=== PATIENT | female | born 1950 | race Two or more races ===

== ENCOUNTER 2020-07-25 13:25 | Outpatient (REF) | payer MEDICARE, SELFPAY ==
--- NOTE | 2020-07-25 | MM_ITS ---
EXAMINATION: MM SCREENING DIGITAL BREAST TOMOSYNTHESIS, BILATERAL CLINICAL INFORMATION: Screening. Asymptomatic. The lifetime risk of breast cancer based on the Tyrer-Cuzick Model is 3%. COMPARISON: Mammography: 09/08/2018, 08/18/2017 TECHNIQUE: Digital breast tomosynthesis is performed in both the craniocaudal and mediolateral oblique views along with computer-aided detection (CAD). Synthesized 2D images are generated from the tomosynthesis. FINDINGS: There are scattered areas of fibroglandular density (ACR BI-RADS breast composition Category b). Parenchymal pattern is similar to prior studies. There is a stable circumscribed nodule central outer left breast and intramammary node posterior upper outer right breast again seen. Bilateral parenchymal asymmetries are similar to prior studies. No developing density or interval mass or architectural abnormality. No abnormal calcifications. MM/MM tomosynthesis screening BI IMPRESSION: No significant changes from prior studies. ASSESSMENT: BI-RADS 2: Benign RECOMMENDATION: Routine annual mammography screening. This patient's information was entered into a reminder system with a target due date for their next mammogram.
== END 2020-07-25 13:26 | disposition home or self-care (01) ==
LOC: HO.MAMMO 13:25
PROVIDERS: PCP Internal Medicine; Visit Provider Internal Medicine
DX: Z12.31 Encounter for screening mammogram for malignant neoplasm of breast (principal)
CPT/HCPCS: 77063; 77067

== ENCOUNTER 2020-08-04 12:34 | Outpatient (REF) | payer MEDICARE, SELFPAY ==
[2020-08-04 13:17] LABS: MANUAL DIFF FLAG NO
[2020-08-04 13:19] LABS: Basophils Absolute Auto 0.1 X10*3/uL (0.0-0.2); Basophils Percent Auto 0.7 % (0-2); Eosinophils Absolute Auto 0.2 X10*3/uL (0.0-0.4); Eosinophils Percent Auto 1.9 % (0-4); Hematocrit 40.3 % (37-47); Hemoglobin 12.8 g/dl (12.0-16.0); Imm Gran Abs Auto 0.04 X10*3/uL (0.00-0.03); Imm Gran Pct Auto 0.4 % (0.0-0.4); Lymphocytes Absolute Auto 2.2 X10*3/uL (1.2-4.9); Lymphocytes Percent Auto 24.7 % (20-40); Mean Corpuscular HGB Conc 31.8 g/dl (31.0-35.0); Mean Corpuscular Hemoglobin 27.8 pg (27.0-33.0); Mean Corpuscular Volume 87.6 fL (80-98); Monocytes Absolute Auto 0.5 X10*3/uL (0.1-1.2); Neutrophils Absolute Auto 5.9 X10*3/uL (2.0-8.3); Neutrophils Percent Auto 66.3 % (45-73); Platelet Count 254 X10*3/uL (160-400); Red Cell Distribution Width 13.3 % (11.0-16.0)
[2020-08-04 13:37] LABS: Estimated Average Glucose 166 mg/dL; Hemoglobin A1c % 7.4 %
[2020-08-04 13:50] LABS: Alanine Aminotransferase 15 U/L (0-31); Albumin Level 4.3 g/dL (3.5-5.0); Alkaline Phosphatase 70 U/L (39-117); Anion Gap 13 (12-20); Aspartate Amino Transferase 17 U/L (5-31); Bilirubin Total 0.5 mg/dL (0.0-1.0); Blood Urea Nitrogen 19 mg/dL (9-16); Calcium 9.6 mg/dL (8.4-10.2); Carbon Dioxide 30 mmol/L (22-29); Chloride 103 mmol/L (96-108); Cholesterol 171 mg/dL; Estimated Glomerular Filt Rate 55; Glucose Fasting 136 mg/dL (60-99); HDL Cholesterol 47 mg/dL; LDL Cholesterol Calculated 96 mg/dl; Potassium 4.9 mmol/l (3.3-5.1); Sodium 141 mmol/L (135-145); Total Protein 7.5 g/dL (6.5-8.0); Triglycerides 140 mg/dL
[2020-08-04 14:01] LABS: Creatinine Urine 162.68 mg/dL; Microalbum/Creatinine Ratio Ur 39.3 ug/mg cr
== END 2020-08-04 12:35 | disposition home or self-care (01) ==
LOC: HO.LAB 12:34
PROVIDERS: PCP Internal Medicine; Visit Provider Physician Assistant
DX: E11.9 Type 2 diabetes mellitus without complications (principal); I10 Essential (primary) hypertension
CPT/HCPCS: 36415; 80053; 80061; 82043; 83036; 85025

== ENCOUNTER 2020-08-14 10:24 | Day surgery (SDC) | payer MEDICARE, SELFPAY ==
[2020-08-07 14:38] VITALS: BMI 34.5
--- NOTE | 2020-08-10 09:00 | MHC.SHP ---
Pre-Procedural Eval Section A The patient is an INPATIENT: No The History & Physical has been completed within 30 days and I have reviewed it.: Yes Section B Chief Complaint: Cataract Left Eye Allergies: Allergies Allergy/AdvReac Type Severity Reaction Status Date / Time codeine [CODEINE] Allergy Intermediate RASH Verified 08/02/20 13:56 Plan Diagnosis/Plan: Unchanged Patient has been examined and remains a candidate for the planned procedure
--- NOTE | 2020-08-11 11:25 | HO.ANESPROP2 ---
Documented by User: Kenya Navarro 08/11/20 11:27 HPI - Anesthesia Eval Consult details Narrative: 70yo F for Cataract Extraction PCP cleared Right eye done 2018; Fent 100, Midaz 20, Prop 40 [facility] Past Medical History Medical History Angina pectoris Arthritis Asthma Diabetes Elevated cholesterol GERD (gastroesophageal reflux disease) Hx of renal calculi Hx of simple renal cyst Family History Family History Father Stroke Mother Cancer Surgical History Surgical History H/O colonoscopy History of right cataract surgery History of tubal ligation History of varicose veins Social History Social History Alcohol intake: never Smoking Status: Former smoker Tobacco Type: Cigarette Smoked in Last 30 Days: No Smoking Quit Date: 1996 Use of substances other than those prescribed or required for medical reasons: No Have you been hit, kicked, punched, or otherwise hurt by someone within the past year? If so, by whom?: No Advance Directives Information Provided: No Recently lost weight without trying: No Meds Allergies Allergy/AdvReac Type Severity Reaction Status Date / Time codeine [CODEINE] Allergy Intermediate RASH Verified 08/02/20 13:56 Home Medications Medication Instructions Recorded Confirmed Type hydrochlorothiazide 12.5 mg tablet 12.5 mg PO DAILY 08/02/20 08/07/20 History amlodipine 5 mg PO DAILY 08/07/20 08/07/20 History insulin glargine [Lantus Solostar 30 unit SUBCUT QPM 08/07/20 08/07/20 History U-100 Insulin] Exam Exam Date and Time: August 11, 2020 1125 Height,Weight and Vital Signs: Height 5 ft 3 in Weight 88.451 kg Assessment and Plan Assessment Anesthesia Assessment: Chart Reviewed Documented by User: Madeline Croft 08/14/20 11:27 [facility] Past Medical History Medical History Angina pectoris Arthritis Asthma Diabetes Elevated cholesterol GERD (gastroesophageal reflux disease) Hx of renal calculi Hx of simple renal cyst Family History Family History Father Stroke Mother Cancer Surgical History Surgical History H/O colonoscopy History of right cataract surgery History of tubal ligation History of varicose veins Social History Social History Alcohol intake: never Smoking Status: Former smoker Tobacco Type: Cigarette Smoked in Last 30 Days: No Smoking Quit Date: 1996 Use of substances other than those prescribed or required for medical reasons: No Have you been hit, kicked, punched, or otherwise hurt by someone within the past year? If so, by whom?: No Advance Directives Information Provided: No Recently lost weight without trying: No Meds Allergies Allergy/AdvReac Type Severity Reaction Status Date / Time codeine [CODEINE] Allergy Intermediate RASH Verified 08/02/20 13:56 Home Medications Medication Instructions Recorded Confirmed Type hydrochlorothiazide 12.5 mg tablet 12.5 mg PO DAILY 08/02/20 08/07/20 History amlodipine 5 mg PO DAILY 08/07/20 08/07/20 History insulin glargine [Lantus Solostar 30 unit SUBCUT QPM 08/07/20 08/07/20 History U-100 Insulin] Exam Airway Mallampati Class: I TM Dist: >3cm Neck ROM: Full Loose/Missing/Broken Teeth: No Heart: RRR Lungs: CTA Assessment and Plan Assessment Anesthesia Assessment: Anesthesia Plan Discussed and Chart Reviewed Final Anesthetic Review NPO: Yes ASA Class: III Final Preanesthetic Review: Meds/Allgs Chart Reviewed, Consent Obtained/Reviewed and Anes Risks/Benef Reviewed Patient Risk: Intermediate Procedure Risk: Low Anesthetic Plan Anesthetic Plan: MAC: Disposition: Standard PACU
[2020-08-14 11:14] VITALS: BP 163/65; PULSE 56; RESP 18; TEMP 36.1; O2SAT 99
[2020-08-14 11:16] LABS: Glucose, Whole Blood 88 mg/dL (60-115)
[2020-08-14] MEDS: Tetracaine HCl/PF 0.5% Oph Sol 4 ML DROPS 1 DROP EYE-LEFT (11:27)
[2020-08-14] MEDS: Tropicamide 1 % Ophth Sol 3 ML BTL 1 DROP EYE-LEFT ×3 (11:28→11:37)
[2020-08-14] MEDS: Phenylephrine HCL 2.5% Oph SoL 2 ML BOTTLE 1 DROP EYE-LEFT ×3 (11:31→11:39)
--- NOTE | 2020-08-14 12:45 | HO.PNOPHT ---
Ophthalmology Procedure Procedure Date of Service: 08/14/20 Ophthalmology Viscoelastic: Healon Duet Dual Pack Pro Ophthalmology Lenses: TECNIS [id number] (23.5) Procedure Notes: PREOPERATIVE DIAGNOSIS: Decreased visual acuity left eye secondary to cataract POSTOPERATIVE DIAGNOSIS: Same PROCEDURE: Left cataract extraction with intraocular lens insertion SURGEON: Darius Quiroga M.D. ANESTHESIA: Topical/MAC ESTIMATED BLOOD LOSS: None COMPLICATIONS: None After obtaining informed consent, the patient was brought to the operation room suite and placed in the supine position. After adequate sedation per anesthesia, topical drops of Tetracaine were given to the left eye. The eye was then prepped and draped in the usual sterile fashion. The operating room microscope was then positioned over the operative eye and a lid speculum placed. A paracentesis was created. Viscoelastic was then instilled into the anterior chamber. A three plane incision was then created temporally, utilizing a 2.85 mm keratome. Capsulotomy forceps were then utilized to create a circular tear capsulotomy. Hydrodissection and hydrodelineation were carried out until adequate mobilization of the nucleus occurred. Phacoemulsification was then utilized to remove the dense central nucleus followed by removal of the cortical material utilizing the automated aspiration irrigation unit. Viscoat elastic was instilled into the posterior capsular bag followed by placement of a posterior chamber intraocular lens without difficulty. The residual Viscoat elastic was then removed utilizing the automated IA machine. The wound was check and found to be watertight. The patient tolerated the procedure well and the lid speculum was removed. Intracameral injection of Vigamox 0.1 mL followed by a subtenon injection of Kenalog-40 0.2 mL were administered. The patient will be seen in the a.m.
[2020-08-14 12:52] VITALS: BP 157/70; PULSE 58; RESP 18; TEMP 36.3; O2SAT 100
--- NOTE | 2020-08-14 12:55 | HO.POSTANES ---
Post Anesthesia Evaluation Post Anesthesia Evaluation Vital Signs: Vital Signs Temp Pulse Resp BP Pulse Ox 08/14/20 12:52 97.3 F 58 18 157/70 H 100 08/14/20 11:14 96.9 F 56 18 163/65 H 99 Anesthesia: Monitored Mental Status: Awake Pain Control: Satisfactory Nausea/Vomiting: None Hydration: Adequate Anesthesia-Related Issues: No Anes. Related Issues
== END 2020-08-14 14:06 | disposition home or self-care (01) ==
PROVIDERS: PCP Internal Medicine; Visit Provider Ophthalmology
PROC: (CPT 66985; principal; 2020-08-14 12:10)
DX: H25.12 Age-related nuclear cataract, left eye (principal); H54.7 Unspecified visual loss; Z96.1 Presence of intraocular lens; I10 Essential (primary) hypertension; J45.909 Unspecified asthma, uncomplicated; E11.9 Type 2 diabetes mellitus without complications; Z79.899 Other long term (current) drug therapy; Z79.4 Long term (current) use of insulin; Z87.891 Personal history of nicotine dependence
CPT/HCPCS: 66984; 82947; J2250; J3010; J3300; V2632

== ENCOUNTER → 2020-09-14 13:29 | Outpatient (BNVA) | payer MEDICARE, SELFPAY | PROVIDERS: Visit Provider Obstetrics & Gynecology | DX: Z76.89 Persons encountering health services in other specified circumstances (principal) ==

== ENCOUNTER 2020-09-19 13:25 | Outpatient (REF) | payer MEDICARE, SELFPAY ==
--- NOTE | 2020-09-19 13:29 | MM_ITS ---
EXAMINATION: BONE DENSITOMETRY CLINICAL INDICATION: Encounter for screening for osteoporosis. COMPARISON: Baseline BD dated 08/15/2016. TECHNIQUE: Using a [employer] DXA System (software version: 13.1) manufactured by [employer], dual-energy x-ray absorptiometry was performed of the lumbar spine and left hip. The images are of good technical quality. Summary results are attached. FINDINGS: AP SPINE L1-L4: Current: BMD 1.114 g/cm2, Z-score 0.5, T-score -0.5, normal, 4.1% increase from baseline (<5% change is not significant). Baseline: BMD 1.070 g/cm2. LEFT FEMUR, NECK: Current: BMD 0.858 g/cm2, Z-score 0.0, T-score -1.3, osteopenia. Baseline: BMD 0.904 g/cm2. LEFT FEMUR, TOTAL: Current: BMD 1.038 g/cm2, Z-score 1.2, T-score 0.2, normal, 3.3% decrease from baseline (<5% change is not significant). Baseline: BMD 1.073 g/cm2. IDENTIFIED RISK FACTORS: Menopause. Height loss. Low calcium intake. HISTORY OF FRACTURE: None listed. MEDICATIONS: Calcium supplement and/or multivitamin. Vitamin D. MM/XR DEXA axial skeleton IMPRESSION: 1. DIAGNOSIS: Osteopenia based on the lowest T-score value of -1.3 in the femoral neck applying World Health Organization criteria. 2. 10-YEAR FRACTURE RISK PREDICTION, FRAX: Major osteoporotic fracture (clinical spine, forearm, hip or shoulder) 4.9%. Hip fracture 0.6%. 3. Treatment Recommendations: NOF guidelines recommend consideration for treatment in postmenopausal women and men age 50 and older presenting with the following: -A hip or vertebral (clinical or morphometric) fracture. -T-score less than or equal to -2.5 at the femoral neck or spine after appropriate evaluation to exclude secondary causes. -Low bone mass at the hip or spine and a 10-year fracture probability by FRAX of greater than or equal to 3% for hip fracture or greater than or equal to 20% for major osteoporotic fracture based on the [place] adapted WHO algorithm. 4. Other Recommendations: All treatment decisions require clinical judgment and consideration of individual patient factors, including patient preferences, comorbidities, previous drug use, risk factors not captured in the FRAX model (e.g. frailty, falls, vitamin D deficiency, increased bone turnover, interval significant decline in bone density) and possible under or overestimation of fracture risk by FRAX. Additional medical evaluation for secondary cause of low bone mineral density may be appropriate. FUTURE SCAN RECOMMENDATION: People with diagnosed cases of osteoporosis or at high risk for fracture should have regular bone mineral density tests. For patients eligible for Medicare, routine testing is allowed once every 2 years. The testing frequency can be increased to one year for patients who have rapidly progressing disease, those who are receiving or discontinuing medical therapy to restore bone mass, or have additional risk factors.
== END 2020-09-19 13:26 | disposition home or self-care (01) ==
LOC: HO.MAMMO 13:25
PROVIDERS: PCP Internal Medicine; Visit Provider Obstetrics & Gynecology
DX: Z13.820 Encounter for screening for osteoporosis (principal); Z78.0 Asymptomatic menopausal state; R29.890 Loss of height; Z79.899 Other long term (current) drug therapy
CPT/HCPCS: 77080

== ENCOUNTER → 2020-10-05 15:11 | Outpatient (BNVA) | payer MEDICARE, SELFPAY | PROVIDERS: PCP Internal Medicine; Visit Provider Obstetrics & Gynecology | DX: Z13.89 Encounter for screening for other disorder (principal) | CPT/HCPCS: Q3014 ==

== ENCOUNTER 2020-10-12 13:39 | Outpatient (REF) | payer MEDICARE, SELFPAY ==
--- NOTE | ~2020-10-12 | US_ITS ---
EXAMINATION: US PELVIS COMPLETE US TRANSVAGINAL CLINICAL INFORMATION: Benign neoplasm, fibroma. COMPARISON: None TECHNIQUE: Transabdominal and transvaginal ultrasound of the pelvis is performed. FINDINGS: The uterus is anteverted and anteflexed measuring 6.5 cm in length, 2.5 cm in AP and 5.2 cm in transverse dimension. Endometrial thickness measures 0.3 cm. There are 2 hypoechoic lesions. The lesion in the posterior body of uterus measures 1.0 x 0.6 x 0.8 cm. Previously, it measured 1.0 x 0.6 x 0.7 cm. The second lesion in left body of uterus measures 1.8 x 1.5 x 1.6 cm. Previously, it measured 2.0 x 1.7 x 1.7 cm. There are small nabothian cysts seen in the endometrial canal. There are a few echogenic foci in the endometrium. Both ovaries are not seen. There is no free fluid in the pelvis. US/US transvaginal IMPRESSION: Stable uterine fibroids. Ovaries are not seen. Trace free fluid within the endometrial canal. Small nabothian cysts are seen.
--- NOTE | ~2020-10-12 | US_ITS ---
EXAMINATION: US PELVIS COMPLETE US TRANSVAGINAL CLINICAL INFORMATION: Benign neoplasm, fibroma. COMPARISON: None TECHNIQUE: Transabdominal and transvaginal ultrasound of the pelvis is performed. FINDINGS: The uterus is anteverted and anteflexed measuring 6.5 cm in length, 2.5 cm in AP and 5.2 cm in transverse dimension. Endometrial thickness measures 0.3 cm. There are 2 hypoechoic lesions. The lesion in the posterior body of uterus measures 1.0 x 0.6 x 0.8 cm. Previously, it measured 1.0 x 0.6 x 0.7 cm. The second lesion in left body of uterus measures 1.8 x 1.5 x 1.6 cm. Previously, it measured 2.0 x 1.7 x 1.7 cm. There are small nabothian cysts seen in the endometrial canal. There are a few echogenic foci in the endometrium. Both ovaries are not seen. There is no free fluid in the pelvis. US/US pelvic complete IMPRESSION: Stable uterine fibroids. Ovaries are not seen. Trace free fluid within the endometrial canal. Small nabothian cysts are seen.
== END 2020-10-12 13:40 | disposition home or self-care (01) ==
LOC: HO.US 13:39
PROVIDERS: PCP Internal Medicine; Visit Provider Obstetrics & Gynecology
DX: D21.9 Benign neoplasm of connective and other soft tissue, unspecified (principal)
CPT/HCPCS: 76830; 76856

== ENCOUNTER → 2020-10-24 11:29 | Outpatient (BNVA) | payer MEDICARE, SELFPAY | PROVIDERS: PCP Internal Medicine; Visit Provider Obstetrics & Gynecology | CPT/HCPCS: Q3014 ==

== ENCOUNTER → 2020-10-30 11:37 | Outpatient (BNVA) | payer MEDICARE, SELFPAY | PROVIDERS: PCP Internal Medicine; Visit Provider Physician Assistant | DX: K59.09 Other constipation (principal); Z12.11 Encounter for screening for malignant neoplasm of colon | CPT/HCPCS: Q3014 ==

== ENCOUNTER → 2020-11-07 14:25 | Outpatient (BNVA) | payer MEDICARE, SELFPAY | PROVIDERS: PCP Internal Medicine; Visit Provider Surgery Vascular Surgery | DX: I83.11 Varicose veins of right lower extremity with inflammation (principal) | CPT/HCPCS: 99202 ==

== ENCOUNTER 2020-11-13 12:28 | Outpatient (REF) | payer MEDICARE, MEDICAID, SELFPAY ==
--- NOTE | ~2020-11-13 | US_ITS ---
EXAMINATION: US ABDOMEN COMPLETE CLINICAL INFORMATION: Unspecified abdominal pain. COMPARISON: Ultrasound renals 04/06/2019. Ultrasound renals only 06/17/2018. CT abdomen pelvis 05/18/2018. X-ray abdomen 06/30/2014. TECHNIQUE: Real-time imaging of the abdominal viscera. FINDINGS: PANCREAS: Normal. ABDOMINAL AORTA: The proximal, mid, and distal segments are normal in caliber. INFERIOR VENA CAVA: Visualized portions are normal. LIVER: The liver is diffusely increased in echogenicity. The liver contour is normal. No focal hepatic lesion. There is no intrahepatic biliary duct dilatation seen. GALLBLADDER: The gallbladder is physiologically distended. Multiple mobile echogenic gallstones are present. No evidence of gallbladder wall thickening or pericholecystic fluid. COMMON BILE DUCT: Normal in caliber measuring 0.23 cm in diameter. RIGHT KIDNEY: Normal. No hydronephrosis. No renal calculi or focal parenchymal lesions. The kidney measures 10.7 cm in maximum dimension. LEFT KIDNEY: There are several anechoic cysts, all lower pole cyst measures 2.3 x 2.7 x 1.9 cm,, upper pole cyst measures 2.2 x 2.7 x 2.5 cm and midpole cyst measures 0.9 x 0.45 a 0.47 cm. No hydronephrosis or renal calculi. The kidney measures 12.1 cm in maximum dimension. SPLEEN: Normal. The spleen measures 10.3 cm in maximum dimension. FREE FLUID: None. US/US abdomen complete IMPRESSION: Gallstones without wall thickening. Hepatic steatosis without focal lesion. Multiple left renal cysts.
== END 2020-11-13 12:29 | disposition home or self-care (01) ==
LOC: HO.US 12:28
PROVIDERS: PCP Internal Medicine; Visit Provider Internal Medicine
DX: R10.9 Unspecified abdominal pain (principal)
CPT/HCPCS: 76700

== ENCOUNTER 2020-11-14 12:31 | Outpatient (REF) | payer MEDICARE, MEDICAID, SELFPAY ==
--- NOTE | ~2020-11-14 | US_ITS ---
EXAMINATION: RIGHT and LEFT LOWER EXTREMITY VENOUS ULTRASOUND (Reflux Exam) CLINICAL INDICATION: Varicose veins of the right lower extremity. Patient states history of laser ablation of bilateral greater saphenous veins. COMPARISON: Previous exam October 2017. TECHNIQUE: Color flow triplex imaging and compression Doppler was performed to evaluate both the deep and the superficial systems bilaterally. To evaluate the superficial system, the examination was performed in the upright position. Color-flow Doppler ultrasound and compression ultrasound were utilized. In addition, maneuvers were utilized to demonstrate reflux. FINDINGS: 1. DEEP VENOUS ULTRASOUND OF THE RIGHT LOWER EXTREMITY: Respiratory variation, normal compression and augmented flow are noted in the right common femoral vein as well as the right popliteal vein and there is no evidence of deep venous thrombosis at these locations. There is no evidence of reflux in the deep system in either the common femoral vein or the popliteal vein. There is no evidence of a Cuello's cyst. 2. SUPERFICIAL ULTRASOUND WITH DOPPLER OF RIGHT LOWER EXTREMITY: The right great saphenous vein at the saphenofemoral junction measures 8 mm, at the mid thigh 3 mm and 6 mm in the proximal thigh. The remainder of the right greater saphenous vein is not seen. There is a medial accessory right greater saphenous vein that measures 3 mm. There is no reflux demonstrated in the right great saphenous vein. The right small saphenous vein measures 1 mm and shows no reflux. There is a varicosity in the proximal thigh that travels anterolaterally into the lateral calf. This measures 3 - 4 mm and demonstrates greater than 3.2 seconds reflux. 3. DEEP VENOUS ULTRASOUND OF THE LEFT LOWER EXTREMITY: Respiratory variation, normal compression and augmented flow are noted in the left common femoral vein as well as the left popliteal vein and there is no evidence of deep venous thrombosis at these locations. There is no evidence of reflux in the deep system in either the common femoral vein or the popliteal vein. . There is no evidence of a Cuello's cyst. 4. SUPERFICIAL ULTRASOUND WITH DOPPLER OF LEFT LOWER EXTREMITY: Left great saphenous vein at the saphenofemoral junction measures 5 mm, at the mid thigh to mm, above the knee 2 mm, below the knee 2 mm, at mid calf 2 mm and at the ankle measures 3 mm. There is no reflux demonstrated in the left great saphenous vein. There is a medial accessory greater saphenous vein that measures 3 to 4 mm and does not demonstrate reflux. The left small saphenous vein is not visualized. US/US venous duplex LE BI IMPRESSION: 1. No evidence of reflux or thrombus in the common femoral veins or popliteal veins bilaterally. 2. Right greater saphenous vein visualized at the saphenofemoral junction to the mid thigh. No right greater saphenous vein reflux. Varicosity in the left thigh and calf that demonstrates greater than 3.2 seconds reflux. Left greater saphenous vein visualized in entirety. No left greater saphenous vein reflux or varicosities seen.
== END 2020-11-14 12:32 | disposition home or self-care (01) ==
LOC: HO.US 12:31
PROVIDERS: Visit Provider Surgery Vascular Surgery
DX: I83.11 Varicose veins of right lower extremity with inflammation (principal)
CPT/HCPCS: 93970

== ENCOUNTER → 2020-11-28 13:27 | Outpatient (BNVA) | payer MEDICARE, MEDICAID, SELFPAY | PROVIDERS: PCP Internal Medicine; Visit Provider Surgery Vascular Surgery | DX: I83.11 Varicose veins of right lower extremity with inflammation (principal) | CPT/HCPCS: 99212 ==

== ENCOUNTER → 2020-12-25 11:21 | Outpatient (BNVA) | payer MEDICARE, SELFPAY | PROVIDERS: PCP Internal Medicine; Visit Provider Physician Assistant | DX: K59.09 Other constipation (principal) | CPT/HCPCS: 99202 ==

== ENCOUNTER → 2021-03-14 13:36 | Outpatient (BNVA) | payer MEDICARE, SELFPAY | PROVIDERS: PCP Internal Medicine; Visit Provider Internal Medicine Endocrinology, Diabetes & Metabolism | DX: E11.21 Type 2 diabetes mellitus with diabetic nephropathy (principal); E11.42 Type 2 diabetes mellitus with diabetic polyneuropathy; E11.3299 Type 2 diabetes mellitus with mild nonproliferative diabetic retinopathy without macular edema, unspecified eye; E78.5 Hyperlipidemia, unspecified; I10 Essential (primary) hypertension | CPT/HCPCS: 82947; 99212 ==

== ENCOUNTER → 2021-03-21 13:31 | Outpatient (BNVA) | payer MEDICARE, SELFPAY | PROVIDERS: PCP Internal Medicine; Referring Provider Internal Medicine; Visit Provider Physician Assistant | DX: K59.09 Other constipation (principal); K80.20 Calculus of gallbladder without cholecystitis without obstruction; K76.0 Fatty (change of) liver, not elsewhere classified; E11.21 Type 2 diabetes mellitus with diabetic nephropathy; E11.42 Type 2 diabetes mellitus with diabetic polyneuropathy; E11.3299 Type 2 diabetes mellitus with mild nonproliferative diabetic retinopathy without macular edema, unspecified eye; Z87.891 Personal history of nicotine dependence; Z88.5 Allergy status to narcotic agent; Z79.4 Long term (current) use of insulin; Z79.899 Other long term (current) drug therapy | CPT/HCPCS: Q3014 ==

== ENCOUNTER → 2021-04-05 13:29 | Outpatient (BNVA) | payer MEDICARE, SELFPAY | PROVIDERS: PCP Internal Medicine; Referring Provider Internal Medicine; Visit Provider Surgery | DX: K80.20 Calculus of gallbladder without cholecystitis without obstruction (principal) | CPT/HCPCS: 99202 ==

== ENCOUNTER 2021-06-27 11:37 | Outpatient (REF) | payer MEDICARE, SELFPAY ==
[2021-06-27 11:59] LABS: MANUAL DIFF FLAG NO
[2021-06-27 13:01] LABS: Basophils Absolute Auto 0.1 X10*3/uL (0.0-0.2); Basophils Percent Auto 0.6 % (0-2); Eosinophils Absolute Auto 0.2 X10*3/uL (0.0-0.4); Eosinophils Percent Auto 2.2 % (0-4); Hemoglobin 12.8 g/dl (12.0-16.0); Imm Gran Abs Auto 0.03 X10*3/uL (0.00-0.03); Imm Gran Pct Auto 0.4 % (0.0-0.4); Lymphocytes Absolute Auto 2.1 X10*3/uL (1.2-4.9); Lymphocytes Percent Auto 25.9 % (20-40); Mean Corpuscular HGB Conc 31.2 g/dl (31.0-35.0); Mean Corpuscular Hemoglobin 27.7 pg (27.0-33.0); Mean Corpuscular Volume 88.7 fL (80-98); Mean Platelet Volume 10.9 fL (9.4-12.3); Monocytes Absolute Auto 0.5 X10*3/uL (0.1-1.2); Monocytes Percent Auto 6.4 % (2-11); Neutrophils Absolute Auto 5.2 X10*3/uL (2.0-8.3); Neutrophils Percent Auto 64.5 % (45-73); Platelet Count 283 X10*3/uL (160-400); Red Blood Count 4.62 X10*6/uL (4.20-5.50); Red Cell Distribution Width 12.5 % (11.0-16.0); White Blood Count 8.1 X10*3/uL (4.8-10.8)
[2021-06-27 13:24] LABS: Alanine Aminotransferase 11 U/L (0-31); Albumin Level 4.3 g/dL (3.5-5.0); Alkaline Phosphatase 60 U/L (39-117); Anion Gap 14 (12-20); Aspartate Amino Transferase 16 U/L (5-31); Bilirubin Total 0.6 mg/dL (0.0-1.0); Blood Urea Nitrogen 26 mg/dL (9-16); Calcium 9.8 mg/dL (8.4-10.2); Carbon Dioxide 27 mmol/L (22-29); Chloride 105 mmol/L (96-108); Cholesterol 159 mg/dL; Estimated Glomerular Filt Rate 39; Glucose Fasting 132 mg/dL (60-99); HDL Cholesterol 42 mg/dL; LDL Cholesterol Calculated 86 mg/dl; Potassium 4.9 mmol/L (3.3-5.1); Sodium 141 mmol/L (135-145); Total Protein 7.5 g/dL (6.5-8.0); Triglycerides 159 mg/dL
[2021-06-27 13:26] LABS: Creatinine Urine 140.25 mg/dL; Microalbum/Creatinine Ratio Ur 29.9 ug/mg cr
[2021-06-27 13:50] LABS: SARS COV2 IgG Negative (Negative)
[2021-07-02 14:51] LABS: Vitamin D 25-OH, D2 <4 ng/mL; Vitamin D 25-OH, D3 39 ng/mL; Vitamin D 25-OH, Total 39 ng/mL (30-100)
== END 2021-06-27 11:38 | disposition home or self-care (01) ==
LOC: HO.LAB 11:37
PROVIDERS: PCP Internal Medicine; Visit Provider Internal Medicine
DX: R05.9 Cough, unspecified (principal); E55.9 Vitamin D deficiency, unspecified; E11.9 Type 2 diabetes mellitus without complications; D64.9 Anemia, unspecified; E78.5 Hyperlipidemia, unspecified
CPT/HCPCS: 36415; 80053; 80061; 82043; 82306; 85025; 86769

== ENCOUNTER → 2021-07-23 13:30 | Outpatient (BNVA) | payer MEDICARE, SELFPAY | PROVIDERS: PCP Internal Medicine; Visit Provider Nurse Practitioner Gerontology | DX: E11.21 Type 2 diabetes mellitus with diabetic nephropathy (principal); E11.3299 Type 2 diabetes mellitus with mild nonproliferative diabetic retinopathy without macular edema, unspecified eye; E78.5 Hyperlipidemia, unspecified; E66.09 Other obesity due to excess calories; I10 Essential (primary) hypertension; Z68.34 Body mass index [BMI] 34.0-34.9, adult | CPT/HCPCS: 82947; 99212 ==

== ENCOUNTER → 2021-08-06 12:33 | Outpatient (BNVA) | payer MEDICARE, SELFPAY | PROVIDERS: PCP Internal Medicine; Visit Provider Dietitian, Registered | DX: E11.21 Type 2 diabetes mellitus with diabetic nephropathy (principal) | CPT/HCPCS: 97803 ==

== ENCOUNTER → 2021-08-16 13:32 | Outpatient (BNVA) | payer MEDICARE, SELFPAY | PROVIDERS: PCP Internal Medicine; Visit Provider Obstetrics & Gynecology | DX: N81.10 Cystocele, unspecified (principal) | CPT/HCPCS: 99212 ==

== ENCOUNTER → 2021-09-18 13:32 | Outpatient (BNVA) | payer MEDICARE, SELFPAY | PROVIDERS: PCP Internal Medicine; Visit Provider Obstetrics & Gynecology ==

== ENCOUNTER 2021-11-06 12:27 | Outpatient (REF) | payer MEDICARE, SELFPAY ==
[2021-11-06 13:50] LABS: Alanine Aminotransferase 13 U/L (0-31); Albumin Level 4.1 g/dL (3.5-5.0); Alkaline Phosphatase 60 U/L (39-117); Anion Gap 15 (12-20); Aspartate Amino Transferase 18 U/L (5-31); Bilirubin Total 0.5 mg/dL (0.0-1.0); Blood Urea Nitrogen 29 mg/dL (9-16); Calcium 9.8 mg/dL (8.4-10.2); Carbon Dioxide 27 mmol/L (22-29); Chloride 105 mmol/L (96-108); Cholesterol 197 mg/dL; Estimated Glomerular Filt Rate 45; Glucose Fasting 143 mg/dL (60-99); HDL Cholesterol 48 mg/dL; LDL Cholesterol Calculated 117 mg/dl; Potassium 4.6 mmol/L (3.3-5.1); Sodium 142 mmol/L (135-145); Total Protein 7.4 g/dL (6.5-8.0); Triglycerides 161 mg/dL
[2021-11-06 14:31] LABS: Creatinine Urine 196.24 mg/dL; Microalbum/Creatinine Ratio Ur 10.1 ug/mg cr
[2021-11-10 08:23] LABS: SARS COV2 IgG Negative (Negative)
[2021-11-10 13:21] LABS: Vitamin D 25-OH, D2 <4 ng/mL; Vitamin D 25-OH, D3 41 ng/mL; Vitamin D 25-OH, Total 41 ng/mL (30-100)
== END 2021-11-06 12:28 | disposition home or self-care (01) ==
LOC: HO.LAB 12:27
PROVIDERS: PCP Internal Medicine; Visit Provider Internal Medicine
DX: Z20.822 Contact with and (suspected) exposure to COVID-19 (principal); E11.42 Type 2 diabetes mellitus with diabetic polyneuropathy; E78.5 Hyperlipidemia, unspecified; E55.9 Vitamin D deficiency, unspecified
CPT/HCPCS: 36415; 80053; 80061; 82043; 82306; 86769

== ENCOUNTER 2021-11-15 14:42 | Outpatient (REF) | payer MEDICARE, SELFPAY ==
--- NOTE | ~2021-11-15 | MR_ITS ---
EXAMINATION: MR BRAIN WITHOUT CONTRAST CLINICAL INFORMATION: Headaches COMPARISON: None. TECHNIQUE: Multiplanar, multisequence imaging of the brain was performed without contrast. FINDINGS: No diffusion abnormalities are identified to suggest an acute infarct. The ventricles are normal in size. No mass effect or midline shift is seen. Mild chronic white matter microangiopathic changes are visible. There is a small chronic infarct in the anterior right frontal periventricular white matter. No extra-axial fluid collections are seen. The brainstem and cerebellum are normal. The gradient refocused acquisition is normal. There is a small chronic infarct in the anterior body of the corpus callosum. The craniovertebral junction, marrow signal, and remaining midline structures are normal. The major intracranial flow voids at the level of the stebbins of K[place] are preserved. The dural venous sinus flow voids are maintained. The mastoid air cells are well aerated. There are retention cysts in the maxillary sinuses, measuring up to 2.4 cm in diameter on the right side with mild ethmoid sinus mucosal thickening. There is exuberant right-sided facet arthropathy partially visualized on sagittal imaging at the C4-C5 level. MR/MR head/brain wo con IMPRESSION: No acute intracranial process. Mild chronic white matter microangiopathic changes. 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
== END 2021-11-15 14:43 | disposition home or self-care (01) ==
LOC: HO.MRI 14:42
PROVIDERS: Visit Provider Internal Medicine
DX: R51.9 Headache, unspecified (principal)
CPT/HCPCS: 70551

== ENCOUNTER 2021-11-23 13:25 | Outpatient (REF) | payer MEDICARE, SELFPAY ==
--- NOTE | ~2021-11-23 | MM_ITS ---
EXAMINATION: MM SCREENING DIGITAL BREAST TOMOSYNTHESIS, BILATERAL CLINICAL INFORMATION: Screening. Asymptomatic. The lifetime risk of breast cancer based on the Tyrer-Cuzick Model is 3%. COMPARISON: Mammography: 07/25/2020, 09/08/2018, 08/18/2017, 07/17/2016 TECHNIQUE: Digital breast tomosynthesis is performed in both the craniocaudal and mediolateral oblique views along with computer-aided detection (CAD). Synthesized 2D images are generated from the tomosynthesis. FINDINGS: There are scattered areas of fibroglandular density (ACR BI-RADS breast composition Category b). Parenchymal pattern is similar to prior studies. There is a stable circumscribed nodule central mid upper outer left breast and stable nodule posterior upper outer right breast. There is no developing density or interval mass or architectural abnormality. No abnormal calcifications. The axilla and skin contours are unremarkable. No significant changes from prior studies. MM/MM tomosynthesis screening BI IMPRESSION: No mammographic evidence of malignancy. ASSESSMENT: BI-RADS 2: Benign RECOMMENDATION: Routine annual mammography screening. This patient's information was entered into a reminder system with a target due date for their next mammogram.
== END 2021-11-23 13:26 | disposition home or self-care (01) ==
LOC: HO.MAMMO 13:25
PROVIDERS: PCP Internal Medicine; Visit Provider Internal Medicine
DX: Z12.31 Encounter for screening mammogram for malignant neoplasm of breast (principal)
CPT/HCPCS: 77063; 77067

== ENCOUNTER 2022-03-26 12:30 | Outpatient (REF) | payer OTHER, SELFPAY ==
[2022-03-26 12:51] LABS: MANUAL DIFF FLAG NO
[2022-03-26 13:03] LABS: Basophils Absolute Auto 0.1 X10*3/uL (0.0-0.2); Basophils Percent Auto 0.7 % (0-2); Eosinophils Absolute Auto 0.2 X10*3/uL (0.0-0.4); Eosinophils Percent Auto 2.6 % (0-4); Hematocrit 40.9 % (37.0-47.0); Hemoglobin 12.7 g/dl (12.0-16.0); Imm Gran Abs Auto 0.03 X10*3/uL (0.00-0.03); Imm Gran Pct Auto 0.4 % (0.0-0.4); Lymphocytes Absolute Auto 1.8 X10*3/uL (1.2-4.9); Lymphocytes Percent Auto 21.5 % (20-40); Mean Corpuscular HGB Conc 31.1 g/dl (31.0-35.0); Mean Corpuscular Hemoglobin 27.1 pg (27.0-33.0); Mean Corpuscular Volume 87.2 fL (80.0-98.0); Mean Platelet Volume 10.5 fL (9.4-12.3); Monocytes Absolute Auto 0.5 X10*3/uL (0.1-1.2); Neutrophils Absolute Auto 5.9 x10*3/uL (2.0-8.3); Neutrophils Percent Auto 68.8 % (45-73); Platelet Count 297 X10*3/uL (160-400); Red Blood Count 4.69 X10*6/uL (4.20-5.50); Red Cell Distribution Width 13.2 % (11.0-16.0); White Blood Count 8.6 X10*3/uL (4.8-10.8)
[2022-03-26 16:05] LABS: Alanine Aminotransferase 12 U/L (0-31); Albumin Level 4.3 g/dL (3.5-5.0); Alkaline Phosphatase 57 U/L (39-117); Anion Gap 12 (12-20); Aspartate Amino Transferase 15 U/L (5-31); Bilirubin Direct 0.2 mg/dL (0.0-0.5); Bilirubin Total 0.5 mg/dL (0.0-1.0); Blood Urea Nitrogen 25 mg/dL (9-16); Calcium 9.7 mg/dL (8.4-10.2); Carbon Dioxide 28 mmol/L (22-29); Chloride 106 mmol/L (96-108); Cholesterol 179 mg/dL; Estimated Glomerular Filt Rate 44; Glucose Fasting 156 mg/dL (60-99); HDL Cholesterol 47 mg/dL; LDL Cholesterol Calculated 96 mg/dl; Potassium 4.9 mmol/L (3.3-5.1); Sodium 141 mmol/L (135-145); Total Protein 7.7 g/dL (6.5-8.0); Triglycerides 183 mg/dL
[2022-03-27 08:10] LABS: HBS Num1 1.16 mIU/mL (0-7.99); HBc Num1 0.11 S/CO (0.00-0.79); HBsAGNum1 0.14 S/CO (0.00-0.99); Hepatitis A Antibody IgM 0.27 Index (0-0.79); Hepatitis B Core Antibody Nonreactive (Nonreactive); Hepatitis B Surface Antigen Negative (Negative); ~HepC Num1 0.12 S/CO (0.00-0.79); ~Hepatitis A Antibody IgM Nonreactive (Nonreactive); ~Hepatitis B Surface Antibody NONREACTIVE (Nonreactive); ~Hepatitis C Antibody Nonreactive (Nonreactive)
== END 2022-03-26 12:31 | disposition home or self-care (01) ==
LOC: HO.LAB 12:30
PROVIDERS: PCP Internal Medicine; Visit Provider Nurse Practitioner Family
DX: I10 Essential (primary) hypertension (principal); K76.0 Fatty (change of) liver, not elsewhere classified; N81.2 Incomplete uterovaginal prolapse; E78.00 Pure hypercholesterolemia, unspecified
CPT/HCPCS: 36415; 80053; 80061; 80076; 82248; 85025; 86704; 86706; 86709; 86803; 87340

== ENCOUNTER 2022-07-09 12:54 | Outpatient (REF) | payer OTHER, SELFPAY ==
[2022-07-09 16:08] LABS: Alanine Aminotransferase 12 U/L (0-31); Albumin Level 4.3 g/dL (3.5-5.0); Alkaline Phosphatase 69 U/L (39-117); Anion Gap 17 (12-20); Aspartate Amino Transferase 18 U/L (5-31); Bilirubin Total 0.4 mg/dL (0.0-1.0); Blood Urea Nitrogen 26 mg/dL (9-16); Calcium 9.8 mg/dL (8.4-10.2); Carbon Dioxide 28 mmol/L (22-29); Chloride 102 mmol/L (96-108); Cholesterol 163 mg/dL; Estimated Glomerular Filt Rate 47; Glucose Fasting 161 mg/dL (60-99); HDL Cholesterol 48 mg/dL; LDL Cholesterol Calculated 83 mg/dl; Potassium 4.4 mmol/L (3.3-5.1); Sodium 143 mmol/L (135-145); Total Protein 7.7 g/dL (6.5-8.0); Triglycerides 163 mg/dL
[2022-07-09 16:29] LABS: Vitamin D 25-OH Total 66.2 ng/mL (>30)
[2022-07-09 17:32] LABS: Creatinine Urine 190.83 mg/dL; Microalbum/Creatinine Ratio Ur 43.4 ug/mg cr
== END 2022-07-09 12:55 | disposition home or self-care (01) ==
LOC: HO.LAB 12:54
PROVIDERS: PCP Internal Medicine; Visit Provider Internal Medicine
DX: E11.42 Type 2 diabetes mellitus with diabetic polyneuropathy (principal); E55.9 Vitamin D deficiency, unspecified; E78.5 Hyperlipidemia, unspecified
CPT/HCPCS: 36415; 80053; 80061; 82043; 82306

== ENCOUNTER 2022-10-01 13:25 | Outpatient (REF) | payer OTHER, SELFPAY ==
--- NOTE | ~2022-10-01 | XR_ITS ---
EXAMINATION: XR RIGHT HAND, LEFT RIBS AND CHEST X- CLINICAL INFORMATION: Pleurodynia. Right hand pain. COMPARISON: None. TECHNIQUE: Right hand 3 views. Left ribs 3 views. Chest 2 views. FINDINGS: Right Hand: There is no visible acute fracture, dislocation or subluxation. The MCP, PIP and DIP joints are normal. No bony erosive changes or spurring. A 4 mm lucency is seen in the mid 2nd metacarpal bone marrow. Chest: The lungs are well expanded and clear. The heart size and pulmonary vascularity is normal. No gross bony abnormality seen. Left Ribs: Multiple views of left ribs reveal no visible bony abnormality. No acute fracture or lytic process seen. XR/XR chest 2V IMPRESSION: There is is no visible acute fracture, dislocation. MCP, PIP and DIP joints are normal. The soft tissues are normal. Unremarkable chest x-ray and left rib exam.
--- NOTE | ~2022-10-01 | XR_ITS ---
EXAMINATION: XR RIGHT HAND, LEFT RIBS AND CHEST X- CLINICAL INFORMATION: Pleurodynia. Right hand pain. COMPARISON: None. TECHNIQUE: Right hand 3 views. Left ribs 3 views. Chest 2 views. FINDINGS: Right Hand: There is no visible acute fracture, dislocation or subluxation. The MCP, PIP and DIP joints are normal. No bony erosive changes or spurring. A 4 mm lucency is seen in the mid 2nd metacarpal bone marrow. Chest: The lungs are well expanded and clear. The heart size and pulmonary vascularity is normal. No gross bony abnormality seen. Left Ribs: Multiple views of left ribs reveal no visible bony abnormality. No acute fracture or lytic process seen. XR/XR hand RT 2V IMPRESSION: There is is no visible acute fracture, dislocation. MCP, PIP and DIP joints are normal. The soft tissues are normal. Unremarkable chest x-ray and left rib exam.
--- NOTE | ~2022-10-01 | XR_ITS ---
EXAMINATION: XR RIGHT HAND, LEFT RIBS AND CHEST X- CLINICAL INFORMATION: Pleurodynia. Right hand pain. COMPARISON: None. TECHNIQUE: Right hand 3 views. Left ribs 3 views. Chest 2 views. FINDINGS: Right Hand: There is no visible acute fracture, dislocation or subluxation. The MCP, PIP and DIP joints are normal. No bony erosive changes or spurring. A 4 mm lucency is seen in the mid 2nd metacarpal bone marrow. Chest: The lungs are well expanded and clear. The heart size and pulmonary vascularity is normal. No gross bony abnormality seen. Left Ribs: Multiple views of left ribs reveal no visible bony abnormality. No acute fracture or lytic process seen. XR/XR ribs LT 2V IMPRESSION: There is is no visible acute fracture, dislocation. MCP, PIP and DIP joints are normal. The soft tissues are normal. Unremarkable chest x-ray and left rib exam.
== END 2022-10-01 13:26 | disposition home or self-care (01) ==
LOC: HO.XRAY 13:25
PROVIDERS: PCP Internal Medicine; Visit Provider Internal Medicine
DX: R07.81 Pleurodynia (principal); R06.00 Dyspnea, unspecified; M79.641 Pain in right hand
CPT/HCPCS: 71046; 71100; 73120

== ENCOUNTER 2023-03-12 11:44 | Outpatient (AMB) | payer OTHER, SELFPAY ==
[2023-03-12 11:47] VITALS: BP 132/80; PULSE 78; O2SAT 98; BMI 32.6
--- NOTE | 2023-03-12 11:47 | A.OFFPC_ITS ---
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 Required: No Accompanied by: Self / Same As Patient Allergies codeine [CODEINE] Allergy (Intermediate, Verified 03/12/23 11:59) RASH Seasonal Allergies Allergy (Mild, Verified 03/12/23 11:59) itchy eye Medication List - Last Reconciled 03/12/23 by Roxanne Glaser MD acetaminophen 1,000 mg (2 x 500 mg) PO Q6H PRN alcohol swabs (Alcohol Prep Pads) 1 pad topical BID 90 days amlodipine 5 mg PO DAILY 90 days blood sugar diagnostic (Accu-Chek Isabela Plus test strips) twice a day blood sugar diagnostic ([employer] Ultra Test strips) USE 1 TO TEST BLOOD SUGAR THREE TIMES DAILY blood-glucose meter (LPATH Ultra2 Meter kit) As directed calcium carbonate-vitamin D3 500 mg-10 mcg (400 unit) (Oyster Shell Calcium- Vitamin D3) 1 tab PO BID calcium polycarbophil (Fiber-Lax) 1,250 mg (2 x 625 mg) PO DAILY 90 days chlorthalidone 12.5 mg PO DAILY cholecalciferol (vitamin D3) 25 mcg PO DAILY 90 days docusate sodium (Colace) 100 mg PO BID 30 days hydrochlorothiazide 12.5 mg PO DAILY 90 days hydroquinone 4% 1 appl topical DAILY 30 days insulin glargine (Lantus Solostar U-100 Insulin) 35 units (0.35 mL) subcut QPM 90 days lactulose 15 mL PO BEDTIME 30 days lancets ([employer] UltraSoft Lancets) Use 1 lancet three times a day lidocaine 5% 1 appl topical BEDTIME PRN 30 days lisinopril 20 mg (2 x 10 mg) PO DAILY 90 days magnesium oxide 500 mg PO DAILY 90 days melatonin 3 mg PO BEDTIME PRN methylcellulose (laxative) (Fiber Laxative (methylcellulose)) 500 mg PO BID nystatin 1 appl topical DAILY 30 days pen needle, diabetic (1st Tier Unifine Pentips Plus) Use 1 pen needle once a day polyethylene glycol 3350 (Miralax) 17 grams PO DAILY rosuvastatin 40 mg PO DAILY 90 days vitamin E (dl, acetate) 90 mg PO DAILY 90 days Tobacco use date assessed: 03/12/23 Fall risk assessment: No Falls in past year Last assessed Fall Risk: 03/12/23 Dental Screening Dental Screen Date: 03/12/23 Did you have a dental visit in the last 12 months?: Yes Did you have a dental problem in the last 6 months where you did not have access to dental care?: No Was dental information given to patient?: Patient has dentist HPI HPI Comments History of Present Illness Details This is a 72-year-old female with diabetes mellitus type 2 on long-term current use of insulin, hypertension and hyperlipidemia that comes today complaining of left foot pain with a small lump after something drop on her foot back in November. A1c elevated and I will increase insulin. Blood pressure stable. I will order lipid panel and her LDL goal should be less than 70. No chest pain or shortness of breath. Has full range of motion left foot. [facility] Medical History Abdominal pain Angina pectoris Arthritis Asthma Chronic constipation Diabetes Diabetic nephropathy associated with type 2 diabetes mellitus Diabetic polyneuropathy associated with type 2 diabetes mellitus Dyslipidemia Dyslipidemia Elevated cholesterol Gallstones GERD (gastroesophageal reflux disease) Headache Hx of renal calculi Hx of simple renal cyst Insomnia Mild nonproliferative diabetic retinopathy associated with type 2 diabetes mellitus Obesity due to excess calories Skin lesion Venous (peripheral) insufficiency Surgical History H/O colonoscopy History of right cataract surgery History of tubal ligation History of varicose veins Family History Father Stroke Mother Cancer Brother Mental health disorder Social History Household Members: None Household Members Other:: Lives alone Housing: Apartment Alcohol intake: never Patient Tobacco Use Status: Former Tobacco user Tobacco use type: Cigarette e-Cigarette/Vaping Use: Never Used Second Hand Smoke Exposure: No service: No Current occupational status: disabled Cognitive needs: No Hearing needs: No Vision needs: Yes Female Reproductive History Menstrual Age of Menarche: 13 Questionnaire Thrive Questionnaire Date Thrive assessed: 03/12/23 I am a: Patient What is your living situation today?: I have a steady place to live Within the past 12 months, did the food you bought not last and you didn't have the money to get more?: Never true Within the past 12 months, did you worry whether your food would run out before you got money to buy more?: Never true Do you have trouble paying for medicines?: No Do you have trouble getting transportation to medical appointments?: No Do you have trouble paying your heating and electricity bill?: No Do you have trouble taking care of your child, family member or friend?: No Do you have trouble with day-to-day activities such as bathing, preparing meals, shopping, managing finances, etc.?: No Are you currently unemployed and looking for a job?: No Are you interested in more education?: No Please select the resources that you would like help with: None Currently or been in a relationship where the following occur: no concerns repor megha AUDIT C Alcohol Use Questionnaire (AUDIT-C) 1. How often do you have a drink containing alcohol?: Never Total Score: 0 DINESH-7 AMB Questionnaire DINESH-7 Date DINESH - 7 assessed: 03/12/23 Feeling nervous, anxious, or on edge: 3 = Nearly every day Not being able to stop or control worryin = Several days Worrying too much about different things: 3 = Nearly every day Trouble relaxin = Not at all Being so restless that it is hard to sit still: 0 = Not at all Becoming easily annoyed or irritable: 3 = Nearly every day Feeling afraid as if something awful might happen: 0 = Not at all Total DINESH-7 score (0-4 normal; 5-9 mild; 10-14 moderate; 15-21 severe): 10 Source: Developed by Drs. Cyril Mesa, Yvette Granados, Norberto Mcrae and colleagues, with an educational irene from [employer]. DINESH-7 Assessment Billing DINESH-7 Assessment Tool: DINESH-7 Assessment 41680 Review of Systems Const All systems reviewed & are unremarkable except as noted in HPI and below Eyes Reports no additional complaints, Denies change in vision and Denies other visual disturbances Card Denies chest pain at rest, Denies chest pain with activity, Denies edema, Denies irregular heart rhythm, Denies claudication, Denies dyspnea, Denies dyspnea on exertion, Denies orthopnea, Denies paroxysmal nocturnal dyspnea and Denies slow heart rate Resp Denies cough, Denies dyspnea and Denies dyspnea on exertion GI Denies abdominal pain, Denies change in bowel habits, Denies excessive flatus, Denies nausea and Denies vomiting Denies urinary incontinence, Denies urinary hesitancy and Denies urinary urgency Musc Denies abnormal gait, Denies atrophy, Denies deformity and Denies limited range of motion Skin/Breast Denies bleeding lesions, Denies changing lesions and Denies rash Neuro Denies abnormal gait and Denies lack of coordination Physical exam (Primary Care) Vital Signs: Last Vital Signs Pulse 78 03/12/23 11:47 BP 132/80 03/12/23 11:47 Pulse Ox 98 03/12/23 11:47 Oxygen Delivery Method Room Air 03/12/23 11:47 BMI result Body Mass Index 32.6 Tobacco/Smoking Status: Tobacco use Status Tobacco use date assessed 03/12/23 03/12/23 11:55 Patient Tobacco Use Status Former Tobacco user 03/12/23 11:55 Tobacco use type Cigarette 03/12/23 11:55 e-Cigarette/Vaping Use Never Used 03/12/23 11:55 Thrive Assessment: Date of Thrive Assessment Date Thrive assessed 03/12/23 03/12/23 11:55 Currently or been in a relationship where the following occur: no concerns reported Eyes General: appearance normal, both eyes and all related structures Eyelids: Yes eyelids normal Conjunctivae: conjunctivae normal Neck Neck: Yes normal visual inspection and Yes supple Resp Effort & Inspection: normal respiratory effort Auscultation: clear to auscultation bilaterally Cardio Jugular venous distension: no JVD Rate: regular rate Rhythm: regular rhythm Heart sounds: S1 normal heart sound present and S2 normal heart sound present Extrem General: Yes full ROM Results AMB Hemoglobin A1c AMB Hemoglobin A1c 8.5 % Last Edit by Keely Mir on 03/12/23 11:59 Assessment and Plan Assessment & Plan (1) DMII (diabetes mellitus, type 2): Code(s): E11.9 - Type 2 diabetes mellitus without complications Qualifiers: Diabetes mellitus termite exterminator insulin use: without termite exterminator use Diabetes mellitus complication status: with kidney complications Diabetes mellitus complication detail: with nephropathy Qualified Code(s): E11.21 - Type 2 diabetes mellitus with diabetic nephropathy Plan: Increase Lantus from 35 units to 40 units. A1c goal is equal or less than 7%. (2) HTN (hypertension): Code(s): I10 - Essential (primary) hypertension Qualifiers: Hypertension type: essential hypertension Qualified Code(s): I10 - Essential (primary) hypertension Plan: Continue amlodipine. Blood pressure goal is equal or less than 130/80. Continue lisinopril. (3) Dyslipidemia: Code(s): E78.5 - Hyperlipidemia, unspecified Plan: Continue statins. LDL goal is less than 70. (4) Left foot pain: Code(s): M79.672 - Pain in left foot Plan: X-ray ordered Orders: Orders Vitamin B12 and Folate Today E53.8 - Deficiency of other specified B group dionte mins Comprehensive [place]. Panel Fast Today E78.5 - Hyperlipidemia, unspecified Lipid Panel Today E78.5 - Hyperlipidemia, unspecified Vitamin D 25-OH Total Today E55.9 - Vitamin D deficiency, unspecified Microalbumin, Random (w Creat) Today E11.9 - Type 2 diabetes mellitus without complications XR foot LT 2V Today M79.672 - Pain in left foot AMB Hemoglobin A1c Today E11.9 - Type 2 diabetes mellitus without complications Medications: Changed From insulin glargine (Lantus Solostar U-100 Insulin) 35 units (0.35 mL) subcut QPM 90 days 31.5 mL 1RF E78.5 - Hyperlipidemia, unspecified To insulin glargine (Lantus Solostar U-100 Insulin) 40 units (0.4 mL) subcut QPM 90 days 36 mL 1RF E78.5 - Hyperlipidemia, unspecified Coding Level of Care Code Est Pt Level 4 (93081) Diagnoses DMII (diabetes mellitus, type 2) E11.21 Diabetes mellitus assisted insulin use: without assisted use Diabetes mellitus complication status: with kidney complications Diabetes mellitus complication detail: with nephropathy HTN (hypertension) I10 Hypertension type: essential hypertension Dyslipidemia E78.5 Left foot pain M79.672 Additional Codes DINESH-7 Assessment Billing - DINESH-7 Assessment Tool: DINESH-7 Assessment 82829 ([id number]) Time Spent (min) 24
== END 2023-03-12 12:13 | disposition home or self-care (01) ==
PROVIDERS: PCP Internal Medicine; Visit Provider Internal Medicine
DX: E11.21 Type 2 diabetes mellitus with diabetic nephropathy (principal); I10 Essential (primary) hypertension; E78.5 Hyperlipidemia, unspecified; M79.672 Pain in left foot
CPT/HCPCS: 83036; 99214

== ENCOUNTER 2023-03-12 12:21 | Outpatient (REF) | payer OTHER, SELFPAY ==
[2023-03-12 14:29] LABS: Alanine Aminotransferase 13 U/L (0-31); Albumin Level 4.3 g/dL (3.5-5.0); Alkaline Phosphatase 65 U/L (39-117); Anion Gap 15 (12-20); Aspartate Amino Transferase 20 U/L (5-31); Bilirubin Total 0.6 mg/dL (0.0-1.0); Blood Urea Nitrogen 22 mg/dL (9-16); Calcium 10.4 mg/dL (8.4-10.2); Carbon Dioxide 27 mmol/L (22-29); Chloride 106 mmol/L (96-108); Cholesterol 142 mg/dL; Estimated Glomerular Filt Rate 46; Glucose Fasting 104 mg/dL (60-99); HDL Cholesterol 61 mg/dL; LDL Cholesterol Calculated 63 mg/dl; Potassium 4.2 mmol/L (3.3-5.1); Sodium 144 mmol/L (135-145); Total Protein 8.1 g/dL (6.5-8.0); Triglycerides 91 mg/dL
[2023-03-12 14:33] LABS: Vitamin D 25-OH Total 104.8 ng/mL (>30)
[2023-03-12 14:37] LABS: Microalbum/Creatinine Ratio Ur 189.2 ug/mg cr
[2023-03-12 14:50] LABS: Vitamin B12 673 pg/mL (200-900)
== END 2023-03-12 12:22 | disposition home or self-care (01) ==
LOC: HO.LAB 12:21
PROVIDERS: PCP Internal Medicine; Visit Provider Internal Medicine
DX: E55.9 Vitamin D deficiency, unspecified (principal); E53.8 Deficiency of other specified B group vitamins; E11.9 Type 2 diabetes mellitus without complications; E78.5 Hyperlipidemia, unspecified
CPT/HCPCS: 36415; 80053; 80061; 82043; 82306; 82607; 82746

== ENCOUNTER 2023-05-20 09:26 | Outpatient (REF) | payer OTHER, SELFPAY ==
[2023-05-20 11:04] LABS: Albumin Level 3.9 g/dL (3.5-5.0)
[2023-05-21 17:58] LABS: Calcium (PTHI) 9.3 mg/dL (8.6-10.4); PTHI 57 pg/mL (16-77)
[2023-05-21 18:13] LABS: Calcium, Random Urine 2.8 mg/dL
[2023-05-22 16:17] LABS: Prot Elec - Albumin 3.7 g/dL (3.8-4.8); Prot Elec - Alpha1 0.3 g/dL (0.2-0.3); Prot Elec - Alpha2 0.9 g/dL (0.5-0.9); Prot Elec - Beta 1 0.5 g/dL (0.4-0.6); Prot Elec - Beta 2 0.5 g/dL (0.2-0.5); Prot Elec - Gamma 1.2 g/dL (0.8-1.7)
== END 2023-05-20 09:27 | disposition home or self-care (01) ==
LOC: HO.LAB 09:26
PROVIDERS: PCP Internal Medicine; Visit Provider Internal Medicine
DX: R77.8 Other specified abnormalities of plasma proteins (principal); E83.52 Hypercalcemia
CPT/HCPCS: 36415; 82040; 82310; 82330; 83970; 84165

== ENCOUNTER → 2023-06-16 14:30 | Outpatient (BNV) | payer OTHER, SELFPAY | PROVIDERS: PCP Internal Medicine; Visit Provider Radiology Diagnostic Radiology | DX: Z12.31 Encounter for screening mammogram for malignant neoplasm of breast (principal) | CPT/HCPCS: 77063; 77067 ==

== ENCOUNTER 2023-06-16 14:37 | Outpatient (REF) | payer OTHER, SELFPAY | END 2023-06-16 14:38 | disposition home or self-care (01) | LOC: HO.MAMMO 14:37 | PROVIDERS: PCP Internal Medicine; Visit Provider Internal Medicine | DX: Z12.31 Encounter for screening mammogram for malignant neoplasm of breast (principal) | CPT/HCPCS: 77063; 77067 ==

== ENCOUNTER 2023-10-14 13:24 | Outpatient (AMB) | payer OTHER, SELFPAY ==
--- NOTE | 2023-10-14 13:43 | MHC.PC.OV ---
Vital Signs 10/14/23 13:47 Height 5 ft 3 in Weight 192 lb BMI 34.0 BP 124/70 Blood Pressure Location Lt brachial Position Sitting Intake Visit Reasons: f/u Intake Note: Patient here follow up Dm, referral request Dr Jama Analytics Associate Required: No Accompanied by: Self / Same As Patient Allergies codeine [CODEINE] Allergy (Intermediate, Verified 10/14/23 14:05) RASH Seasonal Allergies Allergy (Mild, Verified 10/14/23 14:05) itchy eye Medication List - Last Reconciled 10/14/23 by Roxanne Glaser MD acetaminophen 1,000 mg (2 x 500 mg) PO Q6H PRN alcohol swabs (Alcohol Prep Pads) 1 pad topical BID 90 days amlodipine 5 mg PO DAILY 90 days blood sugar diagnostic (Accu-Chek Isabela Plus test strips) twice a day blood sugar diagnostic (OneTouch Ultra Test strips) USE 1 TO TEST BLOOD SUGAR THREE TIMES DAILY blood-glucose meter ([employer] of MarylandTouch Ultra2 Meter kit) As directed calcium polycarbophil (Fiber-Lax) 1,250 mg (2 x 625 mg) PO DAILY 90 days docusate sodium (Colace) 100 mg PO BID 30 days hydrochlorothiazide 12.5 mg PO DAILY 90 days hydroquinone 4% 1 appl topical DAILY 30 days insulin glargine (Lantus Solostar U-100 Insulin) 40 units (0.4 mL) subcut QPM 90 days lactulose 15 mL PO BEDTIME 30 days lancets (OneTouch UltraSoft Lancets) Use 1 lancet three times a day magnesium oxide 500 mg PO DAILY 90 days melatonin 3 mg PO BEDTIME PRN methylcellulose (laxative) (Fiber Laxative (methylcellulose)) 500 mg PO BID nystatin 1 appl topical DAILY 30 days pen needle, diabetic (1st Tier Unifine Pentips Plus) Use 1 pen needle once a day polyethylene glycol 3350 (Miralax) 17 grams PO DAILY rosuvastatin 40 mg PO DAILY 90 days vitamin E (dl, acetate) 90 mg PO DAILY 90 days Tobacco use date assessed: 10/14/23 Fall risk assessment: 1 Fall in past year Last assessed Fall Risk: 10/14/23 Dental Screening Dental Screen Date: 10/14/23 Did you have a dental visit in the last 12 months?: Yes Did you have a dental problem in the last 6 months where you did not have access to dental care?: No Was dental information given to patient?: Patient has dentist HPI HPI Comments History of Present Illness Details This is a 73-year-old female with hypertension, diabetes mellitus type 2 on long-term current use of insulin, dyslipidemia and chronic constipation that comes today for follow-up on her conditions. Blood pressure stable. A1c elevated and I will increase Lantus from 40 units to 45 Units once a day. Lipid panel was ordered. Constipation stable with medications. Has uterine prolapse and wants Dr. Jama from Urology to evaluate her. Has female cystocele and was referred to urogynecology by OBGYN but was not able to see them and I will refer her. [facility] Medical History Dyslipidemia Headache Obesity due to excess calories Insomnia Diabetic polyneuropathy associated with type 2 diabetes mellitus Diabetic nephropathy associated with type 2 diabetes mellitus Mild nonproliferative diabetic retinopathy associated with type 2 diabetes mellitus Gallstones Chronic constipation Abdominal pain Dyslipidemia Skin lesion Venous (peripheral) insufficiency Arthritis Diabetes GERD (gastroesophageal reflux disease) Hx of simple renal cyst Hx of renal calculi Asthma Angina pectoris Elevated cholesterol Surgical History History of right cataract surgery H/O colonoscopy History of varicose veins History of tubal ligation Family History Father Stroke Mother Cancer Brother Mental health disorder Social History Household Members: None Household Members Other:: Lives alone Housing: Apartment Alcohol intake: never Patient Tobacco Use Status: Former Tobacco user Tobacco use type: Cigarette e-Cigarette/Vaping Use: Never Used Second Hand Smoke Exposure: No service: No Current occupational status: disabled Cognitive needs: No Hearing needs: No Vision needs: Yes Female Reproductive History Menstrual Age of Menarche: 13 Questionnaire PHQ-9 Over the last 2 weeks, how often have you been bothered by any of the following problems? 1. Little interest or pleasure in doing things: not at all 2. Feeling down, depressed, or hopeless: more than half the days 3. Trouble falling or staying asleep, or sleeping too much: not at all 4. Feeling tired or having little energy: not at all 5. Poor appetite or overeating: not at all 6. Feeling bad about yourself - or that you are a failure or have let yourself or your family down: not at all 7. Trouble concentrating on things, such as reading the newspaper or watching television: not at all 8. Moving or speaking so slowly that other people could have noticed. Or the opposite - being so fidgety or restless that you have been moving around a lot more than usual: not at all 9. Thoughts that you would be better off or of hurting yourself in some way: not at all Total score: 2 Depression Screening Interpretation: Negative Depression Screening Done: Yes [id number] - PHQ-9 Billing: Yes Source: Developed by Drs. Cyril Mesa, Yvette Granados, Norberto Mcrae and colleagues, with an educational irene from [employer]. Thrive Questionnaire Date Thrive assessed: 10/14/23 I am a: Patient What is your living situation today?: I have a steady place to live Within the past 12 months, did the food you bought not last and you didn't have the money to get more?: Never true Within the past 12 months, did you worry whether your food would run out before you got money to buy more?: Never true Do you have trouble paying for medicines?: No Do you have trouble getting transportation to medical appointments?: No Do you have trouble paying your heating and electricity bill?: No Do you have trouble taking care of your child, family member or friend?: No Do you have trouble with day-to-day activities such as bathing, preparing meals, shopping, managing finances, etc.?: No Are you currently unemployed and looking for a job?: No Are you interested in more education?: No Please select the resources that you would like help with: None Currently or been in a relationship where the following occur: no concerns reported THRIVE Score: 0 AUDIT C Alcohol Use Questionnaire (AUDIT-C) 1. How often do you have a drink containing alcohol?: Never Total Score: 0 DINESH-7 AMB Questionnaire DINESH-7 Date DINESH - 7 assessed: 10/14/23 Feeling nervous, anxious, or on edge: 0 = Not at all Not being able to stop or control worryin = Not at all Worrying too much about different things: 0 = Not at all Trouble relaxin = Not at all Being so restless that it is hard to sit still: 0 = Not at all Becoming easily annoyed or irritable: 0 = Not at all Feeling afraid as if something awful might happen: 0 = Not at all Total DINESH-7 score (0-4 normal; 5-9 mild; 10-14 moderate; 15-21 severe): 0 Source: Developed by Drs. Cyril Mesa, Yvette Granados, Norberto Mcrae and colleagues, with an educational irene from [employer]. DINESH-7 Assessment Billing DINESH-7 Assessment Tool: DINESH-7 Assessment 66209 Review of Systems Const All systems reviewed & are unremarkable except as noted in HPI and below Eyes Reports no additional complaints, Denies change in vision and Denies other visual disturbances Card Denies chest pain at rest, Denies chest pain with activity, Denies edema, Denies irregular heart rhythm, Denies claudication, Denies dyspnea, Denies dyspnea on exertion, Denies orthopnea, Denies paroxysmal nocturnal dyspnea and Denies slow heart rate Resp Denies cough, Denies dyspnea and Denies dyspnea on exertion GI Denies abdominal pain, Denies change in bowel habits, Denies excessive flatus, Denies nausea and Denies vomiting Denies urinary incontinence, Denies urinary hesitancy and Denies urinary urgency Musc Denies abnormal gait, Denies atrophy, Denies deformity and Denies limited range of motion Skin/Breast Denies bleeding lesions, Denies changing lesions and Denies rash Neuro Denies abnormal gait and Denies lack of coordination Physical exam (Primary Care) Vital Signs: Last Vital Signs BP 124/70 10/14/23 13:47 BMI result Body Mass Index 34.0 Tobacco/Smoking Status: Tobacco use Status Tobacco use date assessed 10/14/23 10/14/23 13:57 Patient Tobacco Use Status Former Tobacco user 10/14/23 13:44 Tobacco use type Cigarette 10/14/23 13:44 e-Cigarette/Vaping Use Never Used 10/14/23 13:44 PHQ-9: PHQ-9 Score PHQ-9: Total score 2 10/14/23 13:57 Depression Screening Interpretation: Negative Thrive Assessment: Date of Thrive Assessment Date Thrive assessed 10/14/23 10/14/23 13:57 Currently or been in a relationship where the following occur: no concerns reported Eyes General: appearance normal, both eyes and all related structures Eyelids: Yes eyelids normal Conjunctivae: conjunctivae normal Neck Neck: Yes normal visual inspection and Yes supple Resp Effort & Inspection: normal respiratory effort Auscultation: clear to auscultation bilaterally Cardio Jugular venous distension: no JVD Rate: regular rate Rhythm: regular rhythm Heart sounds: S1 normal heart sound present and S2 normal heart sound present Extrem General: Yes full ROM Results AMB Hemoglobin A1c AMB Hemoglobin A1c 9.5 % Last Edit by CESIA Johnson on 10/14/23 13:59 Results Reviewed Results Reviewed: Laboratory Last Values Hgb A1c (Clinic) 9.5 % (4.0-6.0) H 10/14/23 13:42 Assessment and Plan Assessment & Plan (1) DMII (diabetes mellitus, type 2): Code(s): E11.9 - Type 2 diabetes mellitus without complications Qualifiers: Diabetes mellitus snf insulin use: without truck terminal manager use Diabetes mellitus complication status: with kidney complications Diabetes mellitus complication detail: with nephropathy Qualified Code(s): E11.21 - Type 2 diabetes mellitus with diabetic nephropathy Plan: Increase Lantus to 45 units once a day. A1c goal is equal or less than 7%. (2) HTN (hypertension): Code(s): I10 - Essential (primary) hypertension Qualifiers: Hypertension type: essential hypertension Qualified Code(s): I10 - Essential (primary) hypertension Plan: Continue amlodipine. Blood pressure goal is equal or less than 130/80. (3) Chronic constipation: Comment: A 70-year-old female diabetic, chronic constipation-following regimen miralax, dulcolax, high fiber diet, lactulose she alternates, she will continue Reviewed colonoscopy from 04/2018- with normal biopsy- no colon cancer-she will be due for [id number] Code(s): K59.09 - Other constipation Plan: Continue Colace as needed. (4) Dyslipidemia: Code(s): E78.5 - Hyperlipidemia, unspecified Plan: Continue statins. LDL goal is less than 70. Orders: Orders Lipid Panel Today E78.5 - Hyperlipidemia, unspecified Microalbumin, Random (w Creat) Today E11.9 - Type 2 diabetes mellitus without complications Comprehensive [place]. Panel Fast Today E11.9 - Type 2 diabetes mellitus without complications AMB Hemoglobin A1c Today E11.9 - Type 2 diabetes mellitus without complications Vitamin D 25-OH Total Today E55.9 - Vitamin D deficiency, unspecified Referrals Urogynecology Referral N81.10 - Cystocele, unspecified Urology Referral N81.2 - Incomplete uterovaginal prolapse, N81.4 - Uterovaginal prolapse, unspecified Medications: Changed From insulin glargine (Lantus Solostar U-100 Insulin) 40 units (0.4 mL) subcut QPM 90 days 36 mL 1RF E78.5 - Hyperlipidemia, unspecified To insulin glargine (Lantus Solostar U-100 Insulin) 50 units (0.5 mL) subcut QPM 90 days 45 mL 1RF E78.5 - Hyperlipidemia, unspecified Coding Level of Care Code Est Pt Level 4 (41495) Diagnoses Type 2 diabetes mellitus with diabetic nephropathy, without long-term current use of insulin E11.21 Diabetes mellitus snf insulin use: without truck terminal manager use Diabetes mellitus complication status: with kidney complications Diabetes mellitus complication detail: with nephropathy Essential hypertension I10 Hypertension type: essential hypertension Chronic constipation K59.09 Dyslipidemia E78.5 Additional Codes DINESH-7 Assessment Billing - DINESH-7 Assessment Tool: DINESH-7 Assessment 18497 ([id number]) Time Spent (min) 26
[2023-10-14 13:47] VITALS: BP 124/70; BMI 34.0
== END 2023-10-14 14:18 | disposition home or self-care (01) ==
PROVIDERS: PCP Internal Medicine; Visit Provider Internal Medicine
DX: E11.21 Type 2 diabetes mellitus with diabetic nephropathy (principal); I10 Essential (primary) hypertension; K59.09 Other constipation; E78.5 Hyperlipidemia, unspecified
CPT/HCPCS: 83036; 99214

== ENCOUNTER 2023-10-15 14:28 | Outpatient (AMB) | payer OTHER, SELFPAY ==
[2023-10-15 14:36] VITALS: BP 124/70; PULSE 62; O2SAT 97; BMI 34.3
--- NOTE | 2023-10-15 14:36 | HO.NEPHOV_ITS ---
HPI HPI Comments History of Present Illness Details 73-year-old female with hypertension, di abetes mellitus type 2 on long- term current use of insulin, dyslipidemia and mild proteinuric chronic kidney disease with several an echoic cysts on the left kidney was seen in follow-up. Her lower pole cyst measured 2.3 x 2.7 x 1.9 cm, upper pole cyst measuring 2.2 x 2.7 x 2.5cm and mid pole cyst measures 0.9 x 0.45 a 0.47 cm. Her blood pressure stable. A1c had been elevated and Lantus was increased from 40 units to 45 Units once a day. She has uterine prolapse and is going to see Dr. Jama from Urology. She has cystocele and was referred to urogynecology by OBGYN. Her renal functions have been stable. She denies chest pain, shortness of breath, paroxysmal nocturnal dyspnea, orthopnea, pedal edema, orthostatic symptoms. She does not take any excessive nonsteroidal anti-inflammatories. She tries to keep up with good hydration. Her renal functions have been stable. She has not on any JASWANT inhibitor or ARB or SGLT2 inhibitor. [facility] Medical History Dyslipidemia Headache Obesity due to excess calories Insomnia Diabetic polyneuropathy associated with type 2 diabetes mellitus Diabetic nephropathy associated with type 2 diabetes mellitus Mild nonproliferative diabetic retinopathy associated with type 2 diabetes mellitus Gallstones Chronic constipation Abdominal pain Dyslipidemia Skin lesion Venous (peripheral) insufficiency Arthritis Diabetes GERD (gastroesophageal reflux disease) Hx of simple renal cyst Hx of renal calculi Asthma Angina pectoris Elevated cholesterol Surgical History History of right cataract surgery H/O colonoscopy History of varicose veins History of tubal ligation Family History Father Stroke Mother Cancer Brother Mental health disorder Social History Household Members: None Household Members Other:: Lives alone Housing: Apartment Alcohol intake: never Patient Tobacco Use Status: Former Tobacco user Tobacco use type: Cigarette e-Cigarette/Vaping Use: Never Used Second Hand Smoke Exposure: No service: No Current occupational status: disabled Cognitive needs: No Hearing needs: No Vision needs: Yes Female Reproductive History Menstrual Age of Menarche: 13 Vital Signs 10/15/23 14:36 Height 5 ft 3 in Weight 193 lb 6 oz BMI 34.3 BP 124/70 Blood Pressure Location Rt brachial Position Sitting Pulse 62 Pulse Source Pulse Oximeter Pulse Oximetry (%) 97 Oxygen Delivery Method Room Air Physical Exam Vital Signs: Last Vital Signs Pulse 62 10/15/23 14:36 BP 124/70 10/15/23 14:36 Pulse Ox 97 10/15/23 14:36 Oxygen Delivery Method Room Air 10/15/23 14:36 BMI result Body Mass Index 34.3 Const General: comfortable and no acute distress Orientation/consciousness: patient oriented x3 HEENT Head: Yes normocephalic Mouth: Normal oral and palatal mucosa present Eyes EOM: EOMs intact bilaterally Neck Neck: Yes supple Resp Auscultation: clear to auscultation bilaterally Cardio Jugular venous distension: no JVD Rate: regular rate GI Palpation (GI): Soft to palpation Auscultation: normal bowel sounds General: Yes no CVA tenderness Back/Spine/Pelvis Back: no CVA tenderness Skin General skin exam: no rashes or lesions noted Neuro General: patient oriented x3 and moves all extremities Extrem General: Yes no pedal edema Assessment & Plan Assessment & Plan (1) Renal cyst: Code(s): N28.1 - Cyst of kidney, acquired (2) Diabetic nephropathy: Code(s): E11.21 - Type 2 diabetes mellitus with diabetic nephropathy Qualifiers: Diabetes mellitus type: type 2 Qualified Code(s): E11.21 - Type 2 diabetes mellitus with diabetic nephropathy (3) HTN (hypertension): Code(s): I10 - Essential (primary) hypertension Qualifiers: Hypertension type: essential hypertension Qualified Code(s): I10 - Essential (primary) hypertension (4) CKD (chronic kidney disease) stage 3, GFR 30-59 ml/min: Code(s): N18.30 - Chronic kidney disease, stage 3 unspecified Qualifiers: Chronic kidney disease stage 3 subtype: stage 3a (GFR 45-59) Qualified Code(s): N18.31 - Chronic kidney disease, stage 3a Arnulfo Graff has 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 She is proteinuria. She has not on any JASWANT inhibitor or ARB. Her blood sugar control has been suboptimal. She has a great candidate for SGLT2 inhibitor. I ordered imaging studies for follow-up. I will consider initiating her on JASWANT inhibitor or ARB. She avoids nonsteroidal anti-inflammatories and tries to maintain good hydration which I encouraged. She is going to follow-up with urology. I did not make any medication changes today. Follow-up lab work ordered. All questions answered. Follow-up appointment given. Orders: Orders Blood Urea Nitrogen 10/15/23 N18.30 - Chronic kidney disease, stage 3 unspecified, E11.21 - Type 2 diabetes mellitus with diabetic nephropathy, N28.1 - Cyst of kidney, acquired Creatinine 10/15/23 N18.30 - Chronic kidney disease, stage 3 unspecified, E11.21 - Type 2 diabetes mellitus with diabetic nephropathy, N28.1 - Cyst of kidney, acquired Calcium 10/15/23 N18.30 - Chronic kidney disease, stage 3 unspecified, E11.21 - Type 2 diabetes mellitus with diabetic nephropathy, N28.1 - Cyst of kidney, acquired US renal BI 10/15/23 N28.1 - Cyst of kidney, acquired Electrolytes 10/15/23 N18.30 - Chronic kidney disease, stage 3 unspecified, E11.21 - Type 2 diabetes mellitus with diabetic nephropathy, N28.1 - Cyst of kidney, acquired Protein Creatinine Ratio, Ur 10/15/23 N18.30 - Chronic kidney disease, stage 3 unspecified, E11.21 - Type 2 diabetes mellitus with diabetic nephropathy, N28.1 - Cyst of kidney, acquired Coding Level of Care Code Est Pt Level 3 (72022) Diagnoses Renal cyst N28.1 Diabetic nephropathy associated with type 2 diabetes mellitus E11.21 Diabetes mellitus type: type 2 Essential hypertension I10 Hypertension type: essential hypertension Stage 3a chronic kidney disease N18.31 Chronic kidney disease stage 3 subtype: stage 3a (GFR 45-59) Results Reviewed Nephrology Results: Sodium 144 mmol/L (135-145) 03/12/23 Potassium 4.2 mmol/L (3.3-5.1) 03/12/23 Chloride 106 mmol/L (96-108) 03/12/23 Carbon Dioxide 27 mmol/L (22-29) 03/12/23 BUN 22 mg/dL (9-16) H 03/12/23 Creatinine 1.17 mg/dL (0.5-1.4) 03/12/23 Calcium 10.4 mg/dL (8.4-10.2) H 03/12/23 PTH Intact 57 pg/mL (16-77) 05/20/23 Urine Creatinine 163.80 mg/dL 03/12/23
== END 2023-10-15 15:18 | disposition home or self-care (01) ==
PROVIDERS: PCP Internal Medicine; Visit Provider Internal Medicine Nephrology
DX: N28.1 Cyst of kidney, acquired (principal); E11.21 Type 2 diabetes mellitus with diabetic nephropathy; I10 Essential (primary) hypertension; N18.31 Chronic kidney disease, stage 3a
CPT/HCPCS: 99213

== ENCOUNTER → 2023-10-15 14:28 | Outpatient (BNVA) | payer OTHER, SELFPAY | PROVIDERS: PCP Internal Medicine; Visit Provider Internal Medicine Nephrology | DX: E11.22 Type 2 diabetes mellitus with diabetic chronic kidney disease (principal); I12.9 Hypertensive chronic kidney disease with stage 1 through stage 4 chronic kidney disease, or unspecified chronic kidney disease; N18.31 Chronic kidney disease, stage 3a; N28.1 Cyst of kidney, acquired; E11.21 Type 2 diabetes mellitus with diabetic nephropathy | CPT/HCPCS: 99212 ==

== ENCOUNTER 2023-11-12 14:27 | Outpatient (REF) | payer OTHER, SELFPAY ==
--- NOTE | ~2023-11-12 | US_ITS ---
EXAMINATION: US RETROPERITONEAL LIMITED (RENAL ONLY) CLINICAL INFORMATION: Cyst of kidneys. COMPARISON: Ultrasound abdomen complete 11/13/2020 TECHNIQUE: Routine grayscale imaging of kidneys is performed. FINDINGS: RIGHT KIDNEY: 10.6 x 4.9 x 5.0 cm (SAG x AP x TRV). The kidney is normal in size, contour, and echogenicity. Renal cortical thickness is normal. No calculi or focal parenchymal lesions. No hydronephrosis. LEFT KIDNEY: 11.2 x 4.7 x 3.8 cm (SAG x AP x TRV). The kidney is normal in size, contour, and echogenicity. Renal cortical thickness is normal. No calculi or focal parenchymal lesions. No hydronephrosis. There are multiple anechoic cysts. The largest cyst in lower pole measures 2.8 x 2.4 x 2.8 cm. US/US renal BI IMPRESSION: 1. Multiple left renal cysts. 2. The right kidney is unremarkable.
== END 2023-11-12 14:28 | disposition home or self-care (01) ==
LOC: HO.US 14:27
PROVIDERS: PCP Internal Medicine; Visit Provider Internal Medicine Nephrology
DX: N28.1 Cyst of kidney, acquired (principal)
CPT/HCPCS: 76775

== ENCOUNTER 2023-12-10 13:43 | Outpatient (AMB) | payer OTHER, SELFPAY ==
--- NOTE | 2023-12-10 13:44 | HO.NEPHOV_ITS ---
HPI HPI Comments History of Present Illness Details 73-year-old female with hypertension, di abetes mellitus type 2 on long- term current use of insulin, dyslipidemia and mild proteinuric chronic kidney disease with several an echoic cysts on the left kidney was seen in follow-up. She had repeat USS which showed left renal cysts. Her blood pressure stable. She is going to see Dr. Jama from Urology. She has cystocele and was referred to urogynecology by OBGYN. Her renal functions have been stable. She denies chest pain, shortness of breath, paroxysmal nocturnal dyspnea, orthopnea, pedal edema, orthostatic symptoms. She does not take any excessive nonsteroidal anti- inflammatories. She tries to keep up with good hydration. Her renal functions had been stable. She has not on any JASWANT inhibitor or ARB or SGLT2 inhibitor. [facility] Medical History Dyslipidemia Headache Obesity due to excess calories Insomnia Diabetic polyneuropathy associated with type 2 diabetes mellitus Diabetic nephropathy associated with type 2 diabetes mellitus Mild nonproliferative diabetic retinopathy associated with type 2 diabetes mellitus Gallstones Chronic constipation Abdominal pain Dyslipidemia Skin lesion Venous (peripheral) insufficiency Arthritis Diabetes GERD (gastroesophageal reflux disease) Hx of simple renal cyst Hx of renal calculi Asthma Angina pectoris Elevated cholesterol Surgical History History of right cataract surgery H/O colonoscopy History of varicose veins History of tubal ligation Family History Father Stroke Mother Cancer Brother Mental health disorder Social History Household Members: None Household Members Other:: Lives alone Housing: Apartment Alcohol intake: never Patient Tobacco Use Status: Former Tobacco user Tobacco use type: Cigarette e-Cigarette/Vaping Use: Never Used Second Hand Smoke Exposure: No service: No Current occupational status: disabled Cognitive needs: No Hearing needs: No Vision needs: Yes Female Reproductive History Menstrual Age of Menarche: 13 Vital Signs 12/10/23 13:45 Height 5 ft 3 in Weight 193 lb 8 oz BMI 34.3 BP 130/70 Blood Pressure Location Rt brachial Position Sitting Pulse 60 Pulse Source Pulse Oximeter Pulse Oximetry (%) 98 Oxygen Delivery Method Room Air Physical Exam Const General: comfortable and no acute distress Orientation/consciousness: patient oriented x3 HEENT Head: Yes normocephalic Mouth: Normal oral and palatal mucosa present Eyes EOM: EOMs intact bilaterally Neck Neck: Yes supple Resp Auscultation: clear to auscultation bilaterally Cardio Jugular venous distension: no JVD Rate: regular rate GI Palpation (GI): Soft to palpation Auscultation: normal bowel sounds General: Yes no CVA tenderness Back/Spine/Pelvis Back: no CVA tenderness Skin General skin exam: no rashes or lesions noted Neuro General: patient oriented x3 and moves all extremities Extrem General: Yes no pedal edema Assessment & Plan Assessment & Plan (1) CKD (chronic kidney disease) stage 3, GFR 30-59 ml/min: Code(s): N18.30 - Chronic kidney disease, stage 3 unspecified Qualifiers: Chronic kidney disease stage 3 subtype: stage 3a (GFR 45-59) Qualified Code(s): N18.31 - Chronic kidney disease, stage 3a (2) Diabetic nephropathy: Code(s): E11.21 - Type 2 diabetes mellitus with diabetic nephropathy Qualifiers: Diabetes mellitus type: type 2 Qualified Code(s): E11.21 - Type 2 diabetes mellitus with diabetic nephropathy (3) Renal cyst: Code(s): N28.1 - Cyst of kidney, acquired Plan 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 She is proteinuria. She has not on any JASWANT inhibitor or ARB. Her blood sugar control has been suboptimal. She has a great candidate for SGLT2 inhibito which I plan to start at next visit. I will consider initiating her on JASWANT inhibitor or ARB. She avoids nonsteroidal anti-inflammatories and tries to maintain good hydration which I encouraged. She is going to follow-up with urology. I did not make any medication changes today. Follow-up lab work ordered. All questions answered. Follow-up appointment given. Orders: Orders Blood Urea Nitrogen Today E11.21 - Type 2 diabetes mellitus with diabetic nephropathy, N18.31 - Chronic kidney disease, stage 3a, N28.1 - Cyst of kidney, acquired Protein Creatinine Ratio, Ur Today E11.21 - Type 2 diabetes mellitus with diabetic nephropathy, N18.31 - Chronic kidney disease, stage 3a, N28.1 - Cyst of kidney, acquired Hemoglobin A1c Today E11.21 - Type 2 diabetes mellitus with diabetic nephropathy, N18.31 - Chronic kidney disease, stage 3a, N28.1 - Cyst of kidney, acquired Creatinine Today E11.21 - Type 2 diabetes mellitus with diabetic nephropathy, N18.31 - Chronic kidney disease, stage 3a, N28.1 - Cyst of kidney, acquired Electrolytes Today E11.21 - Type 2 diabetes mellitus with diabetic nephropathy, N18.31 - Chronic kidney disease, stage 3a, N28.1 - Cyst of kidney, acquired Coding Level of Care Code Est Pt Level 4 (19280) Diagnoses Stage 3a chronic kidney disease N18.31 Chronic kidney disease stage 3 subtype: stage 3a (GFR 45-59) Diabetic nephropathy associated with type 2 diabetes mellitus E11.21 Diabetes mellitus type: type 2 Renal cyst N28.1 Results Reviewed Nephrology Results: Renal US 11/12/23
[2023-12-10 13:45] VITALS: BP 130/70; PULSE 60; O2SAT 98; BMI 34.3
== END 2023-12-10 14:18 | disposition home or self-care (01) ==
PROVIDERS: PCP Internal Medicine; Visit Provider Internal Medicine Nephrology
DX: N18.31 Chronic kidney disease, stage 3a (principal); E11.21 Type 2 diabetes mellitus with diabetic nephropathy; N28.1 Cyst of kidney, acquired
CPT/HCPCS: 99214

== ENCOUNTER → 2023-12-10 13:43 | Outpatient (BNVA) | payer OTHER, SELFPAY | PROVIDERS: PCP Internal Medicine; Visit Provider Internal Medicine Nephrology | DX: E11.22 Type 2 diabetes mellitus with diabetic chronic kidney disease (principal); N18.31 Chronic kidney disease, stage 3a; N28.1 Cyst of kidney, acquired; E11.21 Type 2 diabetes mellitus with diabetic nephropathy | CPT/HCPCS: 99212 ==

== ENCOUNTER 2024-04-26 08:34 | Outpatient (REF) | payer OTHER, SELFPAY ==
[2024-04-26 11:04] LABS: Estimated Average Glucose 229 mg/dL; Hemoglobin A1c % 9.6 % (<6.0)
[2024-04-26 11:11] LABS: Alanine Aminotransferase 14 U/L (0-31); Albumin Level 4.1 g/dL (3.5-5.0); Alkaline Phosphatase 62 U/L (39-117); Anion Gap 15 (12-20); Aspartate Amino Transferase 17 U/L (5-31); Bilirubin Total 0.3 mg/dL (0.0-1.0); Blood Urea Nitrogen 24 mg/dL (9-16); Carbon Dioxide 27 mmol/L (22-29); Chloride 104 mmol/L (96-108); Cholesterol 145 mg/dL (<200); Estimated Glomerular Filt Rate 49; Glucose Fasting 191 mg/dL (60-99); HDL Cholesterol 58 mg/dL (>40); LDL Cholesterol Calculated 66 mg/dL (<100); Potassium 4.5 mmol/L (3.3-5.1); Sodium 141 mmol/L (135-145); Total Protein 7.7 g/dL (6.5-8.0); Triglycerides 108 mg/dL (<150); Vitamin D 25-OH Total 41.4 ng/mL (>30)
[2024-04-26 11:20] LABS: Blood Urea Nitrogen 24 mg/dL (9-16); Calcium 10.1 mg/dL (8.4-10.2)
[2024-04-26 12:05] LABS: Creatinine Urine 112.27 mg/dL; Microalbum/Creatinine Ratio Ur 283.2 ug/mg cr (<30)
[2024-04-26 12:07] LABS: Creatinine Urine 111.85 mg/dL; Protein/Creatinine Ratio, Ur 0.51 (<0.2); Total Protein Urine Random 57 mg/dL (<12)
== END 2024-04-26 08:35 | disposition home or self-care (01) ==
LOC: HO.LAB 08:34
PROVIDERS: Internal Medicine Nephrology; PCP Internal Medicine; Visit Provider Internal Medicine
DX: N18.31 Chronic kidney disease, stage 3a (principal); E78.5 Hyperlipidemia, unspecified; E11.9 Type 2 diabetes mellitus without complications; E55.9 Vitamin D deficiency, unspecified; N18.30 Chronic kidney disease, stage 3 unspecified; E11.21 Type 2 diabetes mellitus with diabetic nephropathy; N28.1 Cyst of kidney, acquired
CPT/HCPCS: 36415; 80053; 80061; 82043; 82306; 82310; 82570; 83036; 84156; 84520

== ENCOUNTER 2024-04-27 13:36 | Outpatient (AMB) | payer OTHER, SELFPAY ==
--- NOTE | 2024-04-27 13:50 | A.OFFVIS_ITS ---
Vital Signs 04/27/24 13:59 Height 5 ft 3 in Weight 197 lb 8.547 oz BMI 35.0 BP 148/60 H Blood Pressure Location Rt brachial Position Sitting Pulse 60 Pulse Source Pulse Oximeter Intake Visit Reasons: DM/UNABLE TO LVM Intake Note: New Patient presents today to establish treatment for Type 2 Diabetes Mellitus: Last Diabetic eye exam was on: October 2023, Has an appointment 05/04/24. Last Podiatry exam was on: Does not see a [employer] Policy Specialist Most recent HbA1c: 9.6% 04/26/24 Random Glucose- 141 mg/dL, Today Dielectric Tester Required: Yes Dielectric Tester Language: Qc Analyst Services: Dielectric Tester Present Dielectric Tester Name: Tabitha [id number] Information Interpreted: non-clinical & clinical Accompanied by: Self / Same As Patient Allergies codeine [CODEINE] Allergy (Intermediate, Verified 04/27/24 13:59) RASH Seasonal Allergies Allergy (Mild, Verified 04/27/24 13:59) itchy eye Medication List - Last Reconciled 04/27/24 by KENDRICK Branch acetaminophen 1,000 mg (2 x 500 mg) PO Q6H PRN alcohol swabs (Alcohol Prep Pads) 1 pad topical BID 90 days amitriptyline 50 mg PO BEDTIME amlodipine 5 mg PO DAILY 90 days blood pressure test kit-medium As directed blood sugar diagnostic (OneTouch Ultra Test strips) USE 1 TO TEST BLOOD SUGAR THREE TIMES DAILY blood sugar diagnostic (Accu-Chek Isabela Plus test strips) twice a day blood-glucose meter (OneTouch Ultra2 Meter kit) As directed [id number] 50-325-40 mg 1 tab PO Q8H PRN calcium polycarbophil (Fiber-Lax) 1,250 mg (2 x 625 mg) PO DAILY 90 days docusate sodium (Colace) 100 mg PO BID 30 days hydrochlorothiazide 12.5 mg PO DAILY 90 days hydroquinone 4% 1 appl topical DAILY 30 days lactulose 15 mL PO BEDTIME 90 days lancets Use 1 lancet three times a day magnesium oxide 500 mg PO DAILY 90 days melatonin 3 mg PO BEDTIME PRN methylcellulose (laxative) (Fiber Laxative (methylcellulose)) 500 mg PO BID multivitamin 1 tab PO DAILY nystatin 1 appl topical DAILY 30 days pen needle, diabetic (1st Tier Unifine Pentips Plus) Use 1 pen needle once a day polyethylene glycol 3350 (Miralax) 17 grams PO DAILY rosuvastatin 40 mg PO DAILY 90 days vitamin E (dl, acetate) 90 mg PO DAILY 90 days HPI Comments Details: This is a 74-year-old female with a past medical history of CKD stage 3, NAFLD, type 2 diabetes, obesity, dyslipidemia and hypertension presenting for diabetic management. She was last seen in the endocrinology department on 07/23/2021. The patient was focused on several issues not pertaining to endocrinology today. She requested a referral to vascular surgery for varicose veins. Requested referral to hand surgeon for locking of her fingers on her left hand in the morning. Patient says she has also tried getting in touch with her PCP office for referral to Urogynecology at [facility] for uterine prolapse. I placed the referrals as a courtesy to the patient today. She did not bring her glucomeer to the visit. I was not told to bring it. Hemoglobin a1c 9.6% 04/26/2024. POC 141. Patient says her glucose reading are varying a lot. The highest are in the low 300s. Denies glucose <70. Trends higher in the afternoon and evening Current medication regimen: Lantus 50 mg. Will not take Metformin due to concerns about side effects. The patient wants to discuss changing her Lantus because she does not feel like it does anything. She wants Actos. Hypoglycemia symptoms: none Hyperglycemia symptoms: body aches, dizzy, thirsty and weak Eye exam: NE Retina with Dr. Jarrett. Microvascular complications: neuropathy, nephropathy (CKD stage 3, microalbum in), retinopathy. Patient followed by Nephrology for diabetic nephropathy. Macrovascular complications: none Hypertension: treated with amlodipine 5 mg, hydrochlorothiazide 12.5 mg Hyperlipidemia: treated with rosuvastatin 40 mg. LDL at goal <100. ROS: Constitutional: No unexplained weight loss, fever, chills, fatigue or night sweats. Eyes: No vision changes, blurry vision, double vision, eye pain Respiratory: No shortness of breath Cardiovascular: No chest pain, chest pressure or chest discomfort. No palpitations or pedal edema. Gastrointestinal: No anorexia, nausea, vomiting or diarrhea. No abdominal pain Genitourinary: No dysuria, hematuria, urinary frequency. Neurologic: No headache, dizziness, syncope, unilateral weakness, ataxia Skin: No rash or open wounds Endocrine: see HPI Physical exam: Constitutional: Alert, in no distress. Eyes: Pupils are equal, round and reactive to light. Extraocular muscles intact. Neck: Supple, Full range of motion. No lymphadenopathy. No palpable thyroid masses or thyromegaly. Respiratory: Clear to auscultation. Cardiovascular: S1 S2 regular. No murmurs Neurologic: No focal neurological deficits. Extremities: Warm and well perfused. No edema. Bilateral varicose veins noted of the lower extremities. Psychiatric: Cooperative though slightly agitated Right foot: Warm and well perfused. No clubbing, cyanosis or edema. DP pulse 2+. Decreased vibratory sensation. Intact sensation to monofilament. Left foot: Warm and well perfused. No clubbing, cyanosis or edema. DP pulse 2+. Decreased vibratory sensation. Intact sensation to monofilament. [facility] Medical History (Updated 04/27/24 @ 16:45 by KENDRICK Branch) Uncontrolled type 2 diabetes mellitus with hyperglycemia, with long-term current use of insulin Dyslipidemia Headache Obesity due to excess calories Insomnia Diabetic polyneuropathy associated with type 2 diabetes mellitus Diabetic nephropathy associated with type 2 diabetes mellitus Mild nonproliferative diabetic retinopathy associated with type 2 diabetes mellitus Gallstones Chronic constipation Abdominal pain Dyslipidemia Skin lesion Venous (peripheral) insufficiency Arthritis Diabetes GERD (gastroesophageal reflux disease) Hx of simple renal cyst Hx of renal calculi Asthma Angina pectoris Elevated cholesterol Surgical History History of right cataract surgery H/O colonoscopy History of varicose veins History of tubal ligation Family History Father Stroke Mother Cancer Brother Mental health disorder Social History Household Members: None Household Members Other:: Lives alone Housing: Apartment Alcohol intake: never Patient Tobacco Use Status: Former Tobacco user Tobacco use type: Cigarette e-Cigarette/Vaping Use: Never Used Second Hand Smoke Exposure: No service: No Current occupational status: disabled Cognitive needs: No Hearing needs: No Vision needs: Yes Female Reproductive History Menstrual Age of Menarche: 13 Physical Exam Vital Signs: Last Vital Signs Pulse 60 04/27/24 13:59 BP 148/60 H 04/27/24 13:59 BMI result Body Mass Index 35.0 Results Reviewed Results Reviewed: Laboratory Last Values Glucose (Clinic) 141 mg/dL (60-115) H 04/27/24 14:11 Laboratory Tests 04/26/24 04/26/24 08:56 09:00 Creatinine 1.10 Estimated GFR 49 Hemoglobin A1c % 9.6 H Triglycerides 108 Cholesterol 145 LDL Cholesterol, Calc 66 HDL Cholesterol 58 U Random Total Protein 57 H Microalb/Creat Ratio 283.2 H Protein/Creatinin Ratio 0.51 H Laboratory Tests 03/12/23 10/14/23 11:49 13:42 Hgb A1c (Clinic) 8.5 H 9.5 H Assessment & Plan Assessment & Plan (1) Uncontrolled type 2 diabetes mellitus with hyperglycemia, with long-term current use of insulin: Code(s): E11.65 - Type 2 diabetes mellitus with hyperglycemia; Z79.4 - 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 Patient is reporting glucose as high as 300s despite Lantus, and the patient does not want to increase insulin further due to her difficulty losing weight. Will switch to Tresiba 50 units nightly. I do not think Actos is the most appropriate oral medication for her. Explained this has been associated with bladder cancer and heart failure as well as weight gain and fluid retention. She is a good candidate for SGLT2. We discussed side effects including RADHA that can require hospitalization, genitourinary infections (she denies history of this). I will plan to touch base with her numerical control operator and send Jardiance to her pharmacy and have patient repeat creatinine 10 days after starting the medication. Patient's blood pressure is suboptimal in the office today, but she does appear a little emotionally charged and agitated speaking about some of her other medical issues. We can recheck this at her follow-up visit and review indication for JASWANT-inhibitor or ARB at that time. Follow-up in 8-10 weeks for diabetes. Orders: Referrals Urogynecology Referral N81.2 - Incomplete uterovaginal prolapse Hand Surgery Referral M24.849 - Other specific joint derangements of unspecified hand, not elsewhere classified Vascular Surgery Referral I83.90 - Asymptomatic varicose veins of unspecified lower extremity Medications: New insulin degludec (Tresiba FlexTouch U-100 insulin) Replaces Lantus. 50 units (0.5 mL) subcut BEDTIME 15 mL 5RF Discontinued insulin glargine (Lantus Solostar U-100 Insulin) Discontinued Reason: Doctor's Order 50 units subcut QPM E78.5 - Hyperlipidemia, unspecified Coding Level of Care Code Est Pt Level 5 (97310) Complex EM visit Add On G2211 Diagnoses Uncontrolled type 2 diabetes mellitus with hyperglycemia, with long-term current use of insulin E11.65; Z79.4 Time Spent (min) 50 Comment Reviewing specialist notes/chart/labs, direct patient care, completing documentation
[2024-04-27 13:59] VITALS: BP 148/60; PULSE 60; BMI 35.0
[2024-04-27 14:15] LABS: Glucose, Whole Blood 141 mg/dL (60-115)
== END 2024-04-27 14:53 | disposition home or self-care (01) ==
PROVIDERS: PCP Internal Medicine; Visit Provider Physician Assistant Medical
DX: E11.65 Type 2 diabetes mellitus with hyperglycemia (principal); Z79.4 Long term (current) use of insulin
CPT/HCPCS: 99215; G2211

== ENCOUNTER → 2024-04-27 13:36 | Outpatient (BNVA) | payer OTHER, SELFPAY | PROVIDERS: PCP Internal Medicine; Visit Provider Physician Assistant Medical | DX: E11.65 Type 2 diabetes mellitus with hyperglycemia (principal); Z79.4 Long term (current) use of insulin | CPT/HCPCS: 82947; 99212 ==

== ENCOUNTER 2024-04-29 13:28 | Outpatient (AMB) | payer OTHER, SELFPAY ==
--- NOTE | 2024-04-29 13:37 | MHC.PC.OV ---
Vital Signs 04/29/24 13:38 Height 5 ft 3 in Weight 194 lb 6 oz BMI 34.4 BP 136/70 Blood Pressure Location Lt brachial Position Sitting Intake Visit Reasons: dm - see comments Intake Note: Patient here for a follow up DM Community Representative Required: No Accompanied by: Self / Same As Patient Allergies codeine [CODEINE] Allergy (Intermediate, Verified 04/29/24 13:53) RASH Seasonal Allergies Allergy (Mild, Verified 04/29/24 13:53) itchy eye Medication List - Last Reconciled 04/29/24 by Roxanne Glaser MD acetaminophen 1,000 mg (2 x 500 mg) PO Q6H PRN alcohol swabs (Alcohol Prep Pads) 1 pad topical BID 90 days amitriptyline 50 mg PO BEDTIME amlodipine 5 mg PO DAILY 90 days blood pressure test kit-medium As directed blood sugar diagnostic (SweetgreenTouch Ultra Test strips) USE 1 TO TEST BLOOD SUGAR THREE TIMES DAILY blood sugar diagnostic (Accu-Chek Isabela Plus test strips) twice a day blood-glucose meter ([employer] Ultra2 Meter kit) As directed [id number]-[id number] 50-325-40 mg 1 tab PO Q8H PRN calcium polycarbophil (Fiber-Lax) 1,250 mg (2 x 625 mg) PO DAILY 90 days docusate sodium (Colace) 100 mg PO BID 30 days empagliflozin (Jardiance) 10 mg PO QAM hydrochlorothiazide 12.5 mg PO DAILY 90 days hydroquinone 4% 1 appl topical DAILY 30 days insulin degludec (Tresiba FlexTouch U-100 insulin) 50 units (0.5 mL) subcut BEDTIME lactulose 15 mL PO BEDTIME 90 days lancets Use 1 lancet three times a day magnesium oxide 500 mg PO DAILY 90 days melatonin 3 mg PO BEDTIME PRN methylcellulose (laxative) (Fiber Laxative (methylcellulose)) 500 mg PO BID multivitamin 1 tab PO DAILY nystatin 1 appl topical DAILY 30 days pen needle, diabetic (1st Tier Unifine Pentips Plus) Use 1 pen needle once a day polyethylene glycol 3350 (Miralax) 17 grams PO DAILY rosuvastatin 40 mg PO DAILY 90 days vitamin E (dl, acetate) 90 mg PO DAILY 90 days Tobacco use date assessed: 10/14/23 Fall risk assessment: No Falls in past year Last assessed Fall Risk: 04/29/24 Dental Screening Dental Screen Date: 10/14/23 HPI HPI Comments History of Present Illness Details This is a 74-year-old female with diabetes mellitus type 2 with hyperglycemia on long-term current use of insulin, hypertension, dyslipidemia and chronic kidney disease stage 3 that comes today for follow-up on her conditions. A1c elevated and I will increase Jardiance. Blood pressure stable. LDL within goal. Has GFR of 49 and does have microalbuminuria which is follow by Nephrology. Patient aware she has to avoid NSAIDs. Denies any chest pain or shortness on breath. [facility] Medical History (Updated 04/30/24 @ 09:36 by Roxanne Glaser MD) Cerebral venous infarction, chronic Uncontrolled type 2 diabetes mellitus with hyperglycemia, with long-term current use of insulin Dyslipidemia Headache Obesity due to excess calories Insomnia Diabetic polyneuropathy associated with type 2 diabetes mellitus Diabetic nephropathy associated with type 2 diabetes mellitus Mild nonproliferative diabetic retinopathy associated with type 2 diabetes mellitus Gallstones Chronic constipation Abdominal pain Dyslipidemia Skin lesion Venous (peripheral) insufficiency Arthritis Diabetes GERD (gastroesophageal reflux disease) Hx of simple renal cyst Hx of renal calculi Asthma Angina pectoris Elevated cholesterol Surgical History History of right cataract surgery H/O colonoscopy History of varicose veins History of tubal ligation Family History Father Stroke Mother Cancer Brother Mental health disorder Social History Household Members: None Household Members Other:: Lives alone Housing: Apartment Alcohol intake: never Patient Tobacco Use Status: Former Tobacco user Tobacco use type: Cigarette e-Cigarette/Vaping Use: Never Used Second Hand Smoke Exposure: No service: No Current occupational status: disabled Cognitive needs: No Hearing needs: No Vision needs: Yes Female Reproductive History Menstrual Age of Menarche: 13 Questionnaire Thrive Questionnaire Date Thrive assessed: 10/14/23 DINESH-7 AMB Questionnaire DINESH-7 Date DINESH - 7 assessed: 10/14/23 Source: Developed by Drs. Cyril Mesa, Yvette Granados, Norberto Mcrae and colleagues, with an educational irene from [employer] Review of Systems Const All systems reviewed & are unremarkable except as noted in HPI and below Card Denies chest pain at rest, Denies chest pain with activity, Denies edema, Denies irregular heart rhythm, Denies claudication, Denies dyspnea, Denies dyspnea on exertion, Denies orthopnea, Denies paroxysmal nocturnal dyspnea and Denies slow heart rate Resp Denies cough, Denies dyspnea and Denies dyspnea on exertion GI Denies abdominal pain, Denies change in bowel habits, Denies excessive flatus, Denies nausea and Denies vomiting Denies urinary incontinence, Denies urinary hesitancy and Denies urinary urgency Musc Denies atrophy, Denies deformity and Denies limited range of motion Skin/Breast Denies bleeding lesions, Denies changing lesions and Denies rash Physical exam (Primary Care) Vital Signs: Last Vital Signs BP 136/70 04/29/24 13:38 BMI result Body Mass Index 34.4 Tobacco/Smoking Status: Tobacco use Status Tobacco use date assessed 10/14/23 04/29/24 13:38 Patient Tobacco Use Status Former Tobacco user 04/29/24 13:38 Tobacco use type Cigarette 04/29/24 13:38 e-Cigarette/Vaping Use Never Used 04/29/24 13:38 Thrive Assessment: Date of Thrive Assessment Date Thrive assessed 10/14/23 04/29/24 13:38 Resp Effort & Inspection: normal respiratory effort Auscultation: clear to auscultation bilaterally Cardio Jugular venous distension: no JVD Rate: regular rate Rhythm: regular rhythm Heart sounds: S1 normal heart sound present and S2 normal heart sound present Extrem General: Yes full ROM Assessment and Plan Assessment & Plan (1) Uncontrolled type 2 diabetes mellitus with hyperglycemia, with long-term current use of insulin: Code(s): E11.65 - Type 2 diabetes mellitus with hyperglycemia; Z79.4 - alf (current) use of insulin Plan: Continue insulin. Increase Jardiance. A1c goal is equal or less than 7%. (2) CKD (chronic kidney disease) stage 3, GFR 30-59 ml/min: Code(s): N18.30 - Chronic kidney disease, stage 3 unspecified Qualifiers: Chronic kidney disease stage 3 subtype: stage 3a (GFR 45-59) Qualified Code(s): N18.31 - Chronic kidney disease, stage 3a Plan: Avoid NSAIDs. Keep blood pressure within goal. (3) Dyslipidemia: Code(s): E78.5 - Hyperlipidemia, unspecified Plan: Continue statins. LDL goal is less than 70. (4) HTN (hypertension): Code(s): I10 - Essential (primary) hypertension Qualifiers: Hypertension type: essential hypertension Qualified Code(s): I10 - Essential (primary) hypertension Plan: Continue amlodipine and hydrochlorothiazide. Blood pressure goal is equal or less than 130/80. Orders: Orders Microalbumin, Random (w Creat) 4 Months E11.9 - Type 2 diabetes mellitus without complications Lipid Panel 4 Months E78.5 - Hyperlipidemia, unspecified Vitamin D 25-OH Total 4 Months E55.9 - Vitamin D deficiency, unspecified Comprehensive [place]. Panel Fast 4 Months E11.65 - Type 2 diabetes mellitus with hyperglycemia, Z79.4 - alf (current) use of insulin XR DEXA axial skeleton 04/29/24 N95.9 - Unspecified menopausal and perimenopausal disorder Medications: New empagliflozin (Jardiance) 25 mg PO DAILY 90 tabs 1RF 90 days Refilled magnesium oxide 500 mg PO DAILY 90 caps 3RF 90 days Discontinued empagliflozin (Jardiance) Discontinued Reason: Patient Completed Course 10 mg PO QAM 30 tabs 1RF Coding Level of Care Code Est Pt Level 4 (29937) Complex EM visit Add On G2211 Diagnoses Uncontrolled type 2 diabetes mellitus with hyperglycemia, with long-term current use of insulin E11.65; Z79.4 Stage 3a chronic kidney disease N18.31 Chronic kidney disease stage 3 subtype: stage 3a (GFR 45-59) Dyslipidemia E78.5 Essential hypertension I10 Hypertension type: essential hypertension Time Spent (min) 23
[2024-04-29 13:38] VITALS: BP 136/70; BMI 34.4
== END 2024-04-29 14:13 | disposition home or self-care (01) ==
PROVIDERS: PCP Internal Medicine; Visit Provider Internal Medicine
DX: I12.9 Hypertensive chronic kidney disease with stage 1 through stage 4 chronic kidney disease, or unspecified chronic kidney disease (principal); E11.65 Type 2 diabetes mellitus with hyperglycemia; Z79.4 Long term (current) use of insulin; N18.31 Chronic kidney disease, stage 3a; E78.5 Hyperlipidemia, unspecified
CPT/HCPCS: 99214; G2211

== ENCOUNTER 2024-05-10 10:27 | Outpatient (AMB) | payer OTHER, SELFPAY ==
--- NOTE | 2024-05-10 10:16 | HO.NEPHOV ---
Intake Visit Reasons: CKD/ 4 MO FU- LVM Allergies codeine [CODEINE] Allergy (Intermediate, Verified 04/29/24 13:53) RASH Seasonal Allergies Allergy (Mild, Verified 04/29/24 13:53) itchy eye PFSH Medical History (Updated 04/30/24 @ 09:36 by Roxanne Glaser MD) Cerebral venous infarction, chronic Uncontrolled type 2 diabetes mellitus with hyperglycemia, with long-term current use of insulin Dyslipidemia Headache Obesity due to excess calories Insomnia Diabetic polyneuropathy associated with type 2 diabetes mellitus Diabetic nephropathy associated with type 2 diabetes mellitus Mild nonproliferative diabetic retinopathy associated with type 2 diabetes mellitus Gallstones Chronic constipation Abdominal pain Dyslipidemia Skin lesion Venous (peripheral) insufficiency Arthritis Diabetes GERD (gastroesophageal reflux disease) Hx of simple renal cyst Hx of renal calculi Asthma Angina pectoris Elevated cholesterol Surgical History History of right cataract surgery H/O colonoscopy History of varicose veins History of tubal ligation Family History Father Stroke Mother Cancer Brother Mental health disorder Social History Household Members: None Household Members Other:: Lives alone Housing: Apartment Alcohol intake: never Patient Tobacco Use Status: Former Tobacco user Tobacco use type: Cigarette e-Cigarette/Vaping Use: Never Used Second Hand Smoke Exposure: No service: No Current occupational status: disabled Cognitive needs: No Hearing needs: No Vision needs: Yes Female Reproductive History Menstrual Age of Menarche: 13 Results Reviewed Nephrology Results: Sodium 141 mmol/L (135-145) 04/26/24 Potassium 4.5 mmol/L (3.3-5.1) 04/26/24 Chloride 104 mmol/L (96-108) 04/26/24 Carbon Dioxide 27 mmol/L (22-29) 04/26/24 BUN 24 mg/dL (9-16) H 04/26/24 Creatinine 1.10 mg/dL (0.5-1.4) 04/26/24 Calcium 10.1 mg/dL (8.4-10.2) 04/26/24 Urine Creatinine 111.85 mg/dL 08/26/24 Protein/Creatinin Ratio 0.51 (<0.2) H 04/26/24 Renal US 11/12/23 Coding
--- NOTE | 2024-05-10 10:42 | HO.NEPHOV_ITS ---
Vital Signs 05/10/24 10:43 Height 5 ft 3 in Weight 196 lb 6 oz BMI 34.8 BP 164/70 H Blood Pressure Location Lt brachial Position Sitting Pulse 70 Pulse Source Pulse Oximeter Pulse Oximetry (%) 99 Oxygen Delivery Method Room Air Intake Visit Reasons: CKD/ 4 MO FU- LVM Universal Grinder Set Up Operator Required: Yes Universal Grinder Set Up Operator Name: Arlene [id number] Accompanied by: Self / Same As Patient Allergies codeine [CODEINE] Allergy (Intermediate, Verified 05/10/24 10:45) RASH Seasonal Allergies Allergy (Mild, Verified 05/10/24 10:45) itchy eye HPI Comments Details: 73-year-old female with hypertension, diabetes mellitus type 2 on long-term current use of insulin, dyslipidemia and mild proteinuric chronic kidney disease with several an echoic cysts on the left kidney was seen in follow-up. She had repeat USS which showed left renal cysts. Her blood pressure stable. She is going to see Dr. Jama from Urology. Her renal functions have been stable. She denies chest pain, shortness of breath, paroxysmal nocturnal dyspnea, orthopnea, pedal edema, orthostatic symptoms. She does not take any excessive nonsteroidal anti-inflammatories. She tries to keep up with good hydration. Her renal functions had been stable. She has not on any JASWANT inhibitor or ARB or SGLT2 inhibitor [facility] Medical History (Updated 04/30/24 @ 09:36 by Roxanne Glaser MD) Cerebral venous infarction, chronic Uncontrolled type 2 diabetes mellitus with hyperglycemia, with long-term current use of insulin Dyslipidemia Headache Obesity due to excess calories Insomnia Diabetic polyneuropathy associated with type 2 diabetes mellitus Diabetic nephropathy associated with type 2 diabetes mellitus Mild nonproliferative diabetic retinopathy associated with type 2 diabetes mellitus Gallstones Chronic constipation Abdominal pain Dyslipidemia Skin lesion Venous (peripheral) insufficiency Arthritis Diabetes GERD (gastroesophageal reflux disease) Hx of simple renal cyst Hx of renal calculi Asthma Angina pectoris Elevated cholesterol Surgical History History of right cataract surgery H/O colonoscopy History of varicose veins History of tubal ligation Family History Father Stroke Mother Cancer Brother Mental health disorder Social History Household Members: None Household Members Other:: Lives alone Housing: Apartment Alcohol intake: never Patient Tobacco Use Status: Former Tobacco user Tobacco use type: Cigarette e-Cigarette/Vaping Use: Never Used Second Hand Smoke Exposure: No service: No Current occupational status: disabled Cognitive needs: No Hearing needs: No Vision needs: Yes Female Reproductive History Menstrual Age of Menarche: 13 Review of Systems Const All systems reviewed & are unremarkable except as noted in HPI and below Physical Exam Vital Signs: Last Vital Signs Pulse 70 05/10/24 10:43 BP 164/70 H 05/10/24 10:43 Pulse Ox 99 05/10/24 10:43 Oxygen Delivery Method Room Air 05/10/24 10:43 BMI result Body Mass Index 34.8 Const General: comfortable and no acute distress Orientation/consciousness: patient oriented x3 HEENT Head: Yes normocephalic Mouth: Normal oral and palatal mucosa present Eyes EOM: EOMs intact bilaterally Neck Neck: Yes supple Resp Auscultation: clear to auscultation bilaterally Cardio Jugular venous distension: no JVD Rate: regular rate GI Palpation (GI): Soft to palpation Auscultation: normal bowel sounds General: Yes no CVA tenderness Back/Spine/Pelvis Back: no CVA tenderness Skin General skin exam: no rashes or lesions noted Neuro General: patient oriented x3 and moves all extremities Extrem General: Yes no pedal edema Results Reviewed Nephrology Results: Sodium 141 mmol/L (135-145) 04/26/24 Potassium 4.5 mmol/L (3.3-5.1) 04/26/24 Chloride 104 mmol/L (96-108) 04/26/24 Carbon Dioxide 27 mmol/L (22-29) 04/26/24 BUN 24 mg/dL (9-16) H 04/26/24 Creatinine 1.10 mg/dL (0.5-1.4) 04/26/24 Calcium 10.1 mg/dL (8.4-10.2) 04/26/24 Urine Creatinine 111.85 mg/dL 04/26/24 Protein/Creatinin Ratio 0.51 (<0.2) H 04/26/24 Renal US 11/12/23 Assessment & Plan Assessment & Plan (1) CKD (chronic kidney disease) stage 3, GFR 30-59 ml/min: Code(s): N18.30 - Chronic kidney disease, stage 3 unspecified Category: Medical Qualifiers: Chronic kidney disease stage 3 subtype: stage 3a (GFR 45-59) Qualified Code(s): N18.31 - Chronic kidney disease, stage 3a (2) Renal cyst: Code(s): N28.1 - Cyst of kidney, acquired Category: Medical (3) HTN (hypertension): Code(s): I10 - Essential (primary) hypertension Category: Medical Qualifiers: Hypertension type: essential hypertension Qualified Code(s): I10 - Essential (primary) hypertension Plan 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 She has proteinuria. She has not on any JASWANT inhibitor or ARB. I discussed about initiating on it but she wanted to wait. Her blood sugar control is better after initiating Jardiance. She avoids nonsteroidal anti-inflammatories and tries to maintain good hydration which I encouraged. She is going to follow-up with urology. I did not make any medication changes today. Follow-up lab work ordered. Shall repeat imaging studies next year. All questions answered. Follow-up appointment given Orders: Orders Creatinine Today N18.31 - Chronic kidney disease, stage 3a Blood Urea Nitrogen Today N18.31 - Chronic kidney disease, stage 3a Electrolytes Today N18.31 - Chronic kidney disease, stage 3a Calcium Today N18.31 - Chronic kidney disease, stage 3a Coding Level of Care Code Est Pt Level 4 (25848) Diagnoses Stage 3a chronic kidney disease N18.31 Chronic kidney disease stage 3 subtype: stage 3a (GFR 45-59) Renal cyst N28.1 Essential hypertension I10 Hypertension type: essential hypertension
[2024-05-10 10:43] VITALS: BP 164/70; PULSE 70; O2SAT 99; BMI 34.8
== END 2024-05-10 11:18 | disposition home or self-care (01) ==
PROVIDERS: PCP Internal Medicine; Visit Provider Internal Medicine Nephrology
DX: N18.31 Chronic kidney disease, stage 3a (principal); N28.1 Cyst of kidney, acquired; I10 Essential (primary) hypertension
CPT/HCPCS: 99214

== ENCOUNTER → 2024-05-10 10:27 | Outpatient (BNVA) | payer OTHER, SELFPAY | PROVIDERS: PCP Internal Medicine; Visit Provider Internal Medicine Nephrology | DX: I12.9 Hypertensive chronic kidney disease with stage 1 through stage 4 chronic kidney disease, or unspecified chronic kidney disease (principal); N18.31 Chronic kidney disease, stage 3a; N28.1 Cyst of kidney, acquired | CPT/HCPCS: 99212 ==

== ENCOUNTER 2024-05-12 14:30 | Outpatient (AMB) | payer OTHER, SELFPAY ==
--- NOTE | 2024-05-12 14:44 | A.OFFVIS_ITS ---
Intake Visit Reasons: Incomplete uterovaginal prolapse Intake Note: New patient is present for Incompleted Uterovaginal Prolapse Was referred by her INVESTIGATIVE SHOPPER Current A1C: 9.6 04/26/24 Renal U/S Completed on 10/2023 Patient is currently on Jardiance Leather Softener Required: Yes Leather Softener Language: Resource Recovery Engineer Services: Leather Softener Present Information Interpreted: clinical only Accompanied by: Self / Same As Patient Allergies codeine [CODEINE] Allergy (Intermediate, Verified 05/12/24 14:45) RASH Seasonal Allergies Allergy (Mild, Verified 05/12/24 14:45) itchy eye Medication List - Last Reconciled 05/12/24 by Javy Jama MD acetaminophen 1,000 mg (2 x 500 mg) PO Q6H PRN alcohol swabs (Alcohol Prep Pads) 1 pad topical BID 90 days amitriptyline 50 mg PO BEDTIME amlodipine 5 mg PO DAILY 90 days blood pressure test kit-medium As directed blood sugar diagnostic (OneTouch Ultra Test strips) USE 1 TO TEST BLOOD SUGAR THREE TIMES DAILY blood sugar diagnostic (Accu-Chek Isabela Plus test strips) twice a day blood-glucose meter ([employer] Ultra2 Meter kit) As directed [id number]-geyzjmxylbnki-dusl 50-325-40 mg 1 tab PO Q8H PRN calcium polycarbophil (Fiber-Lax) 1,250 mg (2 x 625 mg) PO DAILY 90 days docusate sodium (Colace) 100 mg PO BID 30 days empagliflozin (Jardiance) 25 mg PO DAILY 90 days hydrochlorothiazide 12.5 mg PO DAILY 90 days hydroquinone 4% 1 appl topical DAILY 30 days insulin degludec (Tresiba FlexTouch U-100 insulin) 50 units (0.5 mL) subcut BEDTIME lactulose 15 mL PO BEDTIME 90 days lancets Use 1 lancet three times a day magnesium oxide 500 mg PO DAILY 90 days melatonin 3 mg PO BEDTIME PRN methylcellulose (laxative) (Fiber Laxative (methylcellulose)) 500 mg PO BID multivitamin 1 tab PO DAILY nystatin 1 appl topical DAILY 30 days pen needle, diabetic (1st Tier Unifine Pentips Plus) Use 1 pen needle once a day polyethylene glycol 3350 (Miralax) 17 grams PO DAILY rosuvastatin 40 mg PO DAILY 90 days vitamin E (dl, acetate) 90 mg PO DAILY 90 days HPI Comments Details: Prerna is a Citizen Of [place]-speaking female. She is a patient Dr. Glaser. She is seen for the following urologic conditions - vaginal prolapse - cystocele - genitourinary syndrome menopause Citizen Of [place] translation provided by qualified coroner/medical examiner Uterine prolapse A number of years ago was min to get a procedure at [facility] This was cancel due to uncertain reasons Had been previously evaluated by OB Currently with poorly controlled diabetes HbA1c 9.6 Feels vaginal bulge Has position related stress incontinence For prior pregnancies with vaginal delivery Denies any precipitant labor or prolonged labor Will start estrogen for genitourinary syndrome of menopause Referred to Dr. West for pessary assessment potential cystocele repair [facility] Medical History (Updated 05/12/24 @ 15:23 by Javy Jama MD) Cerebral venous infarction, chronic Uncontrolled type 2 diabetes mellitus with hyperglycemia, with long-term current use of insulin Dyslipidemia Headache Obesity due to excess calories Insomnia Diabetic polyneuropathy associated with type 2 diabetes mellitus Diabetic nephropathy associated with type 2 diabetes mellitus Mild nonproliferative diabetic retinopathy associated with type 2 diabetes mellitus Gallstones Chronic constipation Abdominal pain Dyslipidemia Skin lesion Venous (peripheral) insufficiency Arthritis Diabetes GERD (gastroesophageal reflux disease) Hx of simple renal cyst Hx of renal calculi Asthma Angina pectoris Elevated cholesterol Surgical History History of right cataract surgery H/O colonoscopy History of varicose veins History of tubal ligation Family History Father Stroke Mother Cancer Brother Mental health disorder Social History Household Members: None Household Members Other:: Lives alone Housing: Apartment Alcohol intake: never Patient Tobacco Use Status: Former Tobacco user Tobacco use type: Cigarette e-Cigarette/Vaping Use: Never Used Second Hand Smoke Exposure: No service: No Current occupational status: disabled Cognitive needs: No Hearing needs: No Vision needs: Yes Female Reproductive History Menstrual Age of Menarche: 13 Review of Systems Const Denies chills and Denies fever(s) Card Reports no additional complaints and Denies syncope Resp Denies cough GI Denies abdominal pain and Denies heartburn Reports as per HPI and Denies change in libido Neuro Denies syncope Psych Denies change in libido Endo Denies change in libido Physical Exam Const General: cooperative, healthy appearing, comfortable and no acute distress Orientation/consciousness: patient oriented x3 HEENT Face and sinus: Yes normal facial exam Mouth: moist mucous membranes Neck Neck: Yes normal visual inspection, Yes full ROM and Yes trachea midline Chest Chest palpation & inspection: normal inspection of the chest Resp Effort & Inspection: normal respiratory effort, able to speak in complete sentences and no respiratory distress GI Inspection: Yes normal to inspection Back/Spine/Pelvis Cervical Spine: normal cervical lordosis Thoracic/Lumbar Spine: thoracic and lumbar spine normal to inspection Skin General skin exam: no rashes or lesions noted Neuro General: patient oriented x3, gait normal, tone normal and moves all extremities Extrem General: Yes normal to inspection and Yes capillary refill normal Assessment & Plan Assessment & Plan (1) Female cystocele: Comment: Central and bilateral paravaginal defect Code(s): N81.10 - Cystocele, unspecified Category: Medical (2) Urine incontinence: Code(s): R32 - Unspecified urinary incontinence Category: Medical (3) Genitourinary syndrome of menopause: Code(s): N95.8 - Other specified menopausal and perimenopausal disorders Category: Medical Plan Start Estrace 3 times a week Medications: New estradiol 0.01%(0.1mg/gram) Apply 1 in thinly to labial area and vaginal introitus 42.5 grams 2RF 30 days N95.2 - Postmenopausal atrophic vaginitis, N95.8 - Other specified menopausal and perimenopausal disorders Patient Instructions: Imaging studies, laboratory and physical exam results were discussed and reviewed in detail. No major barriers to patient understanding were identified. An opportunity to ask questions regarding the treatment plan was provided. All questions were answered. The patient expressed understanding and agreement with the above treatment plan. The patient is aware they should contact our office by phone for worsening of their current condition or the appearance of new urologic symptoms. Compliance is encouraged with any medications and followup testing that is ordered. It is a privilege to participate in the urologic care of your patient. If you have any questions or concerns regarding treatment for the above conditions, or other urologic issues, please do not hesitate to contact me. The office telephone contact is [phone]. This note is constructed using voice recognition software. While every effort has been made to ensure accuracy waste elimination errors may have been included. Yours sincerely, Dr Javy Jama MD, [facility]rology Providers of Expert, Compassionate Care for the Genitourinary System Coding Level of Care Code New Pt Level 4 (51104) Diagnoses Female cystocele N81.10 Urine incontinence R32 Genitourinary syndrome of menopause N95.8
== END 2024-05-12 15:28 | disposition home or self-care (01) ==
PROVIDERS: PCP Internal Medicine; Visit Provider Urology
DX: N81.10 Cystocele, unspecified (principal); R32 Unspecified urinary incontinence; N95.8 Other specified menopausal and perimenopausal disorders
CPT/HCPCS: 99204

== ENCOUNTER → 2024-05-12 14:30 | Outpatient (BNVA) | payer OTHER, SELFPAY | PROVIDERS: PCP Internal Medicine; Visit Provider Urology | DX: N81.10 Cystocele, unspecified (principal); R32 Unspecified urinary incontinence; N95.8 Other specified menopausal and perimenopausal disorders | CPT/HCPCS: 99202 ==

== ENCOUNTER 2024-06-15 13:34 | Outpatient (AMB) | payer OTHER, SELFPAY ==
--- NOTE | 2024-06-15 13:35 | A.OFFVIS_ITS ---
Vital Signs 06/15/24 13:38 Height 5 ft 3 in Weight 198 lb 6.656 oz BMI 35.1 BP 120/70 Blood Pressure Location Rt brachial Position Sitting Pulse 58 Pulse Source Pulse Oximeter Intake Visit Reasons: DM/lvm Intake Note: Patient presents today for a follow-up on Type 2 Diabetes Mellitus: Last Diabetic eye exam was on: October 2023 Last Podiatry exam was on: Does not see a Lab Associate Most recent HbA1c: 9.6% 04/26/24 Random Glucose- 202 mg/dL, Today Tire Man Required: Yes Tire Man Language: Vice President Industrial Relations Services: Tire Man Present ([employer] sales training representative via video call ) Information Interpreted: non-clinical & clinical Accompanied by: Self / Same As Patient Allergies codeine [CODEINE] Allergy (Intermediate, Verified 06/15/24 13:36) RASH Seasonal Allergies Allergy (Mild, Verified 06/15/24 13:36) itchy eye Medication List - Last Reconciled 06/15/24 by KENDRICK Branch acetaminophen 1,000 mg (2 x 500 mg) PO Q6H PRN alcohol swabs (Alcohol Prep Pads) 1 pad topical BID 90 days amitriptyline 50 mg PO BEDTIME amlodipine 5 mg PO DAILY 90 days blood pressure test kit-medium As directed blood sugar diagnostic (OneTouch Ultra Test strips) USE 1 TO TEST BLOOD SUGAR THREE TIMES DAILY blood sugar diagnostic (Accu-Chek Isabela Plus test strips) twice a day blood-glucose meter (OneTouch Ultra2 Meter kit) As directed ozigdicpqv-mzoxlvveufuik-soci 50-325-40 mg 1 tab PO Q8H PRN calcium polycarbophil (Fiber-Lax) 1,250 mg (2 x 625 mg) PO DAILY 90 days docusate sodium (Colace) 100 mg PO BID 30 days empagliflozin (Jardiance) 25 mg PO DAILY 90 days estradiol 0.01%(0.1mg/gram) Apply 1 in thinly to labial area and vaginal introitus 30 days hydrochlorothiazide 12.5 mg PO DAILY 90 days hydroquinone 4% 1 appl topical DAILY 30 days insulin degludec (Tresiba FlexTouch U-100 insulin) 54 units subcut BEDTIME lactulose 15 mL PO BEDTIME 90 days lancets Use 1 lancet three times a day magnesium oxide 500 mg PO DAILY 90 days melatonin 3 mg PO BEDTIME PRN methylcellulose (laxative) (Fiber Laxative (methylcellulose)) 500 mg PO BID multivitamin 1 tab PO DAILY nystatin 1 appl topical DAILY 30 days pen needle, diabetic (1st Tier Unifine Pentips Plus) Use 1 pen needle once a day polyethylene glycol 3350 (Miralax) 17 grams PO DAILY rosuvastatin 40 mg PO DAILY 90 days vitamin E (dl, acetate) 90 mg PO DAILY 90 days HPI Comments Details: This is a 74-year-old female with a past medical history of CKD stage 3, NAFLD, type 2 diabetes, obesity, dyslipidemia and hypertension presenting for diabetic management. She was last seen in the endocrinology department by me 04/27/24. Video sales training representative used the patient speaks Swedish for the majority of the visit. She did not bring her glucometer to the visit. She reports that blood glucose has been around 100-140s in the morning. Her blood sugars are running higher in the evening 200-240. Denies hypoglycemia. Her lowest glucose reading was 74. Hemoglobin a1c 9.6% 04/26/2024. Current medication regimen: Tresiba 50 mg and she was started on Jardiance 10 mg at our last visit which was increased to 25 mg on 04/29/24 by her PCP. Will not take Metformin and Glipizide due to concerns about side effects. Patient says they cause cancer. She was previously on Lantus. Glp1 was considered, but she has gallstones. Hypoglycemia symptoms: none Hyperglycemia symptoms: none Eye exam: NE Retina with Dr. Jarrett. Microvascular complications: neuropathy, nephropathy (CKD stage 3, microalbumin), retinopathy. Patient followed by Nephrology for diabetic nephropathy. Macrovascular complications: none Hypertension: treated with amlodipine 5 mg, hydrochlorothiazide 12.5 mg. She will not take ACEs or arbs because she says that they cause cancer. Hyperlipidemia: treated with rosuvastatin 40 mg. LDL at goal <100. ROS: Constitutional: No unexplained weight loss, fever, chills, fatigue or night sweats. Eyes: No vision changes, blurry vision, double vision, eye pain Respiratory: No shortness of breath Cardiovascular: No chest pain, chest pressure or chest discomfort. No palpitations or pedal edema. Gastrointestinal: No anorexia, nausea, vomiting or diarrhea. No abdominal pain Neurologic: No headache, dizziness, syncope, unilateral weakness, ataxia Skin: No rash or open wounds Endocrine: see HPI Physical exam: Constitutional: Alert, in no distress. Eyes: Pupils are equal, round and reactive to light. Extraocular muscles intact. Neck: Supple, Full range of motion. No lymphadenopathy. No palpable thyroid masses or thyromegaly. Respiratory: Clear to auscultation. Cardiovascular: S1 S2 regular. No murmurs Neurologic: No focal neurological deficits. Extremities: Warm and well perfused. No edema. Bilateral varicose veins noted of the lower extremities. Psychiatric: Cooperative [facility] Medical History Cerebral venous infarction, chronic Uncontrolled type 2 diabetes mellitus with hyperglycemia, with long-term current use of insulin Dyslipidemia Headache Obesity due to excess calories Insomnia Diabetic polyneuropathy associated with type 2 diabetes mellitus Diabetic nephropathy associated with type 2 diabetes mellitus Mild nonproliferative diabetic retinopathy associated with type 2 diabetes me llitus Gallstones Chronic constipation Abdominal pain Dyslipidemia Skin lesion Venous (peripheral) insufficiency Arthritis Diabetes GERD (gastroesophageal reflux disease) Hx of simple renal cyst Hx of renal calculi Asthma Angina pectoris Elevated cholesterol Surgical History History of right cataract surgery H/O colonoscopy History of varicose veins History of tubal ligation Family History Father Stroke Mother Cancer Brother Mental health disorder Social History Household Members: None Household Members Other:: Lives alone Housing: Apartment Alcohol intake: never Patient Tobacco Use Status: Former Tobacco user Tobacco use type: Cigarette e-Cigarette/Vaping Use: Never Used Second Hand Smoke Exposure: No service: No Current occupational status: disabled Cognitive needs: No Hearing needs: No Vision needs: Yes Female Reproductive History Menstrual Age of Menarche: 13 Physical Exam Vital Signs: Last Vital Signs Pulse 58 06/15/24 13:38 BP 120/70 06/15/24 13:38 BMI result Body Mass Index 35.1 Results Reviewed Results Reviewed: Laboratory Last Values Glucose (Clinic) 202 mg/dL (60-115) H 06/15/24 13:48 Laboratory Tests 04/26/24 04/26/24 08:56 09:00 Creatinine 1.10 Estimated GFR 49 Hemoglobin A1c % 9.6 H Triglycerides 108 Cholesterol 145 LDL Cholesterol, Calc 66 HDL Cholesterol 58 U Random Total Protein 57 H Microalb/Creat Ratio 283.2 H Protein/Creatinin Ratio 0.51 H Laboratory Tests 03/12/23 10/14/23 11:49 13:42 Hgb A1c (Clinic) 8.5 H 9.5 H Assessment & Plan Assessment & Plan (1) Uncontrolled type 2 diabetes mellitus with hyperglycemia, with long-term current use of insulin: Code(s): E11.65 - Type 2 diabetes mellitus with hyperglycemia; 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 I tried to mitigate some of her concerns regarding medication side effects, but she is adamant. She we will increase Tresiba to 54 units daily and continue Jardiance 25 mg. Monitor for hypoglycemia. If she has hypoglycemic episodes she will revert to the prior dose and contact the office. Reviewed treatment of hypoglycemia and sent glucose tablets to the pharmacy. The patient continues to decline CGM. Advised her of the importance of bringing her glucometer to office visits to review. She would like to see the dietitian to help with weight loss. Referred. She is due for lab work which she said she will have done next week. Added hemoglobin A1c to orders. Follow up in 6 weeks for type 2 diabetes. Orders: Orders Hemoglobin A1c Today E11.9 - Type 2 diabetes mellitus without complications Referrals Molder Machine Tender Nutrition Referral E11.65 - Type 2 diabetes mellitus with hyperglycemia, Z79.4 - prison (current) use of insulin Medications: New glucose (Dex4 Glucose Quick Dissolve) until symptoms of low blood sugar are controlled 16 grams (4 x 4 gram) PO Q 15M PRN 10 tabs 3RF hypoglycemia/low blood sugar Coding Level of Care Code Est Pt Level 4 (63811) Complex EM visit Add On G2211 Diagnoses Uncontrolled type 2 diabetes mellitus with hyperglycemia, with long-term current use of insulin E11.65; Z79.4
[2024-06-15 13:38] VITALS: BP 120/70; PULSE 58; BMI 35.1
[2024-06-15 13:57] LABS: Glucose, Whole Blood 202 mg/dL (60-115)
== END 2024-06-15 14:15 | disposition home or self-care (01) ==
PROVIDERS: PCP Internal Medicine; Visit Provider Physician Assistant Medical
DX: E11.65 Type 2 diabetes mellitus with hyperglycemia (principal); Z79.4 Long term (current) use of insulin

== ENCOUNTER → 2024-06-15 13:34 | Outpatient (BNVA) | payer OTHER, SELFPAY | PROVIDERS: PCP Internal Medicine; Visit Provider Physician Assistant Medical | DX: E11.65 Type 2 diabetes mellitus with hyperglycemia (principal); Z79.4 Long term (current) use of insulin | CPT/HCPCS: 82947; 99212 ==

== ENCOUNTER 2024-06-17 14:26 | Outpatient (REF) | payer OTHER, SELFPAY ==
--- NOTE | ~2024-06-17 | MM_ITS ---
EXAMINATION: BONE DENSITOMETRY CLINICAL INDICATION: Unspecified menopausal and perimenopausal disorder. COMPARISON: Previous BD dated 09/19/2020 and baseline BD dated 08/15/2016. TECHNIQUE: Using a LectureTools DXA System (software version: 13.1) manufactured by [employer], dual-energy x-ray absorptiometry was performed of the lumbar spine and left hip. The images are of good technical quality. Summary results are attached. FINDINGS: LEFT FEMUR, NECK: Current: BMD 0.770 g/cm2, Z-score -0.6, T-score -1.9, osteopenia. Prior: BMD 0.858 g/cm2. Baseline: BMD 0.904 g/cm2. LEFT FEMUR, TOTAL: Current: BMD 0.965 g/cm2, Z-score 0.8, T-score -0.3, normal, 7.0% decrease from previous, 10.1% decrease from baseline (<5% change is not significant). Prior: BMD 1.038 g/cm2. Baseline: BMD 1.073 g/cm2. AP SPINE L1-L4: Current: BMD 1.072 g/cm2, Z-score 0.1, T-score -0.9, normal, 3.8% decrease from previous, 0.2% increase from baseline (<5% change is not significant). Prior: BMD 1.114 g/cm2. Baseline: BMD 1.070 g/cm2. IDENTIFIED RISK FACTORS: Height loss, menopause, recurrent falls, rheumatoid arthritis. HISTORY OF FRACTURE: None listed. MEDICATIONS: None listed. MM/XR DEXA axial skeleton IMPRESSION: 1. DIAGNOSIS: Osteopenia based on the lowest T-score value of -1.9 in the femoral neck applying World Health Organization criteria. 2. 10-YEAR FRACTURE RISK PREDICTION, FRAX: Major osteoporotic fracture (clinical spine, forearm, hip or shoulder) 8.7%. Hip fracture 2.0%. 3. Treatment Recommendations: NOF guidelines recommend consideration for treatment in postmenopausal women and men age 50 and older presenting with the following: -A hip or vertebral (clinical or morphometric) fracture. -T-score less than or equal to -2.5 at the femoral neck or spine after appropriate evaluation to exclude secondary causes. -Low bone mass at the hip or spine and a 10-year fracture probability by FRAX of greater than or equal to 3% for hip fracture or greater than or equal to 20% for major osteoporotic fracture based on the [place] adapted WHO algorithm. 4. Other Recommendations: All treatment decisions require clinical judgment and consideration of individual patient factors, including patient preferences, comorbidities, previous drug use, risk factors not captured in the FRAX model (e.g. frailty, falls, vitamin D deficiency, increased bone turnover, interval significant decline in bone density) and possible under or overestimation of fracture risk by FRAX. Additional medical evaluation for secondary cause of low bone mineral density may be appropriate. FUTURE SCAN RECOMMENDATION: People with diagnosed cases of osteoporosis or at high risk for fracture should have regular bone mineral density tests. For patients eligible for Medicare, routine testing is allowed once every 2 years. The testing frequency can be increased to one year for patients who have rapidly progressing disease, those who are receiving or discontinuing medical therapy to restore bone mass, or have additional risk factors. Electronically signed by: Slim Kenney MD 06/28/2024 08:10 AM EDT
--- NOTE | ~2024-06-17 | MM_ITS ---
EXAMINATION: MM SCREENING DIGITAL BREAST TOMOSYNTHESIS, BILATERAL CLINICAL INFORMATION: Screening. Asymptomatic. COMPARISON: Mammography: Comparison is made with available priors TECHNIQUE: Digital breast mammography with tomosynthesis is performed in both the craniocaudal and mediolateral oblique views along with computer-aided detection (CAD). FINDINGS: There are scattered areas of fibroglandular density (ACR BI-RADS breast composition Category b). There are no significant masses, abnormal calcifications, or other abnormalities. MM/MM tomosynthesis screening BI IMPRESSION: No mammographic evidence of malignancy. ASSESSMENT: BI-RADS BI-RADS 1 - Negative RECOMMENDATION: Routine annual mammography screening. 1 year F/U This examination should not preclude the clinical evaluation of a suspicious palpable abnormality. This patient's information was entered into a reminder system with a target due date for their next mammogram. Electronically signed by: Marlene Cowart DO 06/29/2024 12:27 PM EDT
== END 2024-06-17 14:27 | disposition home or self-care (01) ==
LOC: HO.MAMMO 14:26
PROVIDERS: PCP Internal Medicine; Visit Provider Internal Medicine
DX: Z12.31 Encounter for screening mammogram for malignant neoplasm of breast (principal); Z13.820 Encounter for screening for osteoporosis; Z78.0 Asymptomatic menopausal state
CPT/HCPCS: 77063; 77067; 77080

== ENCOUNTER → 2024-06-17 15:00 | Outpatient (BNV) | payer OTHER, SELFPAY | PROVIDERS: PCP Internal Medicine; Visit Provider Internal Medicine | DX: Z12.31 Encounter for screening mammogram for malignant neoplasm of breast (principal) | CPT/HCPCS: 77063; 77067 ==

== ENCOUNTER 2024-06-24 14:31 | Outpatient (AMB) | payer OTHER, SELFPAY ==
--- NOTE | 2024-06-24 14:32 | MHC.OFFVIS ---
Intake Visit Reasons: follow up/pessary assessment Intake Note: Patient is present for F/U PESSARY ASSESSMENT Urology Medication:ESTRADIO Antibiotic Allergy:NONE Blood Thinner:NONE Policy Advisor Required: Yes Policy Advisor Services: Policy Advisor Present Policy Advisor Name: Chris Luna Information Interpreted: non-clinical & clinical Allergies codeine [CODEINE] Allergy (Intermediate, Verified 06/24/24 14:34) RASH Seasonal Allergies Allergy (Mild, Verified 06/24/24 14:34) itchy eye Medication List - Last Reconciled 06/24/24 by Lucia Paul MD acetaminophen 1,000 mg (2 x 500 mg) PO Q6H PRN alcohol swabs (Alcohol Prep Pads) 1 pad topical BID 90 days amitriptyline 50 mg PO BEDTIME amlodipine 5 mg PO DAILY 90 days blood pressure test kit-medium As directed blood sugar diagnostic ([employer] Ultra Test strips) USE 1 TO TEST BLOOD SUGAR THREE TIMES DAILY blood sugar diagnostic (Accu-Chek Isabela Plus test strips) twice a day blood-glucose meter ([employer] Ultra2 Meter kit) As directed dsltbfxoec-rafxldmsqaryn-hlpv 50-325-40 mg 1 tab PO Q8H PRN calcium polycarbophil (Fiber-Lax) 1,250 mg (2 x 625 mg) PO DAILY 90 days docusate sodium (Colace) 100 mg PO BID 30 days empagliflozin (Jardiance) 25 mg PO DAILY 90 days estradiol 0.01%(0.1mg/gram) Apply 1 in thinly to labial area and vaginal introitus 30 days glucose (Dex4 Glucose Quick Dissolve) 16 grams (4 x 4 gram) PO Q15M PRN hydrochlorothiazide 12.5 mg PO DAILY 90 days hydroquinone 4% 1 appl topical DAILY 30 days insulin degludec (Tresiba FlexTouch U-100 insulin) 54 units subcut BEDTIME lactulose 15 mL PO BEDTIME 90 days lancets Use 1 lancet three times a day magnesium oxide 500 mg PO DAILY 90 days melatonin 3 mg PO BEDTIME PRN methylcellulose (laxative) (Fiber Laxative (methylcellulose)) 500 mg PO BID multivitamin 1 tab PO DAILY nystatin 1 appl topical DAILY 30 days pen needle, diabetic (1st Tier Unifine Pentips Plus) Use 1 pen needle once a day polyethylene glycol 3350 (Miralax) 17 grams PO DAILY rosuvastatin 40 mg PO DAILY 90 days vitamin E (dl, acetate) 90 mg PO DAILY 90 days HPI Comments Details: 06/24/24--Prerna is a Ugandan-speaking female. She was previouly evaluated by Dr. Jama 05/12/24 for - vaginal prolapse, - cystocele, - genitourinary syndrome menopause, she was started on estrace cream and follow up was made for pessary fitting today. The patient states she does not want a pessary. She is interested in surgical management. I will refer to Urogyn. In review the patient had a renal US - 11/12/23-Left renal cysts, no renal calculi. Review of chart: 05/12/24: seen by Dr. Jama Uterine prolapse A number of years ago was min to get a procedure at [facility] This was cancel due to uncertain reasons Had been previously evaluated by OB Currently with poorly controlled diabetes HbA1c 9.6 Feels vaginal bulge Has position related stress incontinence For prior pregnancies with vaginal delivery Denies any precipitant labor or prolonged labor Will start estrogen for genitourinary syndrome of menopause Referred to Dr. Jaramillo for pessary assessment potential cystocele repair [facility] Medical History Cerebral venous infarction, chronic Uncontrolled type 2 diabetes mellitus with hyperglycemia, with long-term current use of insulin Dyslipidemia Headache Obesity due to excess calories Insomnia Diabetic polyneuropathy associated with type 2 diabetes mellitus Diabetic nephropathy associated with type 2 diabetes mellitus Mild nonproliferative diabetic retinopathy associated with type 2 diabetes mellitus Gallstones Chronic constipation Abdominal pain Dyslipidemia Skin lesion Venous (peripheral) insufficiency Arthritis Diabetes GERD (gastroesophageal reflux disease) Hx of simple renal cyst Hx of renal calculi Asthma Angina pectoris Elevated cholesterol Surgical History History of right cataract surgery H/O colonoscopy History of varicose veins History of tubal ligation Family History Father Stroke Mother Cancer Brother Mental health disorder Social History Household Members: None Household Members Other:: Lives alone Housing: Apartment Alcohol intake: never Patient Tobacco Use Status: Former Tobacco user Tobacco use type: Cigarette e-Cigarette/Vaping Use: Never Used Second Hand Smoke Exposure: No service: No Current occupational status: disabled Cognitive needs: No Hearing needs: No Vision needs: Yes Female Reproductive History Menstrual Age of Menarche: 13 Results AMB Urinalysis, Automated UA Leukoctes 0 Bryan/uL Last Edit by TAYA Pace on 06/24/24 15:07 UA Nitrite Negative Last Edit by TAYA Pace on 06/24/24 15:07 UA Urobilinogen 0.2 mg/dL Last Edit by Mere Miller CCM on 06/24/24 15:07 UA Protein 15 mg/dL Last Edit by Mere Miller CCM on 06/24/24 15:07 UA pH 5.5 Last Edit by Mere Miller [facility] on 06/24/24 15:07 UA Blood 0 Isaak/uL Last Edit by TYAA Pace on 06/24/24 15:07 UA Specific [place] 1.020 Last Edit by Mere Miller [facility] on 06/24/24 15:07 UA Ketone Negative Last Edit by Mere Miller CCM on 06/24/24 15:07 UA Bilirubin 0 mg/dL Last Edit by Mere Miller [facility] on 06/24/24 15:07 UA Glucose 0 mg/dL Last Edit by Mere Miller [facility] on 06/24/24 15:07 Results Reviewed Results Reviewed: Laboratory Last Values Urine pH (Auto) 5.5 06/24/24 15:06 Specific [place] (Auto) 1.020 06/24/24 15:06 Urine Protein (Auto) 15 mg/dL 06/24/24 15:06 Glucose (UA)(Auto) 0 mg/dL 06/24/24 15:06 Urine Ketones (Auto) Negative 06/24/24 15:06 Urine Blood (Auto) 0 Isaak/uL 06/24/24 15:06 Urine Nitrite (Auto) Negative 06/24/24 15:06 Urine Bilirubin (Auto) 0 mg/dL 06/24/24 15:06 Urine Urobilinogen (Auto) 0.2 mg/dL 06/24/24 15:06 Leukocyte Esterase (Auto) 0 Bryan/uL 06/24/24 15:06 Date of Service: 11/12/23 US RETROPERITONEAL LIMITED (RENAL ONLY) CLINICAL INFORMATION: Cyst of kidneys. COMPARISON: Ultrasound abdomen complete 11/13/2020 TECHNIQUE: Routine grayscale imaging of kidneys is performed. FINDINGS: RIGHT KIDNEY: 10.6 x 4.9 x 5.0 cm (SAG x AP x TRV). The kidney is normal in size, contour, and echogenicity. Renal cortical thickness is normal. No calculi or focal parenchymal lesions. No hydronephrosis. LEFT KIDNEY: 11.2 x 4.7 x 3.8 cm (SAG x AP x TRV). The kidney is normal in size, contour, and echogenicity. Renal cortical thickness is normal. No calculi or focal parenchymal lesions. No hydronephrosis. There are multiple anechoic cysts. The largest cyst in lower pole measures 2.8 x 2.4 x 2.8 cm. IMPRESSION: 1. Multiple left renal cysts. 2. The right kidney is unremarkable. Assessment & Plan Assessment & Plan (1) Female cystocele: Comment: Central and bilateral paravaginal defect Code(s): N81.10 - Cystocele, unspecified Category: Medical (2) Urine incontinence: Code(s): R32 - Unspecified urinary incontinence Category: Medical (3) Genitourinary syndrome of menopause: Code(s): N95.8 - Other specified menopausal and perimenopausal disorders Category: Medical Plan estrace cream. refer to Urogyn Orders: Orders AMB Urinalysis Automated 06/24/24 Z13.9 - Encounter for screening, unspecified Referrals Urogynecology Referral N81.10 - Cystocele, unspecified Patient Instructions: The patient had an opportunity to ask questions regarding treatment plan. The patient expressed understanding and agreement with the above treatment plan. The patient is aware they should contact our office by phone for worsening of their current condition or the appearance of new symptoms. Compliance is encouraged with any medications and followup testing that is ordered. It is a privilege to be allowed the opportunity to participate in the urologic care of your patient. If you have any questions or concerns regarding treatment for the above conditions please do not hesitate to contact me. The office telephone contact is [phone]. This note is constructed in part using voice recognition software. While every effort has been made to ensure accuracy lock installer errors may have been included. Yours sincerely, Lucia Paul MD Coding Level of Care Code Est Pt Level 4 (68462) Diagnoses Female cystocele N81.10 Urine incontinence R32 Genitourinary syndrome of menopause N95.8
== END 2024-06-24 15:52 | disposition home or self-care (01) ==
PROVIDERS: PCP Internal Medicine; Visit Provider Urology
DX: N81.10 Cystocele, unspecified (principal); R32 Unspecified urinary incontinence; N95.8 Other specified menopausal and perimenopausal disorders
CPT/HCPCS: 99214

== ENCOUNTER → 2024-06-24 14:31 | Outpatient (BNVA) | payer OTHER, SELFPAY | PROVIDERS: PCP Internal Medicine; Visit Provider Urology | DX: N81.10 Cystocele, unspecified (principal); R32 Unspecified urinary incontinence; N95.8 Other specified menopausal and perimenopausal disorders | CPT/HCPCS: 81003; 99212 ==

== ENCOUNTER 2024-08-11 14:25 | Outpatient (AMB) | payer OTHER, SELFPAY ==
[2024-08-11 14:41] VITALS: BP 152/70; PULSE 61; O2SAT 97; BMI 35.8
--- NOTE | 2024-08-11 14:41 | HO.NEPHOV ---
Vital Signs 08/11/24 14:41 Height 5 ft 3 in Weight 202 lb 2 oz BMI 35.8 BP 152/70 H Blood Pressure Location Lt brachial Position Sitting Pulse 61 Pulse Source Pulse Oximeter Pulse Oximetry (%) 97 Oxygen Delivery Method Room Air Intake Visit Reasons: CKD/ Conf Box Hinge And Lock Attacher Required: No Accompanied by: Self / Same As Patient Allergies codeine [CODEINE] Allergy (Intermediate, Verified 08/11/24 14:43) RASH Seasonal Allergies Allergy (Mild, Verified 08/11/24 14:43) itchy eye HPI Comments Details: 74-year-old female with hypertension, diabetes mellitus type 2 on long-term current use of insulin, dyslipidemia and mild proteinuric chronic kidney disease with several an echoic cysts on the left kidney was seen in follow-up. Her last renal USS which showed left renal cysts. She is going to see Dr. Jama from Urology. Her renal functions had been stable. She was not taking any medications for 3 days but restarted again yesterday. She denies chest pain, shortness of breath, paroxysmal nocturnal dyspnea, orthopnea, pedal edema, orthostatic symptoms. She does not take any excessive nonsteroidal anti-inflammatories. She tries to keep up with good hydration. Her renal functions had been stable. She is on SGLT2 inhibitor [facility] Medical History Cerebral venous infarction, chronic Uncontrolled type 2 diabetes mellitus with hyperglycemia, with long-term current use of insulin Dyslipidemia Headache Obesity due to excess calories Insomnia Diabetic polyneuropathy associated with type 2 diabetes mellitus Diabetic nephropathy associated with type 2 diabetes mellitus Mild nonproliferative diabetic retinopathy associated with type 2 diabetes mellitus Gallstones Chronic constipation Abdominal pain Dyslipidemia Skin lesion Venous (peripheral) insufficiency Arthritis Diabetes GERD (gastroesophageal reflux disease) Hx of simple renal cyst Hx of renal calculi Asthma Angina pectoris Elevated cholesterol Surgical History History of right cataract surgery H/O colonoscopy History of varicose veins History of tubal ligation Family History Father Stroke Mother Cancer Brother Mental health disorder Social History Household Members: None Household Members Other:: Lives alone Housing: Apartment Alcohol intake: never Patient Tobacco Use Status: Former Tobacco user Tobacco use type: Cigarette e-Cigarette/Vaping Use: Never Used Second Hand Smoke Exposure: No service: No Current occupational status: disabled Cognitive needs: No Hearing needs: No Vision needs: Yes Female Reproductive History Menstrual Age of Menarche: 13 Review of Systems Const All systems reviewed & are unremarkable except as noted in HPI and below Physical Exam Vital Signs: Last Vital Signs Pulse 61 08/11/24 14:41 BP 152/70 H 08/11/24 14:41 Pulse Ox 97 08/11/24 14:41 Oxygen Delivery Method Room Air 08/11/24 14:41 BMI result Body Mass Index 35.8 Const General: comfortable and no acute distress Orientation/consciousness: patient oriented x3 HEENT Head: Yes normocephalic Mouth: Normal oral and palatal mucosa present Eyes EOM: EOMs intact bilaterally Neck Neck: Yes supple Resp Auscultation: clear to auscultation bilaterally Cardio Jugular venous distension: no JVD Rate: regular rate GI Palpation (GI): Soft to palpation Auscultation: normal bowel sounds General: Yes no CVA tenderness Back/Spine/Pelvis Back: no CVA tenderness Skin General skin exam: no rashes or lesions noted Neuro General: patient oriented x3 and moves all extremities Extrem General: Yes no pedal edema Results Reviewed Nephrology Results: No Data to Display Assessment & Plan Assessment & Plan (1) CKD (chronic kidney disease) stage 3, GFR 30-59 ml/min: Code(s): N18.30 - Chronic kidney disease, stage 3 unspecified Category: Medical Qualifiers: Chronic kidney disease stage 3 subtype: stage 3a (GFR 45-59) Qualified Code(s): N18.31 - Chronic kidney disease, stage 3a (2) Diabetic nephropathy: Code(s): E11.21 - Type 2 diabetes mellitus with diabetic nephropathy Category: Medical Qualifiers: Diabetes mellitus type: type 2 Qualified Code(s): E11.21 - Type 2 diabetes mellitus with diabetic nephropathy (3) Renal cyst: Code(s): N28.1 - Cyst of kidney, acquired Category: Medical (4) HTN (hypertension): Code(s): I10 - Essential (primary) hypertension Category: Medical Qualifiers: Hypertension type: essential hypertension Qualified Code(s): I10 - Essential (primary) hypertension Plan 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 She has proteinuria. She has not on any JASWANT inhibitor or ARB. I discussed about initiating on it but she wanted to wait. Her blood sugar control is better after initiating Jardiance. She avoids nonsteroidal anti-inflammatories and tries to maintain good hydration which I encouraged. She is going to follow-up with urology. I did not make any medication changes today. Follow-up lab work ordered. Shall repeat imaging studies next year. All questions answered. Follow-up appointment given Orders: Orders Creatinine 4 Months E11.21 - Type 2 diabetes mellitus with diabetic nephropathy, N18.31 - Chronic kidney disease, stage 3a, N28.1 - Cyst of kidney, acquired Electrolytes 4 Months E11.21 - Type 2 diabetes mellitus with diabetic nephropathy, N18.31 - Chronic kidney disease, stage 3a, N28.1 - Cyst of kidney, acquired Protein Creatinine Ratio, Ur 4 Months E11.21 - Type 2 diabetes mellitus with diabetic nephropathy, N18.31 - Chronic kidney disease, stage 3a, N28.1 - Cyst of kidney, acquired Blood Urea Nitrogen 4 Months E11.21 - Type 2 diabetes mellitus with diabetic nephropathy, N18.31 - Chronic kidney disease, stage 3a, N28.1 - Cyst of kidney, acquired Coding Level of Care Code Est Pt Level 4 (14232) Diagnoses Stage 3a chronic kidney disease N18.31 Chronic kidney disease stage 3 subtype: stage 3a (GFR 45-59) Diabetic nephropathy associated with type 2 diabetes mellitus E11.21 Diabetes mellitus type: type 2 Renal cyst N28.1 Essential hypertension I10 Hypertension type: essential hypertension
== END 2024-08-11 15:00 | disposition home or self-care (01) ==
LOC: HO.HKA 14:26
PROVIDERS: PCP Internal Medicine; Visit Provider Internal Medicine Nephrology
DX: I12.9 Hypertensive chronic kidney disease with stage 1 through stage 4 chronic kidney disease, or unspecified chronic kidney disease (principal); E11.22 Type 2 diabetes mellitus with diabetic chronic kidney disease; N18.31 Chronic kidney disease, stage 3a; N28.1 Cyst of kidney, acquired
CPT/HCPCS: 99214

== ENCOUNTER → 2024-08-11 14:25 | Outpatient (BNVA) | payer OTHER, SELFPAY | PROVIDERS: PCP Internal Medicine; Visit Provider Internal Medicine Nephrology | DX: I12.9 Hypertensive chronic kidney disease with stage 1 through stage 4 chronic kidney disease, or unspecified chronic kidney disease (principal); E11.22 Type 2 diabetes mellitus with diabetic chronic kidney disease; E11.21 Type 2 diabetes mellitus with diabetic nephropathy; N28.1 Cyst of kidney, acquired; N18.31 Chronic kidney disease, stage 3a; Z79.4 Long term (current) use of insulin | CPT/HCPCS: 99212 ==

== ENCOUNTER 2024-12-24 14:34 | Outpatient (AMB) | payer OTHER, SELFPAY ==
--- NOTE | 2024-12-24 14:33 | HO.NEPHOV ---
Vital Signs 12/24/24 14:34 Height 5 ft 3 in Weight 199 lb BMI 35.2 BP 142/70 H Blood Pressure Location Lt brachial Position Sitting Pulse 70 Pulse Source Pulse Oximeter Pulse Oximetry (%) 98 Oxygen Delivery Method Room Air Intake Visit Reasons: CKD/ 4 MO FU-Conf Prepleater Required: No Accompanied by: Self / Same As Patient Allergies codeine [CODEINE] Allergy (Intermediate, Verified 12/24/24 14:39) RASH Seasonal Allergies Allergy (Mild, Verified 12/24/24 14:39) itchy eye Do you need a note to return to daycare/school/sports/work: No HPI Comments Details: 74-year-old female with hypertension, diabetes mellitus type 2 on long-term current use of insulin, dyslipidemia and mild proteinuric chronic kidney disease with several an echoic cysts on the left kidney was seen in follow-up. Her last renal USS which showed left renal cysts. She follows up with Urology. Her renal functions had been stable.She denies chest pain, shortness of breath, paroxysmal nocturnal dyspnea, orthopnea, pedal edema, orthostatic symptoms. She does not take any excessive nonsteroidal anti-inflammatories. She tries to keep up with good hydration. Her renal functions had been stable. She is on SGLT2 inhibitor. She is grieving from loss of her grandson [facility] Medical History Cerebral venous infarction, chronic Uncontrolled type 2 diabetes mellitus with hyperglycemia, with long-term current use of insulin Dyslipidemia Headache Obesity due to excess calories Insomnia Diabetic polyneuropathy associated with type 2 diabetes mellitus Diabetic nephropathy associated with type 2 diabetes mellitus Mild nonproliferative diabetic retinopathy associated with type 2 diabetes mellitus Gallstones Chronic constipation Abdominal pain Dyslipidemia Skin lesion Venous (peripheral) insufficiency Arthritis Diabetes GERD (gastroesophageal reflux disease) Hx of simple renal cyst Hx of renal calculi Asthma Angina pectoris Elevated cholesterol Surgical History History of right cataract surgery H/O colonoscopy History of varicose veins History of tubal ligation Family History Father Stroke Mother Cancer Brother Mental health disorder Social History Household Members: None Household Members Other:: Lives alone Housing: Apartment Alcohol intake: never Patient Tobacco Use Status: Former Tobacco user Tobacco use type: Cigarette e-Cigarette/Vaping Use: Never Used Second Hand Smoke Exposure: No service: No Current occupational status: disabled Cognitive needs: No Hearing needs: No Vision needs: Yes Female Reproductive History Menstrual Age of Menarche: 13 Review of Systems Const All systems reviewed & are unremarkable except as noted in HPI and below Physical Exam Vital Signs: BMI result Body Mass Index 35.2 Const General: comfortable and no acute distress Orientation/consciousness: patient oriented x3 HEENT Head: Yes normocephalic Mouth: Normal oral and palatal mucosa present Eyes EOM: EOMs intact bilaterally Neck Neck: Yes supple Resp Auscultation: clear to auscultation bilaterally Cardio Jugular venous distension: no JVD Rate: regular rate GI Palpation (GI): Soft to palpation Auscultation: normal bowel sounds General: Yes no CVA tenderness Back/Spine/Pelvis Back: no CVA tenderness Skin General skin exam: no rashes or lesions noted Neuro General: patient oriented x3 and moves all extremities Extrem General: Yes no pedal edema Results Reviewed Nephrology Results: No Data to Display Assessment & Plan Assessment & Plan (1) CKD (chronic kidney disease) stage 3, GFR 30-59 ml/min: Code(s): N18.30 - Chronic kidney disease, stage 3 unspecified Category: Medical Qualifiers: Chronic kidney disease stage 3 subtype: stage 3a (GFR 45-59) Qualified Code(s): N18.31 - Chronic kidney disease, stage 3a (2) Diabetic nephropathy: Code(s): E11.21 - Type 2 diabetes mellitus with diabetic nephropathy Category: Medical Qualifiers: Diabetes mellitus type: type 2 Qualified Code(s): E11.21 - Type 2 diabetes mellitus with diabetic nephropathy (3) Renal cyst: Code(s): N28.1 - Cyst of kidney, acquired Category: Medical (4) HTN (hypertension): Code(s): I10 - Essential (primary) hypertension Category: Medical Qualifiers: Hypertension type: essential hypertension Qualified Code(s): I10 - Essential (primary) hypertension Plan 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 She has proteinuria. She has not on any JASWANT inhibitor or ARB. I discussed about initiating on it but she wanted to wait. She wants to wait to see her PCP before she does any blood work. Her last renal USS was reviewed. Her blood sugar control is better after initiating Jardiance. She avoids nonsteroidal anti-inflammatories and tries to maintain good hydration which I encouraged. She is going to follow-up with urology. I did not make any medication changes today. Follow-up lab work ordered. Shall repeat imaging studies with time. All questions answered. Follow-up appointment given Orders: Orders Blood Urea Nitrogen 4 Months E11.21 - Type 2 diabetes mellitus with diabetic nephropathy, N18.31 - Chronic kidney disease, stage 3a, N28.1 - Cyst of kidney, acquired Electrolytes 4 Months E11. - Type 2 diabetes mellitus with diabetic nephropathy, N18.31 - Chronic kidney disease, stage 3a, N28.1 - Cyst of kidney, acquired Protein Creatinine Ratio, Ur 4 Months E11. - Type 2 diabetes mellitus with diabetic nephropathy, N18.31 - Chronic kidney disease, stage 3a, N28.1 - Cyst of kidney, acquired Creatinine 4 Months E11. - Type 2 diabetes mellitus with diabetic nephropathy, N18.31 - Chronic kidney disease, stage 3a, N28.1 - Cyst of kidney, acquired Coding Level of Care Code Est Pt Level 4 (51497) Diagnoses Stage 3a chronic kidney disease N18.31 Chronic kidney disease stage 3 subtype: stage 3a (GFR 45-59) Diabetic nephropathy associated with type 2 diabetes mellitus E11. Diabetes mellitus type: type 2 Renal cyst N28.1 Essential hypertension I10 Hypertension type: essential hypertension
[2024-12-24 14:34] VITALS: BP 142/70; PULSE 70; O2SAT 98; BMI 35.2
--- OUTSIDE RECORDS SUMMARY | 2024-12-24 15:16 | XMS_ITS ---
Author Name Angelo JUSTIN, RN, RD, Ebony Address [address] [place] [id number] Phone [phone] [facility] Care Team Providers Care Training Engineer Name Role Phone Ebony Stephens Unavailable [phone] Reason for Referral Not Available Allergies, adverse reactions, alerts Allergen Type Reaction Severity Status Onset Date Codeine Allergy to substance (disorder) Unknown Active N/A History of medication use Medication Class Instructions Start Date End Date Lantus SoloStar 100 UNIT/ML Solution Pen-injector INJECT 40 UNITS SUBCUTANEOUSLY DAILY IN THE EVENING 2023-03-12 No Data Available hydroCHLOROthiazide 12.5 mg Tab TAKE 1 T ABLET BY MOUTH ONCE DAILY 2023-01-02 No Data Available Amoxicillin 500 mg Cap TAKE 1 CAPSULE BY MOUTH EVERY 8 HOURS FOR 7 DAYS 2023-04-24 No Data Available Chlorhexidine Gluconate 0.12 % Solution SWISH 15 ML FOR 30 SECONDS THEN SPIT OUT THREE TIMES DAILY IN THE MORNING, AT NOON, AND AT BEDTIME FOR 5 DAYS NEEDED 2023-04-24 No Data Available Ibuprofen 800 mg Tab TAKE 1 TABLET BY MO UTH THREE TIMES DAILY IN THE MORNING, AT NOON, AND AT BEDTIME NEEDED FOR MODERATE PAIN 2023-04-24 No Data Available Rosuvastatin Calcium 40 mg Tab TAKE 1 TA BLET BY MOUTH EVERY DAY 2022-11-13 No Data Available vitamin E (dl, acetate) 90 m g (200 unit) capsule TAKE 1 CAPSULE BY MOUTH EVERY DAY 2023-02-01 No Data Available OneTouch Delica Plus Lancet3 3G Miscellaneous No Data Available 2022-11-13 No Data Available Acetaminophen Extra Strength 500 mg Tab TAKE 2 TABLETS BY MOUTH EVERY 6 HOURS NEEDED FOR PAIN OR FEVER 2022-07-31 No Data Available Amitriptyline 25 mg Tab TAKE 1 TABLET BY MOUTH AT BEDTIME 2023-05-13 No Data Available BD ALCOHOL SWABS USE TWICE DAILY DIRECTED 2022-11-13 No Data Available BD Ultra-Fine Short Pen Need le 31 gauge x 5/16 USE ONCE DAILY DIRECTED 2022-11-13 No Data Available OneTouch Ultra Strip USE TO TEST BLOOD S UGAR THREE TIMES DAILY 2023-02-01 No Data Available amLODIPine Besylate 5 mg Tab TAKE 1 TABL ET BY MOUTH DAILY 2023-06-16 No Data Available Uoxrdqhdlz-VXDJ-Mqiihgdx 50/325/40 mg Tab TAKE 1 TABLET BY MOUTH EVERY 8 HOURS NEEDED FOR 30 DAYS 2023-08-04 No Data Available Alcohol Prep 70 % Pad USE TWICE DAILY DIRECTED 2022-11-13 No Data Available Problem List Problem Status Onset Date Resolved Date Major depressive disorder, recurrent, mild Active 2023-08-20 N/A Essential hypertension Active 2023-08-20 N/A Type 2 diabetes mellitus wit h other specified complicationType 2 diabetes mellitus with hyperlipidemia Active 2023-08-20 N/A History of CVA (cerebrovascular accident) Active 2023-10-13 N/A Type 2 diabetes mellitus wit h stable proliferative diabetic retinopathy, bilateral Active 2023-10-13 N/A Social History Sex Female Functional Status Functional Category Effective Dates SUPERVISOR CELL OPERATION assists with cooking, cl eaning, laundry, showering and dressing. Pt reports using assistive device of: 2023-08-20 functional? 2023-09-30 Mental Status Status Date AOx 2023-08-20 Assessments Not Available Plan of Care Not Available
--- OUTSIDE RECORDS SUMMARY | 2024-12-24 15:16 | XMS_ITS | Clinical Summary ---
Author Organization [facility] Address [address] [place] [address] Phone Care Team Providers Care Benefits Technician Name Role Phone Roxanne Roca MD Primary Care Provider [phone] Allergies Active Allergy Reactions Criticality Noted Date Comments Codeine Other (see comments) 01/02/2021 Medications acetaminophen (TYLENOL) 500 MG tablet Take 2 tablets by mouth 4 (four) times a day Active cholecalciferol (VITAMIN D-3) 25 MCG (1000 UT) capsule Take 1 capsule by mouth 1 (one) time each day Active docusate sodium (COLACE) 100 MG capsule Take 1 capsule by mouth 1 (one) time each day Active Dulaglutide (Trulicity) 0.75 MG/0.5ML solution pen-injector Inject 1 pre-filled pen syringe under the skin 1 (one) time per week Active insulin glargine (Lantus SoloStar) 100 UNIT/ML injection Inject 30 Units under the skin 1 (one) time each day Active lactulose (CHRONULAC) 10 GM/15ML solution Active simvastatin (ZOCOR) 10 MG tablet Take 1 tablet by mouth 1 (one) time each day Active Oyster Shell Calcium + D3 500-400 MG-UNIT per tablet Take 1 tablet by mouth 2 (two) times a day 11/28/2020 Active polyethylene glycol (GLYCOLAX) 17 GM/SCOOP powder Take 17 g by mouth 1 (one) time each day 12/25/2020 Active amLODIPine (NORVASC) 5 MG tablet Take 5 mg by mouth 1 (one) time each day Active Turmeric 400 MG capsule Take by mouth Active amitriptyline (ELAVIL) 25 MG tablet Take 25 mg by mouth at bed time 05/15/2022 Active Vitamin E 90 MG (200 UNIT) capsule Take 1 tablet by mouth 1 (one) time each day 06/03/2022 Active chlorthalidone 25 MG tablet Take 0.5 tablets (12.5 mg total) by mouth 1 (one) time each day 15 tablet 3 08/28/2022 Active Active Problems Problem Noted Date Diagnosed Date Incomplete uterine prolapse 12/02/2022 Angina pectoris 12/02/2022 Arthritis 12/02/2022 Chronic constipation 12/02/2022 Diabetes mellitus 12/02/2022 Polyneuropathy due to diabetes mellitus 12/03/19 Disorder of rectum 12/02/2022 Dyslipidemia 12/02/2022 Gallstone 12/02/2022 Gastroesophageal reflux disease 12/02/2022 Hypercholesterolemia 12/02/2022 Incontinence 12/02/2022 Insomnia 12/02/2022 Midline cystocele 12/02/2022 Mild nonproliferative retinopathy due to diabete s mellitus 12/02/2022 Obesity 12/02/2022 Peripheral venous insufficiency 12/02/2022 Skin lesion 12/02/2022 Stage 3a chronic kidney disease 08/28/2022 Hypertension 08/03/2021 Type 2 diabetes mellitus with diabetic nephropat hy 08/03/2021 Acquired renal cystic disease 01/02/2021 Hypertensive disorder 01/02/2021 Renal stone 01/02/2021 Family History Medical History Relation Comments Heart disease Father Hypertension Father Stroke Father Cancer Mother Diabetes Mother Heart disease Mother Hypertension Mother Kidney disease Sibling 1 h/o dialysis Diabetes Sibling 2 Hypertension Sibling 3 Relation Status Comments Father Mother Sibling 1 Sibling 2 Sibling 3 Social History Tobacco Use Types Packs/Day Years Used Date Smoking Tobacco: Never Smokeless Tobacco: Never Tobacco Cessation:Counseling Given: Not Answered Alcohol Use Standard Drinks/Week Comments No 0 (1 standard drink = 0.6 oz pur e alcohol) Comments Unknown Sex and Gender Information Value Date Recorded Sex Assigned at Not on file Legal Sex Female 4:49 PM EST Gender Identity Not on file Sexual Orientation Not on file Last Filed Vital Signs Vital Sign Reading Time Taken Comments Blood Pressure 140/90 08/28/2022 1:54 PM EST Pulse 71 06/24/2022 3:11 PM EDT Temperature - - Respiratory Rate - - Oxygen Saturation 95% 06/24/2022 3:11 PM EDT Inhaled Oxygen Concentration - - Weight 89.2 kg (196 lb 9.6 oz) 06/24/2022 3:11 P M EDT Height 156.2 cm (5' 1.5 ) 11/24/2019 12:00 PM ED T Body Mass Index 36.55 11/24/2019 12:00 PM EDT Plan of Treatment Health Maintenance Due Date Last Done Comments Breast Cancer Screening 1950 Pneumococcal Vaccine: 50+ Ye ars (1 of 2 - PCV) 1970 Colorectal Cancer Screening: Annual FOBT 2000 Colorectal Cancer Screening: Colonoscopy 2000 Colorectal Cancer Screening: Sigmoidoscopy 2000 Diabetes: Hemoglobin A1C 08/03/2021 Diabetes: Ophthalmology Exam 08/03/2021 Diabetes: Pedal Pulse Checked 08/03/2021 Diabetes: Sensory Foot Exam 08/03/2021 Diabetes: Visual Foot Exam 08/03/2021 Influenza Vaccine (Season Ended) 2025 Hepatitis B Vaccine Aged Out No longe r eligible based on patient's age to complete this topic Insurance Care Teams Benefits Technician Relationship Specialty Start Date End Date Roxanne Roca MD [address] [place], [place] PCP - General 09/11/20
== END 2024-12-24 15:03 | disposition home or self-care (01) ==
LOC: HO.HKA 14:35
PROVIDERS: PCP Internal Medicine; Visit Provider Internal Medicine Nephrology
DX: N18.31 Chronic kidney disease, stage 3a (principal); E11.21 Type 2 diabetes mellitus with diabetic nephropathy; N28.1 Cyst of kidney, acquired; I10 Essential (primary) hypertension
CPT/HCPCS: 99214

== ENCOUNTER → 2024-12-24 14:34 | Outpatient (BNVA) | payer OTHER, SELFPAY | PROVIDERS: PCP Internal Medicine; Visit Provider Internal Medicine Nephrology | DX: E11.22 Type 2 diabetes mellitus with diabetic chronic kidney disease (principal); E11.21 Type 2 diabetes mellitus with diabetic nephropathy; I12.9 Hypertensive chronic kidney disease with stage 1 through stage 4 chronic kidney disease, or unspecified chronic kidney disease; E78.5 Hyperlipidemia, unspecified; N18.31 Chronic kidney disease, stage 3a; N28.1 Cyst of kidney, acquired; Z79.4 Long term (current) use of insulin | CPT/HCPCS: 99212 ==

== ENCOUNTER 2025-01-19 09:32 | Outpatient (REF) | payer OTHER, SELFPAY ==
--- OUTSIDE RECORDS SUMMARY | 2025-01-19 10:47 | XMS_ITS | Encounter Summary ---
Author Organization [employer] Address [address] [place] [address] Care Team Providers Care Associate Director Data & Analytics Name Role Phone Unavailable Primary Care Provider Unavailabl e Reason for Visit * Reason Onset Date Comments appt and referrral 04/08/2023 Encounter Details Date Type Department Care Team (Late st Contact Info) Description 04/08/2023 Telephone C ADULT DENTAL [address] [place] [address] Edgardo Fox DMD [address] [place] [address] appt and referrral Social History Tobacco Use Types Packs/Day Years Used Date Smoking Tobacco: Never Assessed Comments Unknown Sex and Gender Information Value Date Recorded Sex Assigned at Female 07/01/2022 10:26 AM EDT Legal Sex Female 10:26 AM EDT Gender Identity Female 07/01/2022 10:26 AM EDT Sexual Orientation Straight 07/01/2022 10 :26 AM EDT documented as of this encounter Miscellaneous Notes * Telephone Encounter - Phyllis Covarrubias - 04/08/2023 1:25 PM EDT Patient is looking to have appt with Oral Surgeon scheduled. She was last seen 04/09/2022 although there is a referral scanned in chart for [facility] on 03/29/2022. She just had herappt today and was calling in because they stated she had to follow up with the Oral Surgeon. However while on the line with her, the front of house manager was charging her for the visit. She stated that she gave them her insurance and they explained to her as she was explainign to me that they did not acccept miriam insurance . She questioned as to why she was rferred to an office that does not take her insurance. Explained to patient that we do not handle insurance contracts with any office we refer to. Protcol would be that the office would collect insurance information upon scheduling appt and if theydo not accept the insurance patient should be informed and the patient could decide whether they want to be seen in that facility or not. She said she that they never asked her for this information and that she didn't have any money and wanted me to speak with the office . I declined as we do not have affiliation with their practice and do not handle their insurance practices. She was upset that she was referred to an office that was going to charge her for the visit as they did not take her insurance . I did clarify to the patient that this detail is information that is handled at the officethat she is making an appt with we do not handle insurances for other facilities documented in this encounter Plan of Treatment Not on file documented as of this encounter Visit Diagnoses Not on filedocumented in this encounter
--- OUTSIDE RECORDS SUMMARY | 2025-01-19 10:47 | XMS_ITS | Clinical Summary ---
Author Organization [facility] Address [address] [place] [address] Phone Care Team Providers Care Territory Sales Manager Medical Name Role Phone Roxanne Roca MD Primary Care Provider [phone] Allergies Active Allergy Reactions Criticality Noted Date [...] to complete this topic Insurance Care Teams Territory Sales Manager Medical Relationship Specialty Start Date End Date Roxanne Roca MD [address] [place], [place] PCP - General 09/11/20
--- OUTSIDE RECORDS SUMMARY | 2025-01-19 10:47 | XMS_ITS | Encounter Summary ---
Author Organization [employer] [facility] Address [address] [place] [address] Care Team Providers Care Washer And Crusher Tender Name Role Phone Unavailable Primary Care Provider Unavailabl e Encounter Details Date Type Department Care Team (Latest Contact Info) Description 04/09/2022 Abstract [facility] CONVERSIONS Dental, Provider, DDS Social History Tobacco Use Types Packs/Day Years Used Date Smoking Tobacco: Never Assessed Comments Unknown Sex and Gender Information Value Date Recorded Sex Assigned at Female 07/01/2022 10:26 AM EDT Legal Sex Female 10:26 AM EDT Gender Identity Female 07/01/2022 10:26 AM EDT Sexual Orientation Straight 07/01/2022 10 :26 AM EDT documented as of this encounter Plan of Treatment Not on file documented as of this encounter Visit Diagnoses Not on filedocumented in this encounter
--- OUTSIDE RECORDS SUMMARY | 2025-01-19 10:47 | XMS_ITS ---
Author Name Angelo JUSTIN, RN, RD, Ebony Address [address] [place] [address] Phone [phone] [facility] Care Team Providers Care Perforator Operator Name Role Phone Ebony Stephens Unavailable [phone] Reason for Referral Not Available Allergies, adverse [...] BY MOUTH DAILY 2023-06-16 No Data Available Guonmcflfb-QFIJ-Jzkynkbg 50/325/40 mg Tab TAKE 1 TABLET BY [...] Female Functional Status Functional Category Effective Dates SWITCHER assists with cooking, cl eaning, laundry, showering and dressing. Pt reports using assistive device of: 2023-08-20 functional? 2023-09-30 Mental Status Status Date AOx 2023-08-20 Assessments Not Available Plan of Care Not Available
--- OUTSIDE RECORDS SUMMARY | 2025-01-19 10:47 | XMS_ITS | Clinical Summary ---
Author Organization [facility] Address [address] [place] [address] Care Team Providers Care Plant Scientist Name Role Phone Unavailable Primary Care Provider Unavailabl e Allergies Active Allergy Reactions Criticality Noted Date Comments Acetaminophen 02/02/2014 Codeine 08/09/2016 Other reaction(s): Hives/Skin Rash Medications amitriptyline (Elavil) 25 MG tablet Take 25 mg by mouth at bedtime. 3 Active Acetaminophen Extra Strength 500 MG tablet TAKE 2 TABLETS BY MOUTH EVERY 6 HOURS NEEDED FOR PAIN OR FEVER 3 Active amLODIPine (Norvasc) 5 MG tablet Take 5 mg by mouth in the morning. 3 Active hydroCHLOROthi azide (HYDRODiuril) 12.5 MG tablet Take 12.5 mg by mouth in the morning. 3 Active Lantus SoloStar 100 UNIT/ML pen INJECT 40 UNITS SUBCUTANEOUSLY DAILY IN THE EVENING 3 Active Vitamin E 90 MG (200 UNIT) capsule Take 1 capsule by mouth in the morning. 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 Social History Tobacco Use Types Packs/Day Years Used Date Smoking Tobacco: Never Smokeless Tobacco: Never Tobacco Cessation:Counseling Given: Not Answered Alcohol Use Standard Drinks/Week Comments Never 0 (1 standard drink = 0.6 oz pur e alcohol) Comments Unknown Sex and Gender Information Value Date Recorded Sex Assigned at Female 07/01/2022 10:26 AM EDT Legal Sex Female 10:26 AM EDT Gender Identity Female 07/01/2022 10:26 AM EDT Sexual Orientation Straight 07/01/2022 10 :26 AM EDT Last Filed Vital Signs Vital Sign Reading Time Taken Comments Blood Pressure 138/76 07/03/2023 3:13 PM EDT Pulse 74 07/03/2023 3:13 PM EDT Temperature - - Respiratory Rate - - Oxygen Saturation - - Inhaled Oxygen Concentration - - Weight - - Height - - Body Mass Index - - Plan of Treatment Health Maintenance Due Date Last Done Comments CT Colonography 1951 Colonoscopy 1951 Colorectal Cancer Screening 1951 Depression Screening 1951 FIT DNA/Cologuard 1951 FIT 1951 FOBT 1951 Lipid Panel 1951 SDOH Screening 1951 Sigmoidoscopy 1951 Alcohol/Substance Use Screening 1963 Hepatitis C Screening 1969 Mammogram 1991 Zoster Vaccines (1 of 2) 2001 RSV Patients and Patients Aged 60 years or older (1 - Risk 60-74 years 1-dose series) 2011 DTaP/Tdap/Td Vaccines (1 - Tdap) 07/11/2016 07/10/2016 Pneumococcal Vaccine: 50+ Years (2 of 2 - PPSV23) 07/17/2016 07/17/2015 Dental Oral Exam 10/26/2023 04/24/2023, 05/2022, 03/31/2015 Dental Prophylaxis 01/02/2024 07/03/2023, 04/09/2022 Dental X-Ray: Bitewings 04/25/2024 04/24/20 23, 04/09/2022, 03/29/2022, Additional history exists COVID-19 Vaccine ( season) 2024 Influenza Vaccine (#1) 2024 07/10/2016, 2014 Tobacco Screening 07/03/2024 07/03/2023 Dental X-Ray: Full Mouth 04/10/2025 04/09/2022, 03/03 HIB Vaccines Aged Out No longer eligi ble based on patient's age to complete this topic HPV Vaccines Aged Out No longer eligi ble based on patient's age to complete this topic Hepatitis A Vaccines Aged Out No long er eligible based on patient's age to complete this topic Hepatitis B Vaccines Aged Out No long er eligible based on patient's age to complete this topic IPV Vaccines Aged Out No longer eligi ble based on patient's age to complete this topic Meningococcal B Vaccine Aged Out No l onger eligible based on patient's age to complete this topic Meningococcal Vaccine Aged Out No manolo adolfo eligible based on patient's age to complete this topic RSV under 20 months Aged Out No longe r eligible based on patient's age to complete this topic Rotavirus Vaccines Aged Out No longer eligible based on patient's age to complete this topic Procedures Procedure Name Priority Date/Time Associated Diagnosis Comments PROPHYLAXIS - ADULT Routine 07/03/2023 3 :00 PM EDT Periodontal disease Dental calculus BITEWINGS - 4 RADIOGRAPHIC IMAGES Routine 04/24/2023 2:30 PM EDT PERIODIC ORAL EVALUATION - ESTABLISHED PATIENT Routine 04/24/2023 2:30 PM EDT INTRAORAL - COMPLETE SERIES OF RADIOGRAPHIC IMAGES Routine 04/09/2022 12:00 AM EDT from Last 3 Months or Most Recently Relevant to Health Maintenance Insurance [facility]
[2025-01-19 11:17] LABS: Alanine Aminotransferase 21 U/L (0-31); Albumin Level 4.3 g/dL (3.5-5.0); Alkaline Phosphatase 64 U/L (39-117); Anion Gap 13 (12-20); Aspartate Amino Transferase 30 U/L (5-31); Bilirubin Total 0.4 mg/dL (0.0-1.0); Blood Urea Nitrogen 23 mg/dL (9-16); Calcium 9.8 mg/dL (8.4-10.2); Carbon Dioxide 29 mmol/L (22-29); Chloride 107 mmol/L (96-108); Cholesterol 132 mg/dL (<200); Estimated Glomerular Filt Rate 56; Glucose Fasting 106 mg/dL (60-99); HDL Cholesterol 55 mg/dL (>40); LDL Cholesterol Calculated 65 mg/dL (<100); Potassium 4.1 mmol/L (3.3-5.1); Sodium 145 mmol/L (135-145); Total Protein 8.1 g/dL (6.5-8.0); Triglycerides 62 mg/dL (<150)
[2025-01-19 11:29] LABS: Vitamin D 25-OH Total 24.3 ng/mL (>30)
[2025-01-19 11:33] LABS: Creatinine Urine 97.12 mg/dL; Protein/Creatinine Ratio, Ur 0.64 (<0.2); Total Protein Urine Random 62 mg/dL (<12)
[2025-01-19 11:35] LABS: Creatinine Urine 98.47 mg/dL; Microalbum/Creatinine Ratio Ur 375.7 ug/mg cr (<30)
== END 2025-01-19 09:33 | disposition home or self-care (01) ==
LOC: HO.LAB 09:32
PROVIDERS: Internal Medicine Nephrology; PCP Internal Medicine; Visit Provider Internal Medicine
DX: E11.65 Type 2 diabetes mellitus with hyperglycemia (principal); E11.21 Type 2 diabetes mellitus with diabetic nephropathy; N18.31 Chronic kidney disease, stage 3a; N28.1 Cyst of kidney, acquired; E78.5 Hyperlipidemia, unspecified; E55.9 Vitamin D deficiency, unspecified; Z79.4 Long term (current) use of insulin
CPT/HCPCS: 36415; 80053; 80061; 82043; 82306; 82570; 84156

== ENCOUNTER 2025-01-25 13:31 | Outpatient (AMB) | payer OTHER, SELFPAY ==
--- OUTSIDE RECORDS SUMMARY | 2025-01-25 13:38 | XMS_ITS | Clinical Summary ---
Author Organization [facility] Address [address] [place] [address] Phone Care Team Providers Care Guide Dog Mobility Instructor Name Role Phone Roxanne Roca MD Primary Care Provider [phone] Allergies Active Allergy Reactions Criticality Noted Date [...] to complete this topic Insurance Care Teams Guide Dog Mobility Instructor Relationship Specialty Start Date End Date Roxanne Roca MD [address] [place], [place] PCP - General 09/11/20
--- NOTE | 2025-01-25 13:41 | A.OFFPC_ITS ---
Vital Signs 01/25/25 13:43 Height 5 ft 3 in Weight 198 lb BMI 35.1 BP 142/86 H Blood Pressure Location Lt brachial Intake Visit Reasons: follow up - see comments Sales Performance Manager Required: No Accompanied by: Self / Same As Patient Allergies codeine [CODEINE] Allergy (Intermediate, Verified 01/25/25 13:57) RASH Seasonal Allergies Allergy (Mild, Verified 01/25/25 13:57) itchy eye Medication List - Last Reconciled 01/25/25 by Roxanne Glaser MD acetaminophen 1,000 mg (2 x 500 mg) PO Q6H PRN alcohol swabs (Alcohol Prep Pads) 1 pad topical BID 90 days amitriptyline 50 mg PO BEDTIME amlodipine 5 mg PO DAILY 90 days ascorbate calcium (vitamin C) 500 mg PO DAILY 90 days blood pressure test kit-medium As directed blood sugar diagnostic (Rail YardTouch Ultra Test strips) USE 1 TO TEST BLOOD SUGAR THREE TIMES DAILY blood sugar diagnostic (Accu-Chek Isabela Plus test strips) twice a day blood-glucose meter (PowerMessage Ultra2 Meter kit) As directed nzugttcxcc-gytoowoctocfs-xhni 50-325-40 mg 1 tab PO Q8H PRN calcium carbonate-vitamin D3 500 mg-10 mcg (400 unit) (Oyster Shell Calcium- Vitamin D3) 1 tab PO BID 90 days calcium polycarbophil (Fiber-Lax) 1,250 mg (2 x 625 mg) PO DAILY 90 days docusate sodium (Colace) 100 mg PO BID 30 days empagliflozin (Jardiance) 25 mg PO DAILY 90 days estradiol 0.01%(0.1mg/gram) Apply 1 in thinly to labial area and vaginal introitus 30 days glucose (Dex4 Glucose Quick Dissolve) 16 grams (4 x 4 gram) PO Q15M PRN hydrochlorothiazide 12.5 mg PO DAILY 90 days hydroquinone 4% 1 appl topical DAILY 30 days insulin degludec (Tresiba FlexTouch U-100 insulin) 54 units (0.54 mL) subcut BEDTIME 90 days lactulose 15 mL PO BEDTIME 90 days lancets Use 1 lancet three times a day magnesium oxide 500 mg PO DAILY 90 days melatonin 3 mg PO BEDTIME PRN methylcellulose (laxative) (Fiber Laxative (methylcellulose)) 500 mg PO BID multivitamin 1 tab PO DAILY nystatin 1 appl topical DAILY 30 days pen needle, diabetic (1st Tier Unifine Pentips Plus) Use 1 pen needle once a day polyethylene glycol 3350 (Miralax) 17 grams PO DAILY rosuvastatin 40 mg PO DAILY 90 days vitamin E (dl, acetate) 90 mg PO DAILY 90 days Tobacco use date assessed: 01/25/25 Fall risk assessment: No Falls in past year Last assessed Fall Risk: 01/25/25 Dental Screening Dental Screen Date: 01/25/25 Did you have a dental visit in the last 12 months?: Yes Did you have a dental problem in the last 6 months where you did not have access to dental care?: No Was dental information given to patient?: Patient has dentist HPI HPI Comments History of Present Illness Details The patient is a 74-year-old female presenting with proteinuria concerns related to previously diagnosed diabetic nephropathy and discusses management and surgical plans for uterine prolapse. She has a history of Type 2 Diabetes Mellitus as evidenced by an HbA1c of 9%, chronic kidney disease with stable renal function but elevated protein levels, and well-managed hyperlipidemia. Recent diabetic retinopathy findings have affected her vision. She currently adheres to a hypertension and hyperlipidemia medication regimen. Despite stable cholesterol and renal function, she struggles with notable fatty liver, constipation, urinary incontinence, and a prolapsed uterus. These issues are intertwined with her planned urogynecological surgical procedures set for next months, expected to rectify organ prolapse and potentially assist in the management of her more pressing symptoms. [facility]LY [facility], [facility] Medical History (Updated 01/25/25 @ 14:12 by Roxanne Glaser MD) Cerebral venous infarction, chronic Uncontrolled type 2 diabetes mellitus with hyperglycemia, with long-term current use of insulin Dyslipidemia Headache Obesity due to excess calories Insomnia Diabetic polyneuropathy associated with type 2 diabetes mellitus Diabetic nephropathy associated with type 2 diabetes mellitus Mild nonproliferative diabetic retinopathy associated with type 2 diabetes mellitus Gallstones Chronic constipation Abdominal pain Dyslipidemia Skin lesion Venous (peripheral) insufficiency Arthritis Diabetes GERD (gastroesophageal reflux disease) Hx of simple renal cyst Hx of renal calculi Asthma Angina pectoris Elevated cholesterol Surgical History History of right cataract surgery H/O colonoscopy History of varicose veins History of tubal ligation Family History Father Stroke Mother Cancer Brother Mental health disorder Social History Household Members: None Household Members Other:: Lives alone Housing: Apartment Alcohol intake: never Patient Tobacco Use Status: Former Tobacco user Tobacco use type: Cigarette e-Cigarette/Vaping Use: Never Used Second Hand Smoke Exposure: No service: No Current occupational status: disabled Cognitive needs: No Hearing needs: No Vision needs: Yes Female Reproductive History Menstrual Age of Menarche: 13 Questionnaire PHQ-9 Over the last 2 weeks, how often have you been bothered by any of the following problems? 1. Little interest or pleasure in doing things: several days 2. Feeling down, depressed, or hopeless: several days 3. Trouble falling or staying asleep, or sleeping too much: nearly every day 4. Feeling tired or having little energy: nearly every day 5. Poor appetite or overeating: not at all 6. Feeling bad about yourself - or that you are a failure or have let yourself or your family down: not at all 7. Trouble concentrating on things, such as reading the newspaper or watching television: not at all 8. Moving or speaking so slowly that other people could have noticed. Or the opposite - being so fidgety or restless that you have been moving around a lot more than usual: not at all 9. Thoughts that you would be better off or of hurting yourself in some way: not at all Total score: 8 Depression Screening Interpretation: Positive Depression Screening Follow-up: Existing condition and Follow-up Visit Requested Depression Screening Done: Yes 56792 - PHQ-9 Billing: Yes Source: Developed by Drs. Cyril Mesa, Yvette Granados, Norberto Mcrae and colleagues, with an educational irene from [employer]. Thrive Questionnaire Date Thrive assessed: 01/25/25 I am a: Patient What is your living situation today?: I have a steady place to live Within the past 12 months, did the food you bought not last and you didn't have the money to get more?: Never true Within the past 12 months, did you worry whether your food would run out before you got money to buy more?: Never true Do you have trouble paying for medicines?: No Do you have trouble getting transportation to medical appointments?: No Do you have trouble paying your heating and electricity bill?: No Do you have trouble taking care of your child, family member or friend?: No Do you have trouble with day-to-day activities such as bathing, preparing meals, shopping, managing finances, etc.?: No Are you currently unemployed and looking for a job?: No Are you interested in more education?: No Please select the resources that you would like help with: None Currently or been in a relationship where the following occur: No concerns reported THRIVE Score: 0 AUDIT C Alcohol Use Questionnaire (AUDIT-C) 1. How often do you have a drink containing alcohol?: Never Total Score: 0 DINESH-7 AMB Questionnaire DINESH-7 Date DINESH - 7 assessed: 01/25/25 Feeling nervous, anxious, or on edge: 1 = Several days Not being able to stop or control worryin = Not at all Worrying too much about different things: 1 = Several days Trouble relaxin = Not at all Being so restless that it is hard to sit still: 0 = Not at all Becoming easily annoyed or irritable: 1 = Several days Feeling afraid as if something awful might happen: 0 = Not at all Total DINESH-7 score (0-4 normal; 5-9 mild; 10-14 moderate; 15-21 severe): 3 Source: Developed by Drs. Cyril Mesa, Yvette Granados, Norberto Mcrae and colleagues, with an educational irene from [employer]. DINESH-7 Assessment Billing DINESH-7 Assessment Tool: DINESH-7 Assessment 51980 Review of Systems Const All systems reviewed & are unremarkable except as noted in HPI and below Card Denies chest pain at rest, Denies chest pain with activity, Denies edema, Denies irregular heart rhythm, Denies claudication, Denies dyspnea, Denies dyspnea on exertion, Denies orthopnea, Denies paroxysmal nocturnal dyspnea and Denies slow heart rate Resp Denies cough, Denies dyspnea and Denies dyspnea on exertion Denies urinary incontinence, Denies urinary hesitancy and Denies urinary urgency Musc Denies atrophy, Denies deformity and Denies limited range of motion Physical exam (Primary Care) Vital Signs: Last Vital Signs BP 142/86 H 01/25/25 13:43 BMI result Body Mass Index 35.1 BMI Assessment/Plan discussion: High BMI High, discussed plan: lifestyle, weight reduction, dietary and physical activity Tobacco/Smoking Status: Tobacco use Status Tobacco use date assessed 01/25/25 01/25/25 13:49 Patient Tobacco Use Status Former Tobacco user 01/25/25 13:47 Tobacco use type Cigarette 01/25/25 13:47 e-Cigarette/Vaping Use Never Used 01/25/25 13:47 PHQ-9: PHQ-9 Score PHQ-9: Total score 8 01/25/25 13:50 Depression Screening Interpretation: Positive Depression Screening Follow-up: Existing condition and Follow-up Visit Requested Thrive Assessment: Date of Thrive Assessment Date Thrive assessed 01/25/25 01/25/25 13:47 Currently or been in a relationship where the following occur: No concerns reported Resp Effort & Inspection: normal respiratory effort Auscultation: clear to auscultation bilaterally Cardio Jugular venous distension: no JVD Rate: regular rate Rhythm: regular rhythm Heart sounds: S1 normal heart sound present and S2 normal heart sound present Extrem General: Yes full ROM Results AMB Hemoglobin A1c AMB Hemoglobin A1c 9.0 % Last Edit by ECSIA Johnson on 01/25/25 13:5 1 Results Reviewed Results Reviewed: Laboratory Last Values Hgb A1c (Clinic) 9.0 % (4.0-6.0) H 01/25/25 13:36 Coding Level of Care Code Est Pt Level 4 (87314) Complex EM visit Add On G2211 Diagnoses Uncontrolled type 2 diabetes mellitus with hyperglycemia, with long-term current use of insulin E11.65; Z79.4 Stage 3a chronic kidney disease N18.31 Chronic kidney disease stage 3 subtype: stage 3a (GFR 45-59) Osteopenia M85.80 Diabetic nephropathy associated with type 2 diabetes mellitus E11.21 Diabetes mellitus type: type 2 Dyslipidemia E78.5 Essential hypertension I10 Hypertension type: essential hypertension Diabetic retinopathy E11.319 Microalbuminuria R80.9 Additional Codes PHQ-9 - 70105 - PHQ-9 Billing: Yes ([id number]) DINESH-7 Assessment Billing - DINESH-7 Assessment Tool: DINESH-7 Assessment [id number] ([id number]) Time Spent (min) 23 Assessment & Plan Assessment & Plan (1) Uncontrolled type 2 diabetes mellitus with hyperglycemia, with long-term current use of insulin: Code(s): E11.65 - Type 2 diabetes mellitus with hyperglycemia; Z79.4 - terminal clerk (current) use of insulin Category: Medical (2) CKD (chronic kidney disease) stage 3, GFR 30-59 ml/min: Code(s): N18.30 - Chronic kidney disease, stage 3 unspecified Category: Medical Qualifiers: Chronic kidney disease stage 3 subtype: stage 3a (GFR 45-59) Qualified Code(s): N18.31 - Chronic kidney disease, stage 3a (3) Osteopenia: Code(s): M85.80 - Other specified disorders of bone density and structure, unspecified site Category: Medical (4) Diabetic nephropathy: Code(s): E11.21 - Type 2 diabetes mellitus with diabetic nephropathy Category: Medical Qualifiers: Diabetes mellitus type: type 2 Qualified Code(s): E11.21 - Type 2 diabetes mellitus with diabetic nephropathy (5) Dyslipidemia: Code(s): E78.5 - Hyperlipidemia, unspecified Category: Medical (6) HTN (hypertension): Code(s): I10 - Essential (primary) hypertension Category: Medical Qualifiers: Hypertension type: essential hypertension Qualified Code(s): I10 - Essential (primary) hypertension (7) Diabetic retinopathy: Code(s): E11.319 - Type 2 diabetes mellitus with unspecified diabetic retinopathy without macular edema Category: Medical (8) Microalbuminuria: Code(s): R80.9 - Proteinuria, unspecified Category: Medical Plan The patient presents with various chronic conditions, most critically Type 2 Diabetes Mellitus associated with recent 9% HbA1c levels and chronic kidney disease affecting renal protein levels. Management will involve reevaluation of medication, potentially introducing JASWANT inhibitors or ARBs. Surgical plans for bladder and uterine prolapse have been confirmed for April. Pre- and postoperative management, including laxative use, will address documented constipation. Dietary modifications and consistent monitoring of weight supported by endocrinology consultations underline the broader approach to improved health outcomes. A comprehensive plan continues to follow medical recommendations for existing conditions like hyperlipidemia with proactive dietary adjustments and pharmaceutical adherence, alongside pertinent medical reviews for diabetic retinopathy. Patient was informed and verbally consented to the use of an ambient scribe for clinic note documentation during this visit. During the visit, I discussed proteinuria associated with diabetic nephropathy, urging a focus on existing treatment regimens, contemplating potential JASWANT inhibitors or ARBs, and acknowledging previously managed kidney evaluations affirming stable function. Regarding diabetic retinopathy, further evaluations will address any vision discrepancies. Surgical plans anticipated for April center on addressing uterine prolapse, including possible improvement of urinary incontinence and addressing physical discomfort, employing pre- and post- surgical management protocols and laxative use. The patient was informed of lifestyle and dietary changes crucial for weight management while maintaining essential treatment adherence for existing chronic conditions. Guidance on endocrinology follow-ups emphasizes integrated care. Orders: Orders AMB Hemoglobin A1c Today E11.65 - Type 2 diabetes mellitus with hyperglycemia, Z79.4 - terminal clerk (current) use of insulin Lipid Panel 4 Months E78.5 - Hyperlipidemia, unspecified Microalbumin, Random (w Creat) 4 Months R80.9 - Proteinuria, unspecified Vitamin D 25-OH Total 4 Months E55.9 - Vitamin D deficiency, unspecified Comprehensive [place]. Panel Fast 4 Months E11.65 - Type 2 diabetes mellitus with hyperglycemia, Z79.4 - terminal clerk (current) use of insulin Referrals Endocrinology Referral E11.65 - Type 2 diabetes mellitus with hyperglycemia, Z79.4 - terminal clerk (current) use of insulin Medications: New lisinopril 5 mg PO DAILY 90 days 90 tabs 1RF Refilled insulin degludec (Tresiba FlexTouch U-100 insulin) 54 units (0.54 mL) subcut BEDTIME 90 days 48.6 mL 1RF Patient Instructions: - Continue current diabetes medication regimen. - Watch for progress in vision changes due to diabetic retinopathy. - Plan for urogynecological surgery in April, follow pre-surgery instructions. - Ensure regular laxative use post-surgery to prevent constipation. - Follow dietary guidelines to control blood sugar and lipid levels. - Monitor weight closely and consult endocrinology for weight management. - Continue with cholesterol medication regularly. - Maintain awareness of any new or worsening symptoms and seek prompt care if necessary. - Schedule follow-ups as recommended.
[2025-01-25 13:43] VITALS: BP 142/86; BMI 35.1
== END 2025-01-25 14:14 | disposition home or self-care (01) ==
LOC: HO.HMCH 13:32
PROVIDERS: PCP Internal Medicine; Visit Provider Internal Medicine
DX: I12.9 Hypertensive chronic kidney disease with stage 1 through stage 4 chronic kidney disease, or unspecified chronic kidney disease (principal); E11.65 Type 2 diabetes mellitus with hyperglycemia; Z79.4 Long term (current) use of insulin; N18.31 Chronic kidney disease, stage 3a; E11.21 Type 2 diabetes mellitus with diabetic nephropathy; E11.319 Type 2 diabetes mellitus with unspecified diabetic retinopathy without macular edema; M85.80 Other specified disorders of bone density and structure, unspecified site; E78.5 Hyperlipidemia, unspecified; R80.9 Proteinuria, unspecified

== ENCOUNTER → 2025-01-25 13:31 | Outpatient (BNVA) | payer OTHER, SELFPAY | PROVIDERS: PCP Internal Medicine; Visit Provider Internal Medicine | DX: E11.65 Type 2 diabetes mellitus with hyperglycemia (principal); I12.9 Hypertensive chronic kidney disease with stage 1 through stage 4 chronic kidney disease, or unspecified chronic kidney disease; E11.22 Type 2 diabetes mellitus with diabetic chronic kidney disease; N18.31 Chronic kidney disease, stage 3a; Z79.4 Long term (current) use of insulin; E11.21 Type 2 diabetes mellitus with diabetic nephropathy; E78.5 Hyperlipidemia, unspecified; E11.319 Type 2 diabetes mellitus with unspecified diabetic retinopathy without macular edema; R80.9 Proteinuria, unspecified | CPT/HCPCS: 83036; 96127; 99212 ==

== ENCOUNTER 2025-02-09 13:34 | Outpatient (AMB) | payer OTHER, SELFPAY ==
--- NOTE | 2025-02-09 13:30 | A.OFFVIS_ITS ---
Vital Signs 02/09/25 13:42 Height 5 ft 3 in Weight 200 lb 9.93 oz BMI 35.5 BP 138/58 L Blood Pressure Location Rt brachial Position Sitting Pulse 59 Pulse Source Pulse Oximeter Pulse Oximetry (%) 98 Oxygen Delivery Method Room Air Intake Visit Reasons: Diabetes Type 2 Intake Note: NEW Patient presents today to establish treatment for Type 2 Diabetes Mellitus: Last Diabetic eye exam was on: 12/01/2024, [facility] Last Podiatry exam was on: Patient does not see a Rewriter Most recent HbA1c: 9.0%, 01/25/2025 Random Glucose- 218 mg/dL, Today Steam Fitter Supervisor Maintenance Required: Yes Steam Fitter Supervisor Maintenance Language: Cold Food Packer Services: Steam Fitter Supervisor Maintenance Offered & Declined Accompanied by: Self / Same As Patient Allergies codeine [CODEINE] Allergy (Intermediate, Verified 02/09/25 13:45) RASH Seasonal Allergies Allergy (Mild, Verified 02/09/25 13:45) itchy eye HPI Comments Details: This is a 74-year-old female with a past medical history of CKD stage 3, NAFLD, type 2 diabetes, obesity, dyslipidemia and hypertension presenting for diabetic management. She was last seen in the endocrinology department by Ashleigh MARKS 06/25. She did not bring her glucometer to the visit. She reports that blood glucose has been around 100-140s in the morning. Her blood sugars are running higher in the evening 200-240. Denies hypoglycemia. Her lowest glucose reading was 74. Hemoglobin A1c 9% on 01/25/2025 Patient was previously on Lantus which was ineffective, patient has declined metformin and glipizide in the past as she believes they cause cancer. Declines freestyle Thomas GLP 1 agonists are contraindicated: gallstones. Current medication regimen: Tresiba 54 units Increased 3 weeks ago by PCP Jardiance 25 mg She has a h/o fatty liver Hypoglycemia symptoms: none Hyperglycemia symptoms: none Eye exam: NE Retina with Dr. Jarrett. Microvascular complications: neuropathy, nephropathy (CKD stage 3, microalbumin), retinopathy. Patient followed by Nephrology for diabetic nephropathy. Macrovascular complications: none Hypertension: treated with amlodipine 5 mg, hydrochlorothiazide 12.5 mg. She will not take ACEs or arbs because she says that they cause cancer. Hyperlipidemia: treated with rosuvastatin 40 mg. LDL at goal 65 Saw nutrition 2020 PENDING SALE TO [facility] Medical History Cerebral venous infarction, chronic Uncontrolled type 2 diabetes mellitus with hyperglycemia, with long-term current use of insulin Dyslipidemia Headache Obesity due to excess calories Insomnia Diabetic polyneuropathy associated with type 2 diabetes mellitus Diabetic nephropathy associated with type 2 diabetes mellitus Mild nonproliferative diabetic retinopathy associated with type 2 diabetes mellitus Gallstones Chronic constipation Abdominal pain Dyslipidemia Skin lesion Venous (peripheral) insufficiency Arthritis Diabetes GERD (gastroesophageal reflux disease) Hx of simple renal cyst Hx of renal calculi Asthma Angina pectoris Elevated cholesterol Surgical History History of right cataract surgery H/O colonoscopy History of varicose veins History of tubal ligation Family History Father Stroke Mother Cancer Brother Mental health disorder Social History Household Members: None Household Members Other:: Lives alone Housing: Apartment Alcohol intake: never Patient Tobacco Use Status: Former Tobacco user Tobacco use type: Cigarette e-Cigarette/Vaping Use: Never Used Second Hand Smoke Exposure: No service: No Current occupational status: disabled Cognitive needs: No Hearing needs: No Vision needs: Yes Female Reproductive History Menstrual Age of Menarche: 13 Physical Exam Const Other: Absence of Cushingoid features. Absence of acromegalic features. Neck exam reveals nl size thyroid about 15 gms. No thyroid nodules palpable. Heart S1 S2, Reg R/R. No M/R G. Skin exam reveals absence of vitiligo or acanthosis nigrican s. Multiple varicose veins both superficial and deep. No edema Visual exam of foot performed. No ulcerations or open lesions. No inter digit maceration or fissuring. No onychomycosis, no callouses. Sensation intact to monofilament exam. Vibratory sensation is normal with 128 Hz tuning fork. Pulses positive distally Assessment & Plan Assessment & Plan (1) Peripheral Vascular Disease: Code(s): I73.9 - Peripheral vascular disease, unspecified Plan: Rule out obtain RYAN (2) DMII (diabetes mellitus, type 2): Code(s): E11.9 - Type 2 diabetes mellitus without complications Category: Medical Qualifiers: Diabetes mellitus fci insulin use: without balloon artist use Diabetes mellitus complication status: with kidney complications Diabetes mellitus complication detail: with nephropathy Qualified Code(s): E11.21 - Type 2 diabetes mellitus with diabetic nephropathy Plan: 74-year-old type 2 diabetic with retinopathy, nephropathy followed by radiation protection engineer and neuropathy with poor glycemic control. A.m. readings just 20- 30 points off where they should be but later in the day she is running high. Start once daily short-acting insulin. GLP 1 agonist contraindicated due to gallstones. She declines freestyle Thomas The patient had an opportunity to ask questions regarding treatment plan. The patient expressed understanding and agreement with the above treatment plan. The patient is aware they should contact our office by phone for worsening glucose readings or for any low blood sugars which may warrant a change in diabetes medication. Compliance is encouraged with medications and any followup testing/consults which may have been ordered. Orders: Orders US RAYN complete Today I73.9 - Peripheral vascular disease, unspecified Medications: New insulin lispro (Humalog KwikPen (U-100) Insulin) 8 units (0.08 mL) subcut QAM 30 days 3 mL 6RF Changed From pen needle, diabetic (1st Tier Unifine Pentips Plus) Use 1 pen needle once a day 100 ea 0RF E11.9 - Type 2 diabetes mellitus without complications To pen needle, diabetic (1st Tier Unifine Pentips Plus) Use 2 pen needle once a day 100 ea 3RF E11.9 - Type 2 diabetes mellitus without complications Coding Level of Care Code Est Pt Level 4 (92452) Complex EM visit Add On G2211 Diagnoses Peripheral Vascular Disease I73.9 Type 2 diabetes mellitus with diabetic nephropathy, without long-term current use of insulin E11.21 Diabetes mellitus fci insulin use: without balloon artist use Diabetes mellitus complication status: with kidney complications Diabetes mellitus complication detail: with nephropathy Time Spent (min) 30 Comment Time spent reviewing labs/provider notes, face to face, chart doc
[2025-02-09 13:42] VITALS: BP 138/58; PULSE 59; O2SAT 98; BMI 35.5
[2025-02-09 13:52] LABS: Glucose, Whole Blood 218 mg/dL (60-115)
--- OUTSIDE RECORDS SUMMARY | 2025-02-09 15:20 | XMS_ITS | Clinical Summary ---
Author Organization [facility] Address [address] [place] [address] Phone Care Team Providers Care Journeyman Patternmaker Name Role Phone Roxanne Roca MD Primary Care Provider [phone] Allergies Active Allergy Reactions Criticality Noted Date [...] patient's age to complete [place] [address] [place] [address] Care Teams Journeyman Patternmaker Relationship Specialty Start Date End Date Roxanne Roca MD [address] [place], [place] PCP - General 09/11/20
== END 2025-02-09 14:38 | disposition home or self-care (01) ==
LOC: HO.ENCR 13:35
PROVIDERS: PCP Internal Medicine; Visit Provider Nurse Practitioner Adult Health
DX: I73.9 Peripheral vascular disease, unspecified (principal); E11.21 Type 2 diabetes mellitus with diabetic nephropathy
CPT/HCPCS: 99214; G2211

== ENCOUNTER → 2025-02-09 13:34 | Outpatient (BNVA) | payer OTHER, SELFPAY | PROVIDERS: PCP Internal Medicine; Visit Provider Nurse Practitioner Adult Health | DX: E11.21 Type 2 diabetes mellitus with diabetic nephropathy (principal); I73.9 Peripheral vascular disease, unspecified | CPT/HCPCS: 82947; 99212 ==

== ENCOUNTER 2025-03-18 13:34 | Outpatient (AMB) | payer OTHER, SELFPAY ==
--- NOTE | 2025-03-18 13:35 | MHC.OFFVIS ---
Vital Signs 03/18/25 13:40 Height 5 ft 3 in Weight 201 lb 15.095 oz BMI 35.8 BP 128/58 L Blood Pressure Location Rt brachial Position Sitting Pulse 59 Pulse Source Pulse Oximeter Pulse Oximetry (%) 96 Oxygen Delivery Method Room Air Intake Visit Reasons: T2DM Intake Note: Patient present today to follow up on Type 2 Diabetes Mellitus. Last seen by Hawa Madrid on 02/09/2025. Last Diabetic Eye exam: 12/01/2024 [facility] Last Podiatry Visit: Does not see a Supervisor Ride Assembly Random Glucose: 214 mg/dl HgA1C: 9.0% 01/25/2025 Refrigeration Unit Repairer Required: Yes Refrigeration Unit Repairer Language: Polymerization Engineer Services: Refrigeration Unit Repairer Present Refrigeration Unit Repairer Name: Sadi [id number] Information Interpreted: non-clinical & clinical Accompanied by: Self / Same As Patient Allergies codeine (CODEINE) Allergy (Intermediate, Verified 03/18/25 13:41) RASH Seasonal Allergies Allergy (Mild, Verified 03/18/25 13:41) itchy eye HPI Comments Details: This is a 74-year-old female with a past medical history of CKD stage 3, NAFLD, type 2 diabetes, obesity, dyslipidemia and hypertension presenting for diabetic management. She was last seen in the endocrinology department by Hawa Madrid NP. The patient says she is upset about her pharmacy trying to give her the generic of Humalog. She says that she will not pick it up or use it. She also said she is agitated about communication between her specialists and primary care office, and she says that she will no longer have a primary care doctor soon. Hemoglobin A1c 9% on 01/25/2025. She did not bring her glucometer to the visit. She reports that blood glucose has been around 90 to 120 in the morning. At night her blood sugars are between 200-290. Patient reports that she has not had a low blood sugar recently, but in the past she says that her blood sugar was 31, but she did not have any symptoms of low blood sugar. Nonetheless she treated it by having a cookie in juice, and when she rechecked it was normal. Patient was previously on Lantus which was ineffective, patient has declined metformin and glipizide in the past as she believes they cause cancer. She declined a CGM, and she said she will never use 1. GLP 1 agonists are contraindicated: gallstones. Current medication regimen: Tresiba 56 units Jardiance 25 mg She has a h/o fatty liver Hypoglycemia symptoms: none Hyperglycemia symptoms: none Eye exam: NE Retina with Dr. Jarrett. Microvascular complications: neuropathy, nephropathy (CKD stage 3, microalbumin), retinopathy. Patient followed by Nephrology for diabetic nephropathy. Macrovascular complications: none She is requesting referral to vascular surgery again for lower extremity varicose veins which cause aching and discomfort. Multiple referrals have been placed for her including in 2023 by me, but she said she was never called to schedule it. Per chart review she was outreached multiple times in May and June of 2024. ROS: Constitutional: No fevers or chills Neurologic: No headache, dizziness, syncope Cardiovascular: Denies chest pain Respiratory: Denies shortness of breath Physical exam: Constitutional: Alert, in no distress. Respiratory: Clear to auscultation. Cardiovascular: S1 S2 regular. No murmurs. Extremities: Warm and well perfused. No clubbing, cyanosis or edema. Bilateral lower extremity varicose veins. Psychiatric: Appears disinterested in the visit (patient is on her phone at times and filing her finger nails during the visit) [facility] Medical History (Updated 03/18/25 @ 15:29 by KENDRICK Branch) Varicose vein of leg Cerebral venous infarction, chronic Uncontrolled type 2 diabetes mellitus with hyperglycemia, with long-term current use of insulin Dyslipidemia Headache Obesity due to excess calories Insomnia Diabetic polyneuropathy associated with type 2 diabetes mellitus Diabetic nephropathy associated with type 2 diabetes mellitus Mild nonproliferative diabetic retinopathy associated with type 2 diabetes mellitus Gallstones Chronic constipation Abdominal pain Dyslipidemia Skin lesion Venous (peripheral) insufficiency Arthritis Diabetes GERD (gastroesophageal reflux disease) Hx of simple renal cyst Hx of renal calculi Asthma Angina pectoris Elevated cholesterol Surgical History History of right cataract surgery H/O colonoscopy History of varicose veins History of tubal ligation Family History Father Stroke Mother Cancer Brother Mental health disorder Social History Household Members: None Household Members Other:: Lives alone Housing: Apartment Alcohol intake: never Patient Tobacco Use Status: Former Tobacco user Tobacco use type: Cigarette e-Cigarette/Vaping Use: Never Used Second Hand Smoke Exposure: No service: No Current occupational status: disabled Cognitive needs: No Hearing needs: No Vision needs: Yes Female Reproductive History Menstrual Age of Menarche: 13 Physical Exam Vital Signs: Last Vital Signs Pulse 59 03/18/25 13:40 BP 128/58 L 03/18/25 13:40 Pulse Ox 96 03/18/25 13:40 Oxygen Delivery Method Room Air 03/18/25 13:40 BMI result Body Mass Index 35.8 Results Reviewed Results Reviewed: Laboratory Tests 01/19/25 01/19/25 10:02 10:07 Creatinine 0.98 Estimated GFR 56 AST 30 ALT 21 Triglycerides 62 Cholesterol 132 LDL Cholesterol, Calc 65 HDL Cholesterol 55 Microalb/Creat Ratio 375.7 H Assessment & Plan Assessment & Plan (1) Uncontrolled type 2 diabetes mellitus with hyperglycemia, with long-term current use of insulin: Code(s): E11.65 - Type 2 diabetes mellitus with hyperglycemia; Z79.4 - skilled nursing (current) use of insulin Category: Medical Plan: In summary this is a 74-year-old female with a past medical history of uncontrolled type 2 diabetes. The productivity of today's visit was limited by the patient requiring redirection multiple times, and her frustrations may be limiting her ability to engage. See above notes regarding medications that patient has refused. Advised her that I will try to send Humalog brand name only, but the pharmacy may not be able to dispense it if the insurance covers generic since she does not have a history of adverse reaction or contraindication to the generic. Dinner is her largest meal of the day so she will start with 4 units before dinner. We discussed increasing frequency to 3 times daily before meals if she is tolerating it well. Continue Tresiba 56 units nightly. Continue Jardiance 25 mg daily. Declines CGM. Reviewed the importance of glucose monitoring. Reviewed treatment of hypoglycemia, but patient interrupted stating she already knows all of this. Reviewed complications of type 2 diabetes. She is not interested in management with the dietitian at this time, and she did not express interest in discussing a diabetic diet at today's visit. (2) Varicose vein of leg: Code(s): I83.90 - Asymptomatic varicose veins of unspecified lower extremity Category: Medical Plan: Refer anew to vascular surgery. Plan Follow up in 6 weeks. Medications: New lancets (OneTouch Delica Plus Lancet) Use as directed to check blood glucose three times daily. 100 ea 5RF blood sugar diagnostic (OneTouch Verio test strips) Use as directed to check blood glucose three times daily. 100 ea 5RF Changed From insulin lispro (Humalog KwikPen (U-100) Insulin) 8 units (0.08 mL) subcut QAM 30 days 3 mL 6RF To Humalog KwikPen Insulin (insulin lispro) 4 units (0.04 mL) subcut .before dinner 15 mL 6RF 30 days NS Discontinued blood sugar diagnostic (OneTouch Ultra Test strips) Discontinued Reason: Doctor's Order USE 1 TO TEST BLOOD SUGAR THREE TIMES DAILY 100 strips 6RF E11.21 - Type 2 diabetes mellitus with diabetic nephropathy, E11.3299 - Type 2 diabetes mellitus with mild nonproliferative diabetic retinopathy without macular edema, unspecified eye, E11.42 - Type 2 diabetes mellitus with diabetic polyneuropathy Coding Level of Care Code Est Pt Level 5 (68429) Complex EM visit Add On G2211 Diagnoses Uncontrolled type 2 diabetes mellitus with hyperglycemia, with long-term current use of insulin E11.65; Z79.4 Varicose vein of leg I83.90 Time Spent (min) 45 Comment Chart review, direct patient care, completing documentation
--- OUTSIDE RECORDS SUMMARY | 2025-03-18 13:35 | XMS_ITS ---
Author Name Juaquin Murray APRN Address [address] [place] [address] Phone [phone] [facility] Care Team Providers Care Car Wash Attendant Automatic Name Role Phone Valentine Murray Unavailable [phone] Reason for Referral Not Available Allergies, adverse [...] BY MOUTH DAILY 2023-06-16 No Data Available Frbhakcrae-QRKM-Kdfwirqh 50/325/40 mg Tab TAKE 1 TABLET BY MOUTH EVERY 8 HOURS NEEDED FOR 30 DAYS 2023-08-04 No Data Available Alcohol Prep 70 % Pad USE TWICE DAILY DIRECTED 2022-11-13 No Data Available Problem List Problem Status Onset Date Resolved Date Synopsis Major depressive disorder, recurrent, mild Active 2023-08-20 N/A Rx: amitriptylin e -patient educated on the importance of f/u with phycologist and psychiatrist , importance of medication compliance and not to stop abruptly. also patient made aware not to mix medications with alcohol. if patient is presenting an episode of depression to seek medical assistance or to call [facility]. Essential hypertension Active 2023-08-20 N/A Rx : Amlodipine, HCTZContinue taking medication, low salt diet, exercise as tolerable, monitor BP routinely, and continue f/u care with PCP. Type 2 diabetes mellitus with other specified complicationType 2 diabetes mellitus with hyperlipidemia Active 2023-08-20 N/A Rx: Lantus, Rosuvastatin- patient education the importance of diabetic diet, exercise, medication compliance. patient education on hypoglycemia and hyperglycemia signs and symptoms. monitor daily BGL. patient to assess feet daily for any cuts or wounds and to notify pcp or [facility] as soon as possible. History of CVA (cerebrovascular accident) Active 2023-10-13 N/A N/A Type 2 diabetes mellitus with stable proliferative diabetic retinopathy, bilateral Active 2023-10-13 N/A N/A Social History Sex Female Functional Status Functional Category Effective Dates VICE PRESIDENT SALES AND MARKETING assists with cooking, cl eaning, laundry, showering and dressing. Pt reports using assistive device of: 2023-08-20 functional? 2023-09-30 Mental Status Status Date AOx 2023-08-20 Assessments Not Available Plan of Care Not Available
[2025-03-18 13:40] VITALS: BP 128/58; PULSE 59; O2SAT 96; BMI 35.8
[2025-03-18 13:53] LABS: Glucose, Whole Blood 214 mg/dL (60-115)
== END 2025-03-18 14:32 | disposition home or self-care (01) ==
LOC: HO.ENCR 13:34
PROVIDERS: PCP Internal Medicine; Visit Provider Physician Assistant Medical
DX: E11.65 Type 2 diabetes mellitus with hyperglycemia (principal); Z79.4 Long term (current) use of insulin; I83.90 Asymptomatic varicose veins of unspecified lower extremity

== ENCOUNTER → 2025-03-18 13:34 | Outpatient (BNVA) | payer OTHER, SELFPAY | PROVIDERS: PCP Internal Medicine; Visit Provider Physician Assistant Medical | DX: E11.65 Type 2 diabetes mellitus with hyperglycemia (principal); I83.90 Asymptomatic varicose veins of unspecified lower extremity; Z79.4 Long term (current) use of insulin | CPT/HCPCS: 82947; 99212 ==

== ENCOUNTER 2025-03-21 13:30 | Outpatient (AMB) | payer OTHER, SELFPAY ==
[2025-03-21 13:41] VITALS: BMI 36.0
--- NOTE | 2025-03-21 13:41 | A.OFFVIS_ITS ---
VS Expanded 03/21/25 13:41 03/21/25 14:35 Height 5 ft 3 in 5 ft 3 in Weight 203 lb 4.259 oz 203 lb BMI 36.0 36.0 Intake Visit Reasons: T2DM Allergies codeine (CODEINE) Allergy (Intermediate, Verified 03/18/25 13:41) RASH Seasonal Allergies Allergy (Mild, Verified 03/18/25 13:41) itchy eye Nutrition Presentation Details: Pt presents for MNT f/u for T2DM B/L: 10 am Bread with 2 slices hard salami and coffee diet Dinner 4-5 pm rice/beans/salad/chicken , juice fruit reports snacks vary : cookie or fruit or smoothie (ice cream /milk/fruit) Pt brought BG Record: FBG range from 91-119 and bedtime bg ranges from 171-339 mg/d Pt reports cooking with different herbs/spices and salted seasonings- beverages: water but juices mostly with foods wants to know which cereals to buy BS Monitoring Most Recent Diabetes Results: Microalb/Creat Ratio, (<30) 375.7 ug/mg cr H 01/19/25 Cholesterol, (<200) 132 mg/dL 01/19/25 HDL Cholesterol, (>40) 55 mg/dL 01/19/25 Triglycerides, (<150) 62 mg/dL 01/19/25 Creatinine, (0.5-1.4) 0.98 mg/dL 01/19/25 BUN, (9-16) 23 mg/dL H 01/19/25 Sodium, (135-145) 145 mmol/L 01/19/25 Potassium, (3.3-5.1) 4.1 mmol/L 01/19/25 Chloride, (96-108) 107 mmol/L 01/19/25 Carbon Dioxide, (22-29) 29 mmol/L 01/19/25 Calcium, (8.4-10.2) 9.8 mg/dL 01/19/25 AST, (5-31) 30 U/L 01/19/25 ALT, (0-31) 21 U/L 01/19/25 Total Protein, (6.5-8.0) 8.1 g/dL H 01/19/25 Albumin, (3.5-5.0) 4.3 g/dL 01/19/25 NBX-Guvuviq-Vt.Jeor Equation Height: 5 ft 3 in Weight: 203 lb Resting Metabolic Rate: 1399.84 Calculated Activity Level: Sedentary Calories Needed to Maintain Weight: 1679.81 Diagnosis Nutrition problem #1: altered nutrition labs As related to (etiology) #1: excess energy intake As evidenced by (sign/symptom) #1: abnormal lab values (A1c at 9% in 01/2025, bedtime BG > 130 as per Pt's bg record) [facility] Medical History (Updated 03/18/25 @ 15:29 by KENDRICK Branch) Varicose vein of leg Cerebral venous infarction, chronic Uncontrolled type 2 diabetes mellitus with hyperglycemia, with long-term current use of insulin Dyslipidemia Headache Obesity due to excess calories Insomnia Diabetic polyneuropathy associated with type 2 diabetes mellitus Diabetic nephropathy associated with type 2 diabetes mellitus Mild nonproliferative diabetic retinopathy associated with type 2 diabetes mellitus Gallstones Chronic constipation Abdominal pain Dyslipidemia Skin lesion Venous (peripheral) insufficiency Arthritis Diabetes GERD (gastroesophageal reflux disease) Hx of simple renal cyst Hx of renal calculi Asthma Angina pectoris Elevated cholesterol Surgical History History of right cataract surgery H/O colonoscopy History of varicose veins History of tubal ligation Family History Father Stroke Mother Cancer Brother Mental health disorder Social History Household Members: None Household Members Other:: Lives alone Housing: Apartment Alcohol intake: never Patient Tobacco Use Status: Former Tobacco user Tobacco use type: Cigarette e-Cigarette/Vaping Use: Never Used Second Hand Smoke Exposure: No service: No Current occupational status: disabled Cognitive needs: No Hearing needs: No Vision needs: Yes Female Reproductive History Menstrual Age of Menarche: 13 Assessment & Plan Assessment & Plan (1) Uncontrolled type 2 diabetes mellitus with hyperglycemia, with long-term current use of insulin: Code(s): E11.65 - Type 2 diabetes mellitus with hyperglycemia; Z79.4 - [facility] (current) use of insulin Category: Medical Plan: Wt: 92 Kg ( 03/25 ) Est kcal needs as per MSJ: 1700 (40% carb, 30% protein/fat) Est fluid needs as per 25-30 ml/d: 2800 Est prot per day as per 1 g/kg bw: 90 Recommend fiber intake : 8-10 g per day and gradually increase to 25-28 g per day for women and 35-38 g for men or as tolerated Recommend sodium intake per day : less than 2300 mg Educated patient on: ( R = reviewed V = verbalizes understanding N/R = needs review N/A = not applicable * Food sources of carbohydrate, adequate serving sizes and its role in various health conditions: R * Differences between complex carbohydrates a simple carbohydrates, role of fiber in diet: R * Lean protein sources of foods: R * Differences between types of fats and role in diet (mono on saturated fat fatty acids, saturated fatty acids, trans fats): R basic low fat * Food sources of sodium in salt and healthy modifications for heart health in kidney health: R * Vitamins and minerals: R V N/R * Healthy plate method concept: R * Physical activity: Benefits a precaution: R V N/R * Hypoglycemia protocol (rule of 15): R V N/R * Dietary prevention of Hyperglycemia: R Patient Instructions: Work on reducing total sugar in the evening meal and snack : choose low sugar beverages- see option to choose from choose yogurt in place of ice cream as bedtime snack see list of lower sugar cereal options Coding Level of Care Code Nutr Indiv Intake (94908) Diagnoses Uncontrolled type 2 diabetes mellitus with hyperglycemia, with long-term current use of insulin E11.65; Z79.4 Time Spent (min) 30
--- OUTSIDE RECORDS SUMMARY | 2025-03-21 14:14 | XMS_ITS ---
Author Name Juaquin Murray APRN Address [address] [place] [address] Phone [phone] [facility] Care Team Providers Care Quenching Car Operator Name Role Phone Valentine Murray Unavailable [phone] Reason for Referral Not Available Allergies, adverse [...] BY MOUTH DAILY 2023-06-16 No Data Available Bgdpwqxtqz-YKSA-Bhyahias 50/325/40 mg Tab TAKE 1 TABLET BY [...] Female Functional Status Functional Category Effective Dates MUNITIONS HANDLER SUPERVISOR assists with cooking, cl eaning, laundry, showering and dressing. Pt reports using assistive device of: 2023-08-20 functional? 2023-09-30 Mental Status Status Date AOx 2023-08-20 Assessments Not Available Plan of Care Not Available
--- OUTSIDE RECORDS SUMMARY | 2025-03-21 14:15 | XMS_ITS | Clinical Summary ---
Author Organization [facility] Address [address] [place] [address] Phone Care Team Providers Care Medical Territory Manager Name Role Phone Roxanne Roca MD Primary Care Provider [phone] Allergies Active Allergy Reactions Criticality Noted Date [...] Diabetes: Visual Foot Exam 08/03/2021 Influenza Vaccine (#1) 2025 Hepatitis B Vaccine Aged Out No longe r eligible based on patient's age to complete this topic Insurance Care Teams Medical Territory Manager Relationship Specialty Start Date End Date Roxanne Roca MD [address] [place], [place] PCP - General 09/11/20
--- OUTSIDE RECORDS SUMMARY | 2025-03-21 14:15 | XMS_ITS | Encounter Summary ---
Author Organization [employer] Address [address] [place] [address] Care Team Providers Care Spray Drier Name Role Phone Unavailable Primary Care Provider Unavailabl e Reason for Visit * Reason Onset Date Comments appt and referrral 04/08/2023 Encounter Details Date Type Department Care Team (Late st Contact Info) Description 04/08/2023 Telephone C ADULT DENTAL [address] [place] [address] Edgardo Fox DMD [address] [place] [address] appt and referrral Social History Tobacco Use [...] is a referral scanned in chart for [facility] on 03/29/2022. She just had herappt today and was calling in because they stated she had to follow up with the Oral Surgeon. However while on the line with her, the restaurant front manager was charging her for the visit. [...]
[2025-04-05 12:23] VITALS: BMI 36.0
== END 2025-03-21 14:23 | disposition home or self-care (01) ==
LOC: HO.ENCR 13:31
PROVIDERS: PCP Internal Medicine; Visit Provider Dietitian, Registered
DX: E11.65 Type 2 diabetes mellitus with hyperglycemia (principal); Z79.4 Long term (current) use of insulin

== ENCOUNTER → 2025-03-21 13:30 | Outpatient (BNVA) | payer OTHER, SELFPAY | PROVIDERS: PCP Internal Medicine; Visit Provider Dietitian, Registered | DX: E11.65 Type 2 diabetes mellitus with hyperglycemia (principal); Z79.4 Long term (current) use of insulin | CPT/HCPCS: 97802 ==

== ENCOUNTER 2025-05-24 13:35 | Outpatient (REF) | payer OTHER, SELFPAY ==
--- OUTSIDE RECORDS SUMMARY | 2025-05-24 16:42 | XMS_ITS ---
Author Name Juaquin Murray APRN Address [address] [place] [address] Phone [phone] [facility] Care Team Providers Care Ob/Gyn Physician Name Role Phone Valentine Murray Unavailable [phone] Reason for Referral Not Available Allergies, adverse [...] BY MOUTH DAILY 2023-06-16 No Data Available [id number]-TVLK-Ixlrtjkq 50/325/40 mg Tab TAKE 1 TABLET BY [...] Female Functional Status Functional Category Effective Dates DRILL SERGEANT assists with cooking, cl eaning, laundry, showering and dressing. Pt reports using assistive device of: 2023-08-20 functional? 2023-09-30 Mental Status Status Date AOx 2023-08-20 Assessments Not Available Plan of Care Not Available
--- OUTSIDE RECORDS SUMMARY | 2025-05-24 16:42 | XMS_ITS | Clinical Summary ---
Author Organization [employer] [facility] Address [address] [place] [address] Care Team Providers Care Resident Care Technician Name Role Phone Unavailable Primary Care Provider [...] 04/24/20 23, 04/09/2022, 03/29/2022, Additional history exists Tobacco Screening 07/03/2024 07/03/2023 Dental X-Ray: Full Mouth 04/10/2025 04/09/2022, 0709/2014 COVID-19 Vaccine ( - season) 2025 Influenza Vaccine (#1) 2025 07/10/2016, 2014 HIB Vaccines Aged Out No longer eligi [...] Relevant to Health Maintenance Insurance [facility]
--- OUTSIDE RECORDS SUMMARY | 2025-05-24 16:42 | XMS_ITS | Encounter Summary ---
Author Organization [employer] Address [address] [facility] [place] [address] Care Team Providers Care Scooping Machine Tender Name Role Phone Unavailable Primary Care Provider Unavailabl e Reason for Visit * Reason Onset Date Comments appt and referrral 04/08/2023 Encounter Details Date Type Department Care Team (Late st Contact Info) Description 04/08/2023 Telephone C ADULT DENTAL [address] [place] [address] Edgardo Fox DMD [address] [place] [address] appt and referrral Social History Tobacco Use [...] is a referral scanned in chart for [facility] on 03/29/2022. She just had herappt today and was calling in because they stated she had to follow up with the Oral Surgeon. However while on the line with her, the front office administrator was charging her for the visit. She [...]
--- OUTSIDE RECORDS SUMMARY | 2025-05-24 16:42 | XMS_ITS | Encounter Summary ---
Author Organization [employer] [facility] Address [address] [facility] [address] [place] [address] Care Team Providers Care Ent Consultant Name Role Phone Unavailable Primary Care Provider [...]
== END 2025-05-24 13:36 | disposition home or self-care (01) ==
LOC: HO.US 13:35
PROVIDERS: PCP Internal Medicine; Visit Provider Nurse Practitioner Adult Health
DX: I73.9 Peripheral vascular disease, unspecified (principal)
CPT/HCPCS: 93923

== ENCOUNTER 2025-05-27 14:31 | Outpatient (AMB) | payer OTHER, SELFPAY ==
--- NOTE | 2025-05-27 14:33 | HO.NEPHOV_ITS ---
Vital Signs 05/27/25 14:42 Height 5 ft 3 in Weight 204 lb 4 oz BMI 36.2 BP 146/70 H Blood Pressure Location Lt brachial Position Sitting Pulse 76 Pulse Source Pulse Oximeter Pulse Oximetry (%) 96 Oxygen Delivery Method Room Air Intake Visit Reasons: FU-Unable to LM Allergies codeine (CODEINE) Allergy (Intermediate, Verified 03/18/25 13:41) RASH Seasonal Allergies Allergy (Mild, Verified 03/18/25 13:41) itchy eye HPI Comments Details: 74-year-old female with hypertension, diabetes mellitus type 2 on long-term current use of insulin, dyslipidemia and mild proteinuric chronic kidney disease with several an echoic cysts on the left kidney was seen in follow-up. Her last renal USS which showed left renal cysts. She follows up with Urology. Her renal functions had been stable.She denies chest pain, shortness of breath, paroxysmal nocturnal dyspnea, orthopnea, pedal edema, orthostatic symptoms. She does not take any excessive nonsteroidal anti-inflammatories. She tries to keep up with good hydration. She is on SGLT2 inhibitor. [facility] Medical History (Updated 03/18/25 @ 15:29 by KENDRICK Branch) Varicose vein of leg Cerebral venous infarction, chronic Uncontrolled type 2 diabetes mellitus with hyperglycemia, with long-term current use of insulin Dyslipidemia Headache Obesity due to excess calories Insomnia Diabetic polyneuropathy associated with type 2 diabetes mellitus Diabetic nephropathy associated with type 2 diabetes mellitus Mild nonproliferative diabetic retinopathy associated with type 2 diabetes mellitus Gallstones Chronic constipation Abdominal pain Dyslipidemia Skin lesion Venous (peripheral) insufficiency Arthritis Diabetes GERD (gastroesophageal reflux disease) Hx of simple renal cyst Hx of renal calculi Asthma Angina pectoris Elevated cholesterol Surgical History History of right cataract surgery H/O colonoscopy History of varicose veins History of tubal ligation Family History Father Stroke Mother Cancer Brother Mental health disorder Social History Household Members: None Household Members Other:: Lives alone Housing: Apartment Alcohol intake: never Patient Tobacco Use Status: Former Tobacco user Tobacco use type: Cigarette e-Cigarette/Vaping Use: Never Used Second Hand Smoke Exposure: No service: No Current occupational status: disabled Cognitive needs: No Hearing needs: No Vision needs: Yes Female Reproductive History Menstrual Age of Menarche: 13 Review of Systems Const All systems reviewed & are unremarkable except as noted in HPI and below Physical Exam Const General: comfortable and no acute distress Orientation/consciousness: patient oriented x3 HEENT Head: Yes normocephalic Mouth: Normal oral and palatal mucosa present Eyes EOM: EOMs intact bilaterally Neck Neck: Yes supple Resp Auscultation: clear to auscultation bilaterally Cardio Jugular venous distension: no JVD Rate: regular rate GI Palpation (GI): Soft to palpation Auscultation: normal bowel sounds General: Yes no CVA tenderness Back/Spine/Pelvis Back: no CVA tenderness Skin General skin exam: no rashes or lesions noted Neuro General: patient oriented x3 and moves all extremities Extrem General: Yes no pedal edema Assessment & Plan Assessment & Plan (1) Renal cyst: Code(s): N28.1 - Cyst of kidney, acquired Category: Medical (2) Diabetic nephropathy: Code(s): E11.21 - Type 2 diabetes mellitus with diabetic nephropathy Category: Medical Qualifiers: Diabetes mellitus type: type 2 Qualified Code(s): E11.21 - Type 2 diabetes mellitus with diabetic nephropathy (3) CKD (chronic kidney disease) stage 3, GFR 30-59 ml/min: Code(s): N18.30 - Chronic kidney disease, stage 3 unspecified Category: Medical Qualifiers: Chronic kidney disease stage 3 subtype: stage 3a (GFR 45-59) Qualified Code(s): N18.31 - Chronic kidney disease, stage 3a (4) HTN (hypertension): Code(s): I10 - Essential (primary) hypertension Category: Medical Qualifiers: Hypertension type: essential hypertension Qualified Code(s): I10 - Essential (primary) hypertension Plan 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 She has proteinuria. She is on lisinopril which I increased to 10 mg daily. Her last renal USS was reviewed. Her blood sugar control is better after initiating Jardiance. She avoids nonsteroidal anti-inflammatories and tries to maintain good hydration which I encouraged. She is going to follow-up with urology. F ollow-up lab work ordered. Shall repeat imaging studies with time. All questions answered. Follow-up appointment given Orders: Orders Creatinine Today E11.21 - Type 2 diabetes mellitus with diabetic nephropathy, I10 - Essential (primary) hypertension, N18.31 - Chronic kidney disease, stage 3a, N28.1 - Cyst of kidney, acquired Blood Urea Nitrogen Today E11.21 - Type 2 diabetes mellitus with diabetic nephropathy, I10 - Essential (primary) hypertension, N18.31 - Chronic kidney disease, stage 3a, N28.1 - Cyst of kidney, acquired Electrolytes Today E11.21 - Type 2 diabetes mellitus with diabetic nephropathy, I10 - Essential (primary) hypertension, N18.31 - Chronic kidney disease, stage 3a, N28.1 - Cyst of kidney, acquired Protein Creatinine Ratio, Ur Today E11.21 - Type 2 diabetes mellitus with diabetic nephropathy, I10 - Essential (primary) hypertension, N18.31 - Chronic kidney disease, stage 3a, N28.1 - Cyst of kidney, acquired Medications: Changed From lisinopril 5 mg PO DAILY 90 days 90 tabs 1RF To lisinopril 10 mg PO DAILY 90 tabs 1RF 90 days Discontinued amlodipine Discontinued Reason: Doctor's Order 5 mg PO DAILY 90 days 90 tabs 0RF Coding Level of Care Code Est Pt Level 4 (38807) Diagnoses Renal cyst N28.1 Diabetic nephropathy associated with type 2 diabetes mellitus E11.21 Diabetes mellitus type: type 2 Stage 3a chronic kidney disease N18.31 Chronic kidney disease stage 3 subtype: stage 3a (GFR 45-59) Essential hypertension I10 Hypertension type: essential hypertension
[2025-05-27 14:42] VITALS: BP 146/70; PULSE 76; O2SAT 96; BMI 36.2
--- OUTSIDE RECORDS SUMMARY | 2025-05-27 15:27 | XMS_ITS | Encounter Summary ---
Author Organization [employer] Address [address] [facility] [address] [place] [address] Care Team Providers Care Roll Over Press Operator Name Role Phone Unavailable Primary Care Provider Unavailabl e Reason for Visit * Reason Onset Date Comments appt and referrral 04/08/2023 Encounter Details Date Type Department Care Team (Late st Contact Info) Description 04/08/2023 Telephone C ADULT DENTAL [address] [place] [address] Edgardo Fox DMD [address] [place] [address] appt and referrral Social History Tobacco Use [...] is a referral scanned in chart for [facility] on 03/29/2022. She just had herappt today and was calling in because they stated she had to follow up with the Oral Surgeon. However while on the line with her, the front desk administrator was charging her for the visit. [...]
--- OUTSIDE RECORDS SUMMARY | 2025-05-27 15:27 | XMS_ITS ---
Author Name Juaquin Murray APRN Address [address] [place] [address] Phone [phone] [facility] Care Team Providers Care Poultry Farm Laborer Name Role Phone Valentine Murray Unavailable [phone] Reason for Referral Not Available Allergies, adverse [...] BY MOUTH DAILY 2023-06-16 No Data Available Lrusiixgcv-EACN-Tcyclana 50/325/40 mg Tab TAKE 1 TABLET BY [...] Female Functional Status Functional Category Effective Dates MOBILE APPLICATION ARCHITECT assists with cooking, cl eaning, laundry, showering and dressing. Pt reports using assistive device of: 2023-08-20 functional? 2023-09-30 Mental Status Status Date AOx 2023-08-20 Assessments Not Available Plan of Care Not Available
--- OUTSIDE RECORDS SUMMARY | 2025-05-27 15:27 | XMS_ITS | Encounter Summary ---
Author Organization [employer] [facility] Address [address] [place] [address] Care Team Providers Care Production Corrugator Name Role Phone Unavailable Primary Care Provider [...]
--- OUTSIDE RECORDS SUMMARY | 2025-05-27 15:27 | XMS_ITS | Clinical Summary ---
Author Organization [facility] Address [address] [facility] [address] [place] [address] Care Team Providers Care Woods Boss Name Role Phone Unavailable Primary Care Provider [...] Relevant to Health Maintenance [facility]
== END 2025-05-27 14:54 | disposition home or self-care (01) ==
LOC: HO.HKA 14:31
PROVIDERS: PCP Internal Medicine; Visit Provider Internal Medicine Nephrology
DX: N28.1 Cyst of kidney, acquired (principal); E11.21 Type 2 diabetes mellitus with diabetic nephropathy; N18.31 Chronic kidney disease, stage 3a; I10 Essential (primary) hypertension
CPT/HCPCS: 99214

== ENCOUNTER → 2025-05-27 14:31 | Outpatient (BNVA) | payer OTHER, SELFPAY | PROVIDERS: PCP Internal Medicine; Visit Provider Internal Medicine Nephrology | DX: E11.21 Type 2 diabetes mellitus with diabetic nephropathy (principal); I10 Essential (primary) hypertension; N18.31 Chronic kidney disease, stage 3a; N28.1 Cyst of kidney, acquired | CPT/HCPCS: 99212 ==

== ENCOUNTER 2025-05-30 11:28 | Outpatient (REF) | payer OTHER, SELFPAY ==
--- OUTSIDE RECORDS SUMMARY | 2025-05-30 13:00 | XMS_ITS ---
Author Name Juaquin Murray APRN Address [address] [place] [address] Phone [phone] [facility] Care Team Providers Care Health Aide Name Role Phone Valentine Murray Unavailable [phone] Reason for Referral Not Available Allergies, adverse [...] BY MOUTH DAILY 2023-06-16 No Data Available Rofaqmwism-QANK-Pmkmxycc 50/325/40 mg Tab TAKE 1 TABLET BY [...] Female Functional Status Functional Category Effective Dates MILLWRIGHT SUPERVISOR assists with cooking, cl eaning, laundry, showering and dressing. Pt reports using assistive device of: 2023-08-20 functional? 2023-09-30 Mental Status Status Date AOx 2023-08-20 Assessments Not Available Plan of Care Not Available
[2025-05-30 13:11] LABS: Alanine Aminotransferase 12 U/L (0-31); Albumin Level 4.1 g/dL (3.5-5.0); Alkaline Phosphatase 62 U/L (39-117); Anion Gap 11 (12-20); Aspartate Amino Transferase 22 U/L (5-31); Blood Urea Nitrogen 29 mg/dL (9-16); Calcium 9.5 mg/dL (8.4-10.2); Carbon Dioxide 30 mmol/L (22-29); Chloride 108 mmol/L (96-108); Cholesterol 138 mg/dL (<200); Estimated Glomerular Filt Rate 48; HDL Cholesterol 45 mg/dL (>40); Potassium 4.8 mmol/L (3.3-5.1); Sodium 144 mmol/L (135-145); Total Protein 7.5 g/dL (6.5-8.0); Triglycerides 110 mg/dL (<150)
[2025-05-30 14:25] LABS: Microalbum/Creatinine Ratio Ur 112.4 ug/mg cr (<30)
== END 2025-05-30 11:29 | disposition home or self-care (01) ==
LOC: HO.LAB 11:28
PROVIDERS: Absent Provider Internal Medicine Nephrology; PCP Internal Medicine; Visit Provider Internal Medicine
DX: E11.65 Type 2 diabetes mellitus with hyperglycemia (principal); E78.5 Hyperlipidemia, unspecified; R80.9 Proteinuria, unspecified; E55.9 Vitamin D deficiency, unspecified; Z79.4 Long term (current) use of insulin
CPT/HCPCS: 36415; 80053; 80061; 82043; 82306; 82570

== ENCOUNTER 2025-06-01 14:30 | Outpatient (AMB) | payer OTHER, SELFPAY ==
--- NOTE | 2025-06-01 14:44 | MHC.PC.OV ---
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 Required: No Accompanied by: Self / Same As Patient Allergies codeine (CODEINE) Allergy (Intermediate, Verified 06/01/25 14:56) RASH Seasonal Allergies Allergy (Mild, Verified 06/01/25 14:56) itchy eye Medication List - Last Reconciled 06/01/25 by Roxanne Glaser MD acetaminophen 1,000 mg (2 x 500 mg) PO Q6H PRN alcohol swabs (Alcohol Prep Pads) 1 pad topical BID 90 days amitriptyline 50 mg PO BEDTIME ascorbate calcium (vitamin C) 500 mg PO DAILY 90 days blood pressure test kit-medium As directed blood sugar diagnostic (Lender Sentinel Ultra Test strips) As directed to check blood sugar three times daily blood-glucose meter (Lender Sentinel Ultra2 Meter kit) As directed [id number]-mtqddicafyfwm-tzzs 50-325-40 mg 1 tab PO Q8H PRN calcium carbonate-vitamin D3 500 mg-10 mcg (400 unit) (Oyster Shell Calcium-Vitamin D3) 1 tab PO BID 90 days calcium polycarbophil (Fiber-Lax) 1,250 mg (2 x 625 mg) PO DAILY 90 days docusate sodium (Colace) 100 mg PO BID 30 days empagliflozin (Jardiance) 25 mg PO DAILY 90 days estradiol 0.01%(0.1mg/gram) Apply 1 in thinly to labial area and vaginal introitus 30 days glucose (Dex4 Glucose Quick Dissolve) 16 grams (4 x 4 gram) PO Q15M PRN Humalog KwikPen Insulin (insulin lispro) 4 units (0.04 mL) subcut .before dinner 30 days NS hydrochlorothiazide 12.5 mg PO DAILY 90 days hydroquinone 4% 1 appl topical DAILY 30 days insulin degludec (Tresiba FlexTouch U-100 insulin) 56 units subcut BEDTIME lactulose 15 mL PO BEDTIME 90 days lancets Use 1 lancet three times a day lancets (OpswareTouch Delica Plus Lancet) Use as directed to check blood glucose three times daily. lisinopril 10 mg PO DAILY 90 days magnesium oxide 500 mg PO DAILY 90 days melatonin 3 mg PO BEDTIME PRN methylcellulose (laxative) (Fiber Laxative (methylcellulose)) 500 mg PO BID multivitamin 1 tab PO DAILY nystatin 1 appl topical DAILY 30 days pen needle, diabetic (1st Tier Unifine Pentips Plus) Use 2 pen needle once a day polyethylene glycol 3350 (Miralax) 17 grams PO DAILY rosuvastatin 40 mg PO DAILY 90 days vitamin E (dl, acetate) 90 mg PO DAILY 90 days Tobacco use date assessed: 06/01/25 Fall risk assessment: No Falls in past year Last assessed Fall Risk: 06/01/25 Dental Screening Dental Screen Date: 06/01/25 HPI HPI Comments History of Present Illness Details The patient is a 75-year-old female presenting with the management of chronic conditions including hypertension, chronic kidney disease, and diabetes as well as hyperlipidemia. Hypertension has been managed with lisinopril, which was recently increased to 10 mg due to previously elevated readings. Blood pressure is currently well-controlled at 132/70 mmHg. Chronic kidney disease is being monitored, with recent lab results indicating normal liver enzymes and improved proteinuria levels from 375 mg to 112 mg. Type 2 diabetes mellitus is managed with dietary changes, including the use of coconut water and avoidance of sugary drinks, resulting in an improvement of HbA1c from 9.5% to 7.4%. The patient reports melasma, which is being addressed with dermatological consultation and the use of sunscreen. Hyperlipidemia is controlled with rosuvastatin, with LDL cholesterol at 71 mg/dL. The patient experiences constipation, managed with lactulose. Osteoarthritis causes significant back pain, affecting daily activities such as house cleaning, requiring frequent rest periods. Fatty liver disease is noted, but liver enzymes remain normal, indicating no immediate intervention is required. [facility], LAT[facility] Medical History (Updated 06/01/25 @ 15:11 by Roxanne Glaser MD) Varicose vein of leg Cerebral venous infarction, chronic Uncontrolled type 2 diabetes mellitus with hyperglycemia, with long-term current use of insulin Dyslipidemia Headache Obesity due to excess calories Insomnia Diabetic polyneuropathy associated with type 2 diabetes mellitus Diabetic nephropathy associated with type 2 diabetes mellitus Mild nonproliferative diabetic retinopathy associated with type 2 diabetes mellitus Gallstones Chronic constipation Abdominal pain Dyslipidemia Skin lesion Venous (peripheral) insufficiency Arthritis Diabetes GERD (gastroesophageal reflux disease) Hx of simple renal cyst Hx of renal calculi Asthma Angina pectoris Elevated cholesterol Surgical History History of right cataract surgery H/O colonoscopy History of varicose veins History of tubal ligation Family History Father Stroke Mother Cancer Brother Mental health disorder Social History Household Members: None Household Members Other:: Lives alone Housing: Apartment Alcohol intake: never Patient Tobacco Use Status: Former Tobacco user Tobacco use type: Cigarette e-Cigarette/Vaping Use: Never Used Second Hand Smoke Exposure: No service: No Current occupational status: disabled Cognitive needs: No Hearing needs: No Vision needs: Yes Female Reproductive History Menstrual Age of Menarche: 13 Questionnaire PHQ-9 Over the last 2 weeks, how often have you been bothered by any of the following problems? 1. Little interest or pleasure in doing things: not at all Source: Developed by Drs. Cyril Mesa, Yvette Granados, Norberto Mcrae and colleagues, with an educational irene from [employer]. Thrive Questionnaire Date Thrive assessed: 01/25/25 DINESH-7 AMB Questionnaire DINESH-7 Date DINESH - 7 assessed: 01/25/25 Source: Developed by Drs. Cyril Mesa, Yvette Granados, Norberto Mcrae and colleagues, with an educational irene from [employer]. Review of Systems Const All systems reviewed & are unremarkable except as noted in HPI and below Card Denies chest pain at rest, Denies chest pain with activity, Denies edema, Denies irregular heart rhythm, Denies claudication, Denies dyspnea, Denies dyspnea on exertion, Denies orthopnea, Denies paroxysmal nocturnal dyspnea and Denies slow heart rate Resp Denies cough, Denies dyspnea and Denies dyspnea on exertion GI Denies abdominal pain, Denies change in bowel habits, Denies excessive flatus, Denies nausea and Denies vomiting Neuro Denies lack of coordination Physical exam (Primary Care) Vital Signs: Last Vital Signs Pulse 57 06/01/25 14:45 BP 132/70 06/01/25 14:45 Pulse Ox 98 06/01/25 14:45 Oxygen Delivery Method Room Air 06/01/25 14:45 BMI result Body Mass Index 36.1 BMI Assessment/Plan discussion: High BMI High, discussed plan: lifestyle, weight reduction, dietary and physical activity Tobacco/Smoking Status: Tobacco use Status Tobacco use date assessed 06/01/25 06/01/25 14:51 Patient Tobacco Use Status Former Tobacco user 06/01/25 14:45 Tobacco use type Cigarette 06/01/25 14:45 e-Cigarette/Vaping Use Never Used 06/01/25 14:45 Thrive Assessment: Date of Thrive Assessment Date Thrive assessed 01/25/25 06/01/25 14:45 Resp Effort & Inspection: normal respiratory effort Auscultation: clear to auscultation bilaterally Cardio Jugular venous distension: no JVD Rate: regular rate Rhythm: regular rhythm Heart sounds: S1 normal heart sound present and S2 normal heart sound present Extrem General: Yes full ROM Results AMB Hemoglobin A1c AMB Hemoglobin A1c 7.4 % Last Edit by Greta North CMA on 06/01/25 15:00 Coding Level of Care Code Est Pt Level 4 (51130) Complex EM visit Add On G2211 Diagnoses Essential hypertension I10 Hypertension type: essential hypertension Dyslipidemia E78.5 Type 2 diabetes mellitus with diabetic nephropathy, without long-term current use of insulin E11.21 Diabetes mellitus buttermaker helper insulin use: without buttermaker helper use Diabetes mellitus complication status: with kidney complications Diabetes mellitus complication detail: with nephropathy Stage 3a chronic kidney disease N18.31 Chronic kidney disease stage 3 subtype: stage 3a (GFR 45-59) Melasma L81.1 Microalbuminuria R80.9 Time Spent (min) 24 Assessment & Plan Assessment & Plan (1) HTN (hypertension): Code(s): I10 - Essential (primary) hypertension Category: Medical Qualifiers: Hypertension type: essential hypertension Qualified Code(s): I10 - Essential (primary) hypertension (2) Dyslipidemia: Code(s): E78.5 - Hyperlipidemia, unspecified Category: Medical (3) DMII (diabetes mellitus, type 2): Code(s): E11.9 - Type 2 diabetes mellitus without complications Category: Medical Qualifiers: Diabetes mellitus fpc insulin use: without fpc use Diabetes mellitus complication status: with kidney complications Diabetes mellitus complication detail: with nephropathy Qualified Code(s): E11.21 - Type 2 diabetes mellitus with diabetic nephropathy (4) CKD (chronic kidney disease) stage 3, GFR 30-59 ml/min: Code(s): N18.30 - Chronic kidney disease, stage 3 unspecified Category: Medical Qualifiers: Chronic kidney disease stage 3 subtype: stage 3a (GFR 45-59) Qualified Code(s): N18.31 - Chronic kidney disease, stage 3a (5) Melasma: Code(s): L81.1 - Chloasma Category: Medical (6) Microalbuminuria: Code(s): R80.9 - Proteinuria, unspecified Category: Medical Plan Plan Patient was informed and verbally consented to the use of an ambient scribe for clinic note documentation during this visit. 1. Essential Hypertension The patient's hypertension is currently well-controlled with lisinopril, which was increased to 10 mg to manage previously elevated blood pressure readings. Continued monitoring of blood pressure is recommended to ensure stability. 2. Chronic Kidney Disease Chronic kidney disease is being monitored with regular lab tests, showing improved proteinuria levels and normal liver enzymes. No immediate intervention is required at this time. 3. Type 2 Diabetes Mellitus The patient's diabetes management includes dietary modifications, such as increased coconut water intake and reduced sugary drinks, leading to an improved HbA1c of 7.4%. Continued adherence to dietary changes is advised to maintain glycemic control. 4. Melasma Melasma is being managed with dermatological consultation and the use of sunscreen to prevent further pigmentation. Referral to dermatology for further management is recommended. 5. Hyperlipidemia Hyperlipidemia is controlled with rosuvastatin, maintaining LDL cholesterol at 71 mg/dL. Continued use of rosuvastatin is advised to maintain lipid levels. 6. Constipation Constipation is managed with lactulose, which the patient should continue using as needed. 7. Osteoarthritis Osteoarthritis is causing significant back pain, impacting daily activities. Pain management strategies and activity modifications are recommended to alleviate symptoms. 8. Fatty Liver Disease Fatty liver disease is noted, but liver enzymes are normal, indicating no immediate intervention is necessary. Orders: Orders AMB Hemoglobin A1c Today Z13.9 - Encounter for screening, unspecified Comprehensive [place] [facility] Panel Fast 4 Months E78.5 - Hyperlipidemia, unspecified Lipid Panel 4 Months E78.5 - Hyperlipidemia, unspecified Microalbumin, Random (w Creat) 4 Months R80.9 - Proteinuria, unspecified Referrals Dermatology Referral L81.1 - Chloasma Endocrinology Referral E11.65 - Type 2 diabetes mellitus with hyperglycemia, Z79.4 - watermelon inspector (current) use of insulin Medications: Changed From blood-glucose meter (OpswareTouch Ultra2 Meter kit) As directed 1 ea 0RF E11.3299 - Type 2 diabetes mellitus with mild nonproliferative diabetic retinopathy without macular edema, unspecified eye To blood-glucose meter As directed 1 ea 0RF E11.3299 - Type 2 diabetes mellitus with mild nonproliferative diabetic retinopathy without macular edema, unspecified eye Refilled blood sugar diagnostic (OneTouch Ultra Test strips) As directed to check blood sugar three times daily 100 ea 5RF vitamin E (dl, acetate) 90 mg PO DAILY 90 caps 2RF 90 days calcium carbonate-vitamin D3 500 mg-10 mcg (400 unit) (Oyster Shell Calcium-Vitamin D3) 1 tab PO BID 180 tabs 1RF 90 days M85.80 - Other specified disorders of bone density and structure, unspecified site polyethylene glycol 3350 (Miralax) 17 grams PO DAILY 510 grams 11RF rosuvastatin 40 mg PO DAILY 90 tabs 1RF 90 days lancets Use 1 lancet three times a day 300 ea 3RF E11.42 - Type 2 diabetes mellitus with diabetic polyneuropathy Discontinued flu vacc [id number] 6mos up(PF) Discontinued Reason: Order 0.5 mL IM ONCE 0.5 mL 0RF Z23 - Encounter for immunization
[2025-06-01 14:45] VITALS: BP 132/70; PULSE 57; O2SAT 98; BMI 36.1
--- OUTSIDE RECORDS SUMMARY | 2025-06-01 15:39 | XMS_ITS ---
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 Pt reports using assistive device of: 2023-08-20 functional? 2023-09-30 Mental Status Status Date AOx 2023-08-20 Assessments Not Available Plan of Care Not Available
--- OUTSIDE RECORDS SUMMARY | 2025-06-01 15:40 | XMS_ITS | Encounter Summary ---
Author Organization [employer] Address [address] [place] [address] Care Team Providers Care Prime Broker Name Role Phone Unavailable Primary Care Provider Unavailabl e Reason for Visit * Reason Onset Date Comments appt and referrral 04/08/2023 Encounter Details Date Type Department Care Team (Late st Contact Info) Description 04/08/2023 Telephone C ADULT DENTAL [address] [place] [address] Edgardo Fox DMD [address] [place] [address] appt and referrral Social History Tobacco Use [...] is a referral scanned in chart for [facility] on 03/29/2022. She just had herappt today and was calling in because they stated she had to follow up with the Oral Surgeon. However while on the line with her, the front office associate was charging her for the visit. She [...]
--- OUTSIDE RECORDS SUMMARY | 2025-06-01 15:40 | XMS_ITS | Clinical Summary ---
Author Organization [facility] Address [address] [place] [address] Care Team Providers Care Gauge Checker Name Role Phone Unavailable Primary Care Provider [...] Relevant to Health Maintenance [facility]
--- OUTSIDE RECORDS SUMMARY | 2025-06-01 15:40 | XMS_ITS | Encounter Summary ---
Author Organization [facility] Address [address] [place] [address] Care Team Providers Care Machine Maintenance Technician Name Role Phone Unavailable Primary Care [...]
== END 2025-06-01 15:20 | disposition home or self-care (01) ==
LOC: HO.HMCH 14:31
PROVIDERS: PCP Internal Medicine; Visit Provider Internal Medicine
DX: I10 Essential (primary) hypertension (principal); E78.5 Hyperlipidemia, unspecified; E11.21 Type 2 diabetes mellitus with diabetic nephropathy; N18.31 Chronic kidney disease, stage 3a; L81.1 Chloasma; R80.9 Proteinuria, unspecified; Z13.9 Encounter for screening, unspecified

== ENCOUNTER → 2025-06-01 14:30 | Outpatient (BNVA) | payer OTHER, SELFPAY | PROVIDERS: PCP Internal Medicine; Visit Provider Internal Medicine | DX: Z00.00 Encounter for general adult medical examination without abnormal findings (principal); E11.22 Type 2 diabetes mellitus with diabetic chronic kidney disease; E11.21 Type 2 diabetes mellitus with diabetic nephropathy; E11.65 Type 2 diabetes mellitus with hyperglycemia; E11.3299 Type 2 diabetes mellitus with mild nonproliferative diabetic retinopathy without macular edema, unspecified eye; E11.42 Type 2 diabetes mellitus with diabetic polyneuropathy; I12.9 Hypertensive chronic kidney disease with stage 1 through stage 4 chronic kidney disease, or unspecified chronic kidney disease; N18.31 Chronic kidney disease, stage 3a; E78.5 Hyperlipidemia, unspecified; L81.1 Chloasma; R80.9 Proteinuria, unspecified; K59.00 Constipation, unspecified; K76.0 Fatty (change of) liver, not elsewhere classified | CPT/HCPCS: 83036; 99212 ==

== ENCOUNTER 2025-08-17 10:28 | Outpatient (REF) | payer OTHER, SELFPAY ==
[2025-08-17 11:43] LABS: Anion Gap 14 (12-20); Blood Urea Nitrogen 23 mg/dL (9-16); Carbon Dioxide 27 mmol/L (22-29); Chloride 108 mmol/L (96-108); Estimated Glomerular Filt Rate 57; Potassium 4.5 mmol/L (3.3-5.1); Sodium 144 mmol/L (135-145)
[2025-08-17 12:05] LABS: Protein/Creatinine Ratio, Ur 0.31 (<0.2); Total Protein Urine Random 29 mg/dL (<12)
--- OUTSIDE RECORDS SUMMARY | 2025-08-17 13:05 | XMS_ITS ---
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 Pt reports using assistive device of: 2023-08-20 functional? 2023-09-30 Mental Status Status Date AOx 2023-08-20 Assessments Not Available Plan of Care Not Available
== END 2025-08-17 10:29 | disposition home or self-care (01) ==
LOC: HO.LAB 10:28
PROVIDERS: PCP Internal Medicine; Visit Provider Internal Medicine Nephrology
DX: I12.9 Hypertensive chronic kidney disease with stage 1 through stage 4 chronic kidney disease, or unspecified chronic kidney disease (principal); E11.22 Type 2 diabetes mellitus with diabetic chronic kidney disease; N18.31 Chronic kidney disease, stage 3a; N28.1 Cyst of kidney, acquired
CPT/HCPCS: 36415; 80051; 82565; 82570; 84156; 84520